=== PATIENT | female | born 1960 | race Caucasian/White ===

== ENCOUNTER 2020-05-27 23:11 | Emergency (ER) | payer OTHER ==
--- OUTSIDE RECORDS SUMMARY | 2020-05-27 23:14 | XMS REPORT | Clinical Summary ---
:1960 Author Organization [facility] Address [address] [place] [address] Care Team Providers Name Role Phone Dyllan Beckford MD Primary Care Provider Allergies Active Allergy Reactions Severity Noted Date Comments Ciprofloxacin Other (See 10/30/2013 Reaction-heada breana, bones Comments) ache Other Itching, Rash High 10/30/2013 Hydrocodonieph en reaction rash/itch-per s can chart- Staydohl-reacti on-throat swells,fever-pe r scan chart Penicillins Swelling High 10/30/2013 Throat swells Sulfa (Sulfonamide Itching, Rash Low 10/30/2013 Sulfa Antibiotics) Tramadol Other (See 10/30/2013 Reactions-sever e stomach Comments) pain Medications Medication Sig Dispensed Refills Start End Status Date Date PROAIR HFA 90 INHALE 2 PUFFS 2 A ctive mcg/actuation BY MOUTH 4 TIMES 6 inhaler A DAY NEEDED amLODIPine Take 5 mg by 3 Active (NORVASC) 5 mg mouth once 6 tablet daily. sucralfate 0 Active (CARAFATE) 1 gram 6 tablet PREPOPIK 10 mg-3.5 FOLLOW 0 A ctive gram-12 gram INSTRUCTIONS 6 powder in packet GIVEN BY PHYSICIAN omeprazole 0 Active (PriLOSEC) 40 MG 6 capsule FLUARIX QUAD TO BE 0 Active [id number], PF, ADMINISTERED BY 6 syringe vaccine PHARMACIST FOR IMMUNIZATION calcitriol TAKE 1 CAPSULE 1 Acti ve (ROCALTROL) 0.5 BY MOUTH 3 6 MCG capsule (THREE) TIMES DAILY. vitamin A 8000 Take 8,000 Units 0 Active UNIT capsule by mouth daily. ferrous sulfate Take 1 tablet by 0 Active (IRON ORAL) mouth daily. MULTIVITAMIN ORAL Take 1 tablet by 0 Active mouth daily. syringe with 1 Syringe every 1 Syringe 12 A ctive needle, safety 3 30 (thirty) 8 mL 22 gauge x 1 days. /" syringeIndications : Status post bariatric surgery ondansetron Take 1 tablet (4 20 tablet 0 A ctive (ZOFRAN) 4 MG mg total) by 9 tablet mouth every 8 (eight) hours as needed for nausea or vomiting. cyanocobalamin Inject 1 mL 3 mL 4 Act spencer 1,000 mcg/mL (1,000 mcg 9 injectionIndicatio total) into the ns: Status post shoulder, thigh, bariatric surgery or buttocks every 30 (thirty) days. ondansetron Take 1 tablet (4 30 tablet 1 A ctive (ZOFRAN) 4 MG mg total) by 9 tablet mouth every 8 (eight) hours as needed for nausea or vomiting. dicyclomine Take 1 capsule 120 capsule 4 A ctive (BENTYL) 10 MG (10 mg total) by 9 020 capsule mouth 4 (four) times a day before meals and nightly. ferrous gluconate Take 1 tablet 30 tablet 3 Active (FERGON) 324 MG (324 mg total) 9 020 tablet by mouth daily with breakfast. cyanocobalamin Inject 1 mL 1 mL 0 Dis continued 1,000 mcg/mL (1,000 mcg 8 019 (Reord er) injectionIndicatio total) into the ns: Status post shoulder, thigh, bariatric surgery or buttocks every 30 (thirty) days. cyanocobalamin NJECT 1 MLIM 3 mL 4 Di scontinued 1,000 mcg/mL EVERY MONTH 9 019 (Reor darwin) injectionIndicatio ns: Status post bariatric surgery hyoscyamine Take 1 tablet 30 tablet 2 Expi red (LEVSIN) 0.125 mg (0.125 mg total) 9 019 tablet by mouth every 4 (four) hours as needed for cramping for up to 30 days. Active Problems Problem Noted Date Epigastric abdominal pain 07/25/2019 Last Assessment & Plan: The patient was also sent for an amylase and lipase which returned as normal. Patient has had a normal ultrasound as w ell as a CT scan of her abdomen pelvis. The patient is already had a ERCP with stent placement and stent retrieval. I have been trying to obtain these records from [facility]. The patient reports her last upper endoscopy was approximately 1 year ago. The patient will be referred to GI for repeat upper endoscopy and any ad ditional work-up necessary. The patient was also given additional Zofran. Patient h as had normal LFTs on 07/21/2019 and was sent for an amylase and lipase which were als o normal today. S/P ERCP 03/06/2017 Common bile duct obstruction 03/06/2017 Bile duct obstruction 03/06/2017 Status post gastric bypass for obesity 11/09/2016 Last Assessment & Plan: Patient was instructed to continue regular diet and increase intake of high- calorie foods like nuts. Weight gain goal of 10lbs at next visit. Patient to provide color copy of January 2019 EGD from [facility] for review. If her abdominal pain still persists in 1 month, she was instructed to call our office to schedule UGI and EGD. Possible abdominal CT at a later time. Labs reviewed with the patient in de tail. Continue taking PO iron and PPI. Discontinue carafate. The patient was allowed ample time for n umerous questions that were answered to her satisfaction. The patient was examined and evaluated with Dr. Rodas and he agrees with the above plan. Return to clinic in 1 year for the next follow-up visit. History of hyperparathyroidism 11/09/2016 Wheezing 08/30/2016 Asthma 08/30/2016 Urgency of urination 08/30/2016 Overview: Urgency and nocturia weak bladder Difficulty urinating 08/30/2016 Overview: Pain/buring with urinating Joint pain 08/30/2016 Back pain 08/30/2016 Major bone injuries 08/30/2016 Non-alcoholic fatty liver disease 10/20/2014 Encounters Date Type Specialty Care Team Description 09/05/2019 Telephone Gastroenterology Mihir Reina MA 09/05/2019 Orders Only Gastroenterology Venkat Garrett MD 09/03/2019 Office Visit Gastroenterology Ap Reyes, Abdominal pain, unspecified abdominal location (Primary Dx); Biliary strictu re; History of sinai bin bypass; Weight loss 09/03/2019 Orders Only Gastroenterology Venkat Garrett MD 09/02/2019 Refill General Surgery Douglas Rodas, Status po st bariatric MD surgery 09/02/2019 Documentation General Surgery Luz Maria Kerns, Outside testing MA 08/28/2019 Telephone Gastroenterology Palak Rizvi, CURT 08/26/2019 Hospital Encounter Radiology Douglas Rodas MD 08/25/2019 Refill General Surgery Douglas Rodas, Status po st bariatric MD surgery 08/07/2019 Telephone Gastroenterology Mihir Reina MA 07/24/2019 Lab Lab Douglas Rodas, Abdominal pa in, unspecified abd ominal location 07/24/2019 Office Visit General Surgery Douglas Rodas, Epigastri c abdominal MD pain (Primary D x) 07/24/2019 Orders Only General Surgery Douglas Rodas, Abdominal pain, MD unspecified abd ominal location (Prima ry Dx) 07/21/2019 Refill General Surgery Douglas Rodas, Status po st bariatric surgery 07/18/2019 Orders Only General Surgery Douglas Rodas, Abdominal pain, MD unspecified abd ominal location (Prima ry Dx) 07/11/2019 Hospital Encounter Radiology Douglas Rodas, Left u pper quadrant MD pain 07/02/2019 Orders Only General Surgery Douglas Rodas, Left uppe r quadrant MD pain (Primary D x) 07/01/2019 Telephone General Surgery Carmen Ramos, CURT 07/01/2019 Telephone General Surgery Carmen Ramos, CURT 06/25/2019 Hospital Encounter Radiology Douglas Rodas, Status post gastric MD bypass for obes ity 06/16/2019 Orders Only General Surgery Douglas Rodas, Status po st gastric MD bypass for obes ity (Primary Dx) 06/16/2019 Orders Only General Surgery Douglas Rodas MD 06/06/2019 Office Visit General Surgery Douglas Rodas, Hx of acu te pancreatitis (Primary Dx); MD History of morb id obesity; Iron deficiency anemia, unspecified iron deficiency anemia type; Vitamin A defic iency; Status post gas tric bypass for obesity; Epigastric pain 06/02/2019 Telephone General Surgery Carmen Ramos, RN after 05/27/2019 Family History Medical History Relation Name Comments No Known Problems Brother Cancer Father mesotheleoma can cer Hypertension Mother Pneumonia Mother Rheum arthritis Mother Stroke Other Grandfather Diabetes Other Uncle Stroke Other Uncle No Known Problems Sister No Known Problems Sister No Known Problems Sister Colon cancer Neg Hx Colon polyps Neg Hx Relation Name Status Comments Brother Alive Father (Age 79) Mother (Age 76) Other Grandfather Other Uncle Sister Alive Sister Alive Sister Alive Social History Tobacco Use Types Packs/Day Years Used Date Former Smoker Smokeless Tobacco: Never Used Alcohol Use Drinks/Week oz/Week Comments No Sex Assigned at Date Recorded Not on file Job Start Date Occupation Industry Not on file Not on file Not on file Travel History Travel Start Travel End No recent travel history available. Last Filed Vital Signs Vital Sign Reading Time Taken Comments Blood Pressure 138/76 09/03/2019 1:08 PM CDT Pulse 71 09/03/2019 1:08 PM CDT Temperature 36.9 C (98.5 F) 07/24/2019 11:48 AM CDT Respiratory Rate 16 07/24/2019 11:48 AM CDT Oxygen Saturation - - Inhaled Oxygen Concentration - - Weight 53 kg (116 lb 12.8 oz) 09/03/2019 1:08 PM CDT Height 160 cm (5' 3") 09/03/2019 1:08 PM CDT Body Mass Index 20.69 09/03/2019 1:08 PM CDT Plan of Treatment Date Type Specialty Care Team Description 06/10/2020 Office Visit General Surgery Douglas Rodas MD [address] [facility] [address] [place], [place] [address] [phone] Health Maintenance Due Date Last Done Comments BREAST CANCER SCREENING 2008 SHINGLES VACCINES (#1) 2008 CERVICAL CANCER SCREENING 11/26/2014 11/26/2011 INFLUENZA VACCINE 06/26/2020 09/30/2019 COLONOSCOPY SCREENING 11/26/2020 11/26/2010 Procedures Procedure Name Priority Date/Time Associated Diagnosis Comme nts LIPASE LEVEL Routine 09/03/2019 1:48 Abdominal pain, Results for this PM CDT unspecified procedure are i n abdominal locati on the results Biliary stricture section. AMYLASE LEVEL Routine 09/03/2019 1:48 Abdominal pain, Results for this PM CDT unspecified procedure are i n abdominal locati on the results Biliary stricture section. CBC WITH PLATELET AND Routine 09/03/2019 1:48 Abdominal pain, Results for this DIFFERENTIAL PM CDT unspecified procedure are i n abdominal locati on the results Biliary stricture section. MRI ABD/PELVIC Routine 08/21/2019 11:09 Results f or this EXTERNAL STUDY AM CDT procedure are in the results section. LIPASE LEVEL Routine 07/24/2019 12:17 Abdominal pain, Results for this PM CDT unspecified procedure are i n abdominal location the resul ts section. AMYLASE LEVEL Routine 07/24/2019 12:17 Abdominal pain, Results for this PM CDT unspecified procedure are i n abdominal location the resul ts section. HEPATIC FUNCTION Routine 07/21/2019 9:20 Abdominal pain, Resu lts for this PANEL AM CDT unspecified procedure are i n abdominal location the resul ts section. CT ABDOMEN PELVIS W Routine 07/11/2019 11:34 Left upper quadra nt Results for this CONTRAST AM CDT pain procedure are i n the results section. ESTIMATED GFR Routine 07/11/2019 10:20 Results fo r this AM CDT procedure are i n the results section. POC CREATININE Routine 07/11/2019 10:20 Results f or this AM CDT procedure are i n the results section. ZZFL UGI W AIR W KUB Routine 06/25/2019 10:35 Status post sinai bin Results for this AM CDT bypass for obesity procedure are in the results section. after 05/27/2019 Results CBC with platelet and differential (09/03/2019 1:48 PM CDT) WBC 7.0 3.8 - 10.8 [facility] Thousand/uL [place] RBC 4.34 3.80 - 5.10 [facility] Million/uL [place] HGB 10.9 (L) 11.7 - 15.5 [facility] g/dL [place] HCT 34.6 (L) 35.0 - 45.0 % [facility] [place] MCV 79.7 (L) 80.0 - 100.0 fL [facility] [place] MCH 25.1 (L) 27.0 - 33.0 pg [facility] [place] MCHC 31.5 (L) 32.0 - 36.0 [facility] g/dL [place] RDW 14.9 11.0 - 15.0 % [facility] [place] Platelet count 299 140 - 400 [facility] Thousand/uL [place] MPV 10.2 7.5 - 12.5 fL [facility] [place] Neutrophils, absolute 4,025 1,500 - 7,800 [facility] cells/uL [place] Lymphocytes, absolute 2,114 850 - 3,900 [facility] cells/uL [place] Monocytes, absolute 581 200 - 950 [facility] cells/uL [place] Eosinophils, absolute 182 15 - 500 [facility] cells/uL [place] Basophils, absolute 98 0 - 200 [facility] cells/uL [place] Neutrophils 57.5 % [facility] [place] Lymphocytes 30.2 % [facility] [place] Monocytes 8.3 % [facility] [place] Eosinophils 2.6 % [facility] [place] Basophils + RC 1.4 % [facility] [place] Specimen Blood Resulting Agency Comment Performing Organization Information: Site ID: [id number] [facility] Address: [address] [place], [place] [id number] Director: Jose Carlos Iyer Performing Organization Address [facility] [place] [address] Lipase level (09/03/2019 1:48 PM CDT)Only the most recent of2 resultswithin the time period is included. Pathologist Sig nature Lipase 14 7 - 60 U/L [facility] [place] Specimen Blood Resulting Agency Comment Performing Organization Information: Site ID: [id number] Name: [facility] Address: [address] [place] [phone] Director: Jose Carlos Iyer Performing Organization Address [facility] [place] [address] Amylase level (09/03/2019 1:48 PM CDT)Only the most recent of2 resultswithin the time period is included. Pathologist Sig nature Amylase 16 (L) 21 - 101 U/L [facility] [place] Specimen Blood Resulting Agency Comment Performing Organization Information: Site ID: [id number] Name: [facility] Address: [address] [place] [phone] Director: Jose Carlos Iyer Performing Organization Address [facility] [place] [address] MRI Abd/Pelvic External Study (08/21/2019 11:09 AM CDT) Specimen Narrative Performed At This exam was not acquired at a [facility] facility and has not been [facility] interpreted by a [facility] Provider. T he exam was imported into our imaging system for comparisons purposes. Performing Organization Address City/[facility]/Zipcode Phone Number [facility] [address] [place] [address] Hepatic function panel (07/21/2019 9:20 AM CDT) Pathologist [facility] Protein 6.6 6.1 - 8.1 g/dL [facility] [place] Albumin, S 4.0 3.6 - 5.1 g/dL [facility] [place] Globulin, total 2.6 1.9 - 3.7 g/dL [facility] (calc) [place] Albumin/globulin ratio 1.5 1.0 - 2.5 [facility] (calc) [place] Total bilirubin 0.6 0.2 - 1.2 mg/dL [facility] [place] Bilirubin direct 0.1 < OR = 0.2 [facility] mg/dL [place] Bilirubin, indirect 0.5 0.2 - 1.2 mg/dL [facility] (calc) [place] Alkaline phosphatase 75 33 - 130 U/L [facility] [place] AST 17 10 - 35 U/L [facility] [place] ALT 13 6 - 29 U/L [facility] [place] Specimen Blood Resulting Agency Comment Performing Organization Information: Site ID: [id number] Name: [facility] Address: [address] [place] [phone] Director: Jose Carlos Iyer Performing Organization Address City/[facility] Phone Number [facility] [place] [phone] CT Abdomen Pelvis W Contrast (07/11/2019 11:34 AM CDT) Specimen Narrative Performed At EXAMINATION: CT ABDOMEN PELVIS W CONTR AST HM [facility] CLINICAL HISTORY: R10.12 Left upper qu adrant pain, LUQ Pain COMPARISON: 01/19/2015 TECHNIQUE: CT of the abdomen and pelvi s with intravenous contrast. CT imaging was performed with iterative reconstruction techniques and/or automated exposure control to reduce rad iation dose. FINDINGS: LOWER THORAX: Mild bibasilar atelectasis. There has been interval repair of a right-sided Morgagni hernia with mesh. No recurrent hernia appreciated. HEPATOBILIARY: Cholecystectomy. No foc al hepatic lesions. SPLEEN: No splenomegaly. PANCREAS: No focal masses or ductal di lation. ADRENALS: No adrenal nodules. KIDNEYS: No hydronephrosis, stones or solid masses. GI TRACT: Generalized colonic diverticulosis without definite CT evidence of diverticulitis. Evaluation is somewhat charlton ited by paucity of intra-abdominal fat. The appendix is not localized for evaluation. There has been previous Torres-en-Y gastric bypa ss with expectant postoperative appearance. There is a t iny hiatal hernia (coronal image 27). There is no bowel ob struction. PERITONEUM/RETROPERITONEUM: Prominent atheroscleroti c disease in the abdominal aorta which is nonaneurysmal. There is no ab dominal adenopathy or ascites. There are some postsurgical changes in the anterior abdominal wall in the right lower quadra nt. PELVIC ORGANS/BLADDER: Hysterectomy. N o pelvic adenopathy or fluid. BONES AND SOFT TISSUES: Bilateral hip arthroplasties . Degenerative changes in the spine. IMPRESSION: 1. No definite acute finding to explain patient's le ft upper quadrant pain. 2. Status post previous Torres-en-Y gastric bypass, Mo rgagni hernia repair, cholecystectomy and hysterectomy . 3. Additional findings as above [id number] Procedure Note Interface, Radiology Results Incoming - 07/11/2019 12:09 PM CDT EXAMINATION: CT ABDOMEN PELVIS W CONTRAST CLINICAL HISTORY: R10.12 Left upper walter drant pain, LUQ Pain COMPARISON: 01/19/2015 TECHNIQUE: CT of the abdomen and pelvis with intravenous contrast. CT imaging was performed with iterative reconstruction techniques and/or automated exposure control to reduce radiation dose. FINDINGS: LOWER THORAX: Mild bibasilar atelectasi s. There has been interval repair of a right-sided Morgagni hernia with mesh. No recurrent hernia appreciated. HEPATOBILIARY: Cholecystectomy. No foca l hepatic lesions. SPLEEN: No splenomegaly. PANCREAS: No focal masses or ductal dil ation. ADRENALS: No adrenal nodules. KIDNEYS: No hydronephrosis, stones or s olid masses. GI TRACT: Generalized colonic diverticu losis without definite CT evidence of diverticulitis. Evaluation is somewhat limited by paucity of intra-abdominal fat. The appendix is not localized for evaluation. There has been previous Torres-en-Y gastric bypa ss with expectant postoperative appearance . There is a tiny hiatal hernia (coronal image 27). There is no bowel obstruction. PERITONEUM/RETROPERITONEUM: Prominent a therosclerotic disease in the abdominal aorta which is nonaneurysmal. There is no abdominal adenopathy or ascites. There are some postsurgical changes in the anterior abdominal wall in the right lower quadrant. PELVIC ORGANS/BLADDER: Hysterectomy. No pelvic adenopathy or fluid. BONES AND SOFT TISSUES: Bilateral hip a rthroplasties. Degenerative changes in the spine. IMPRESSION: 1. No definite acute finding to explain patient's left upper quadrant pain. 2. Status post previous Torres-en-Y gastr ic bypass, Morgagni hernia repair, cholecystectomy and hysterectomy. 3. Additional findings as above [id number] Performing Organization Address [facility] Hospital[facility] Phone Number [address] [address] Estimated GFR (07/11/2019 10:20 AM CDT) Pathologist [facility] Estimated GFR >=90 mL/min/1.73 [facility] Comment: HOSPITAL Catergory Units Interpretation G1 >=90 Normal or high G2 60-89 Mildly decreased G3a 45-59 Mildly to moderately decreas ed G3b 30-44 Moderately to severely decre ased G4 15-29 Severely decreased G5 <15 Kidney failure The eGFR was calculated using the Chronic Kidney Disea se Epidemiology Collaboration (CKD-EPI) equation. Interpretation is based on recommendations of the National Kidney Foundation-Kidney Disease Outcomes Walter lity Initiative (NKF-KDOQI) published in 2014. Specimen Blood Performing Organization Address [facility] Phone Number [facility] DEPARTMENT OF PATHOLOGY AND [address] [place] [address] [phone] [address] POC creatinine (07/11/2019 10:20 AM CDT) [facility] POC creatinine 0.6 0.5 - 0.9 mg/dl [facility] Comment: HOSPITAL Meter ID: [id number] Strategic Planner: Adalberto Garcia Specimen Blood Performing Organization Address [facility]/Zipcode Phone Number [facility] DEPARTMENT OF PATHOLOGY AND [address] [place] [address] [phone] [address] FL UGI w Air W KUB (06/25/2019 10:35 AM CDT) Specimen Narrative Performed At EXAMINATION: FL UGI W AIR W KUB [facility] CLINICAL HISTORY: Z98.84 Bariatric kaitlyn sudha status, s p rygb COMPARISON: None. TECHNIQUE: Effervescent crystals and barium administ ered by mouth. Patient imaged in the upright and recu mbent positions. FLUOROSCOPIC TIME: 1.7 minutes . 16 image(s) obtained. Findings: Abdomen shows nonobstructive bowel gas pattern. Bilate ral hip arthroplasty partially seen. Surgical clips projecting in the right hemiabdomen and ventral hernia repair with mesh at the epigastric region midline. Esophageal motility well-maintained. Esophagus demonst rates no mass or stricture. No mucosal irregularity. Status post gastri c bypass. Small sliding hiatal hernia. No gastroesophageal reflux obse rved however. The gastric pouch demonstrates nothing unusual. Contrast readily traverses the gastrojejunost porfirio. The visualized small bowel demonstrates noth ing unusual. IMPRESSION: Small sliding hiatal hernia, without GE reflux observ ed. Otherwise, status post gastric bypass with satisfac tory postoperative appearance. [id number] Procedure Note Interface, Radiology Results Incoming - 06/25/2019 1:17 PM CDT EXAMINATION: FL UGI W AIR W KUB CLINICAL HISTORY: Z98.84 Bariatric surg yovany status, s p rygb COMPARISON: None. TECHNIQUE: Effervescent crystals and ba rium administered by mouth. Patient imaged in the upright and recumbent positions. FLUOROSCOPIC TIME: 1.7 minutes . 16 image(s) obtained. Findings: Abdomen shows nonobstructive bowel gas p attern. Bilateral hip arthroplasty partially seen. Surgical clips projecting in the right hemiabdomen and ventral hernia repair with mesh at the epigastric region midline. Esophageal motility well-maintained. Eso phagus demonstrates no mass or stricture. No mucosal irregularity. Status post gastric bypass. Small sliding hiatal hernia. No gastroesophageal reflux observed however. The gastric pouch demonstrates nothing unusual. Contrast readily traverses the gastrojejunostomy. The visualized small bowel demonstrates nothing unusual. IMPRESSION: Small sliding hiatal hernia, without GE reflux observed. Otherwise, status post gastric bypass with satisfactory postoperative appearance. [id number] Performing Organization Address City/State/Zipcode Phone Number [facility] [address] [place] [address] after 05/27/2019 Insurance Payer Benefit Plan / Subscriber ID Effective Dates Phone Addre ss Type Group MEDICARE MEDICARE PART A xxxxxxxxxxx 1996-Present [facility] [place] B AETNA AETNA PPO OPEN xxxxxxxxxx 2003-Present PPO CHOICE Advance Directives For more information, please contact: [phone] Type Date Recorded Patient Requirements Manager Explanati on Advance Directives, Living Will and Medical Power of Land Leasing Examiner
--- OUTSIDE RECORDS SUMMARY | 2020-05-27 23:15 | XMS REPORT | Clinical Summary ---
:1960 Author Organization [facility] Address [address] [place] [address] Care Team Providers Name Role Phone Nikolay Beckford MD Primary Care Provider Allergies Active Allergy Reactions Severity Noted Date Comments Hydrocodone-Acetaminophe Nausea And Vomiting, Low 01/25/20 17 n Rash Adhesive Itching, Swelling High 03/01/2017 Tongue swe lling Butorphanol Tartrate Anaphylaxis High 01/24/2017 Cephalexin Hives Medium 01/24/2017 Ciprofloxacin Other (See Comments) Medium 01/24/2017 Bone a ches Codeine Rash Low 01/24/2017 Fentanyl Anxiety High 01/24/2017 Fentanyl patch only Gabapentin Itching Medium 01/24/2017 Lidocaine Tinitus Low 03/06/2017 Lidocaine patch Meloxicam Shortness Of Breath High 11/14/2019 Difficul ty breathing Morphine Hives, Nausea And High 01/24/2017 Tongue swe lling Vomiting, Swelling Penicillins Anaphylaxis High 01/24/2017 Pentazocine Anaphylaxis High 01/24/2017 Sulfa (Sulfonamide Rash Low 01/24/2017 Antibiotics) Tramadol Anaphylaxis High 01/24/2017 Acetaminophen Nausea And Vomiting, Low 01/24/2017 Rash Medications Medication Sig Dispensed Refills Start End Date Status Date calcitriol Take 1 mcg by mouth 0 Active (ROCALTROL) 0.5 2 (two) times daily MCG capsule . cyanocobalamin Inject 1,000 mcg 0 Active (VITAMIN B-12) intramuscularly 1,000 mcg/mL every 30 (thirty) injection days. albuterol HFA Inhale 2 puffs by 0 Active (VENTOLIN HFA) 90 mouth via inhaler mcg/actuation every 6 (six) hours inhaler as needed for Wheezing or Shortness of Breath. docosanol (ABREVA) Apply small amount 2 g 0 Active 10 % Crea to areas on 7 affected area of lips 5 times a day. omeprazole Take 40 mg by mouth 0 Active (PRILOSEC) 40 MG 2 (two) times daily capsule . MULTIVITAMIN-VP SALES Take by mouth. 0 Active ALS NO.55 (CENTRUM FLAVOR BURST ADULT ORAL) calcium carbonate Take 2,000 mg by 0 Active 1250 MG capsule mouth 2 (two) times daily with breakfast and dinner . vitamin A 8000 Take 8,000 Units by 0 Active UNIT capsule mouth daily. HYDROmorphone Take 1 tablet (2 mg 40 tablet 0 Active (DILAUDID) 2 MG total) by mouth 9 tablet every 6 (six) hours as needed for Pain for up to 10 doses. Max Daily Amount: 8 mg ferrous gluconate Take 648 mg by 0 Active (FERGON) 324 MG mouth 2 (two) times tablet daily . magnesium oxide Take by mouth daily 0 Active 500 mg Cap . ondansetron Take 8 mg by mouth 0 Active (ZOFRAN-ODT) 8 MG 2 (two) times daily disintegrating as needed for tablet Nausea. amLODIPine Take 2.5 mg by 0 Acti ve (NORVASC) 2.5 MG mouth daily. tablet pancrelipase, Take 1 capsule by 0 Active Xmo-Efgk-Bbso, mouth 2 (two) times (ZENPEP) daily. 20,000-63,000- 84,000 unit CpDR capsule amLODIPine Take 2.5 mg by 0 04/26/20 Disc ontinued (NORVASC) 10 MG mouth daily . 20 tablet magnesium oxide Take 400 mg by 0 09/26/20 Discontinued (MAG-OX) 400 mg mouth 2 (two) times 19 tablet daily. sucralfate Take 1 g by mouth 2 0 09/26/20 Discontinued (CARAFATE) 1 gram (two) times daily. 19 tablet IRON,CARBONYL/ASCO Take by mouth daily 0 1 01/15/20 Discontinued RBIC ACID . 19 (IRON-VITAMIN C ORAL) HYDROmorphone Take 0.5 tablets (1 5 tablet 0 Discontinued (DILAUDID) 2 MG mg total) by mouth 7 19 tablet every 8 (eight) hours as needed for up to 10 doses. Max Daily Amount: 3 mg HYDROmorphone Take 1 tablet (2 mg 40 tablet 0 Discontinued (DILAUDID) 2 MG total) by mouth 9 19 tablet every 6 (six) hours as needed for Pain for up to 10 doses. Max Daily Amount: 8 mg polyethylene Take 17 g by mouth 510 g 1 10/30/20 glycol (GLYCOLAX) daily for 30 days. 9 19 17 gram packet ondansetron Take 1 tablet (4 mg 60 tablet 0 10/07/20 (ZOFRAN-ODT) 4 MG total) by mouth 9 19 disintegrating every 6 (six) hours tablet as needed for up to 7 days. 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 S/P ERCP 03/06/2017 Bile duct obstruction 03/06/2017 Common bile duct obstruction 03/06/2017 Epigastric abdominal pain of unknown etiology 01/25/20 17 Encounters Date Type Specialty Care Team Description 04/27/2020 Anesthesia Event Gastroenterology Hortencia Flores MD 04/27/2020 Surgery Gastroenterology Tej Ovalle ENDOSCOP Y,SMALL INTESTINE 04/27/2020 [facility] Gastroenterology Tej Ovalle Encounter 04/26/2020 Hospital Pre-Admission Testing Encounter 04/26/2020 Travel 12/16/2019 Anesthesia Event Gastroenterology Lauren Lim GRNA 12/16/2019 [facility]le UPPER EN DOSCOPY 12/16/2019 [facility] GastroenterTej Bill Encounter 11/18/2019 Anesthesia Event Gastroenterology Mckay Sanchez MD 11/18/2019 Surgery Gastroenterology Patricia Augustine UPPER EN DOSCOPY Davide Boland MD 11/18/2019 [facility] Gastroenterology Patricia Augustine Encounter Davide Boland MD 11/14/2019 Hospital Pre-Admission Testing Encounter 09/27/2019 Anesthesia Event Gastroenterology Gin Greene CRNA 09/27/2019 Surgery Gastroenterology Tej Ovalle ERCP,BAL LOON DILATATION 09/26/2019 Travel 09/25/2019 Orders Only General Internal Medicine 09/24/2019 Anesthesia Event Gastroenterology Vladislav Figueredo Jr., MD 09/24/2019 Surgery Gastroenterology Patricia Augustine [facility] Davide Boland MD ENDOSCOPY,FNA W/ULTRASOUND 09/24/2019 - Hospital General Internal Patricia Augustine Bile kathe t obstruction (Primary Dx); 09/30/2019 Encounter Medicine Davide Boland MD Common bile duct (CBD) stricture Deepak Anthony MD after 05/27/2019 Immunizations Name Dates Previously Given Next Due Influenza (Flublok)_0.5ml Qiv_im_egg & Antibiotic 09/30/2019 Free Pf Family History Medical History Relation Name Comments Cancer Father Hypertension Mother Relation Name Status Comments Father Mother Social History Tobacco Use Types Packs/Day Years Used Date Former Smoker 0.25 22 Smokeless Tobacco: Never Used Comments: quit 2009 Alcohol Use Drinks/Week oz/Week Comments No Sex Assigned at Date Recorded Not on file Job Start Date Occupation Industry Not on file Not on file Not on file Travel History Travel Start Travel End No recent travel history available. Last Filed Vital Signs Vital Sign Reading Time Taken Blood Pressure 136/78 04/27/2020 11:40 AM CDT Pulse 45 04/27/2020 11:40 AM CDT Temperature 36.4 C (97.5 F) 04/27/2020 11:40 AM CDT Respiratory Rate 16 04/27/2020 11:40 AM CDT Oxygen Saturation 98% 04/27/2020 11:40 AM CDT Inhaled Oxygen Concentration 21% 09/30/2019 3:45 PM VALVE [facility]ERTER Weight 48 kg (105 lb 14.4 oz) 04/27/2020 8:12 AM CDT Height 160 cm (5' 3") 04/27/2020 8:12 AM CDT Body Mass Index 18.76 04/27/2020 8:12 AM CDT Plan of Treatment Date Type Specialty Care Team Description 06/01/2020 Hospital Encounter Gastroenterology Tej Ovalle [address] [facility] [address] [place], [place] [address] [phone] 06/01/2020 Anesthesia Event Gastroenterology Fiorella Parker MD [address] [place] [address] [address] [place], [place] [address] [phone] 06/01/2020 Surgery Gastroenterology Tej Ovalle UPPER ENDOSCOPY,FNA [address] W/ULTRASOUND [address] [place], [place] [address] [phone] Implants Implanted Type Area [employer] Device Shelf Model / Identifier Expiration Date Ser ial / Lot Stent Pancreas Geenen 5fr 4cm [id number] - [id number] IMPLANTS COOK:ENDOSCOPY [id number] / Implanted: Qty: 1 on 09/27/2019 by Tej Ovalle (IRAIDA) / Explanted Type [employer]ist Device Shelf Model / Serial / Identifier Expiration Lot Date Axios [id number] [place] 07/14/2020 [id number] / Implanted: Qty: 1 on 09/24/2019 by Patricia Augustine MD SCIENTIFIC / Explanted: Qty: 1 on 11/18/2019 [id number] Axios 15x 10 [place] 03/31/2021 [id number] / Implanted: Qty: 1 on 09/24/2019 by Patricia Augustine MD SCIENTIFIC / Explanted: Qty: 1 on 11/18/2019 [id number] Procedures Procedure Name Priority Date/Time Associated Diagnosis Comme nts REPORT OF 04/27/2020 10:28 PROCEDURE - AM CDT ENDOSCOPY URL UPPER 04/27/2020 9:00 Abdominal pain, ENDOSCOPY,DILATATI AM CDT unspecified ON abdominal locati on Dilated cbd, acquired Gastric bypass status for obesity ENTEROSCOPY,BALLOO 04/27/2020 9:00 Abdominal pain, N OVERTUBE SMALL AM CDT unspecified INTESTINE-UPPER abdominal locati on Dilated cbd, acquired Gastric bypass status for obesity ENDOSCOPY,SMALL 04/27/2020 9:00 Abdominal pain, INTESTINE AM CDT unspecified abdominal locati on Dilated cbd, acquired Gastric bypass status for obesity REPORT OF 12/16/2019 11:26 PROCEDURE - AM [facility]TER ENDOSCOPY URL ENTEROSCOPY,DIAGNO 12/16/2019 9:00 Epigastric p ain STIC AM [facility]TER Gastric bypass status for obesity UPPER ENDOSCOPY 12/16/2019 9:00 Epigastric pain AM [facility]TER Gastric bypass status for obesity REPORT OF 11/19/2019 1:48 PROCEDURE - PM [facility]TER ENDOSCOPY URL TISSUE EXAM AP Routine 11/18/2019 12:11 Results for this PM [facility] procedure are i n the results section. UPPER 11/18/2019 11:00 Common bile duct ENDOSCOPY,BIOPSY AM [facility]ERTER stone Special Needs (C-ARM) UPPER ENDOSCOPY 11/18/2019 11:00 AM [facility]VE INSERTER Common bile du ct stone Special Needs (C-ARM) RHYTHM STRIP - SCAN 10/02/2019 10:10 AM VALVE [facility]ERTER CBC W/PLT COUNT & Routine 09/30/2019 3:03 AM Res ults for this AUTO DIFFERENTIAL [facility] procedure are in the results section. CALCIUM, IONIZED Routine 09/30/2019 3:03 AM Resu lts for this [facility] procedure are i n the results section. MAGNESIUM Routine 09/30/2019 3:03 AM Results for this [facility]ERTER procedure are i n the results section. BASIC METABOLIC PANEL Routine 09/30/2019 3:03 AM Results for this (7) [facility] procedure are i n the results section. CBC W/PLT COUNT & Routine 09/30/2019 3:03 AM Res ults for this AUTO DIFFERENTIAL [facility]ERTER procedure are in the results section. CBC W/PLT COUNT & Routine 09/29/2019 4:04 AM Res ults for this AUTO DIFFERENTIAL [facility]ERTER procedure are in the results section. CALCIUM, IONIZED Routine 09/29/2019 4:04 AM Resu lts for this VALVE INSERTER procedure are i n the results section. MAGNESIUM Routine 09/29/2019 4:04 AM Results for this [employer]VE INSERTER procedure are i n the results section. BASIC METABOLIC PANEL Routine 09/29/2019 4:04 AM Results for this (7) [facility]ERTER procedure are i n the results section. CBC W/PLT COUNT & Routine 09/29/2019 4:04 AM Res ults for this AUTO DIFFERENTIAL [facility] procedure are in the results section. CT ABDOMEN/PELVIS STAT 09/28/2019 11:40 PM Res ults for this WITH IV CONTRAST [facility] procedure a re in the results section. HEPATIC FUNCTION Add-On 09/28/2019 9:48 PM Resu lts for this PANEL [facility] procedure are i n the results section. LIPASE STAT 09/28/2019 9:48 PM Results for this [facility]ERTER procedure are i n the results section. XR CHEST 1 VIEW Routine 09/28/2019 7:52 PM Resul ts for this PORTABLE/BEDSIDE [facility] procedure a re in the results section. CBC W/PLT COUNT & Routine 09/28/2019 4:51 AM Res ults for this AUTO DIFFERENTIAL [facility] procedure are in the results section. LIPASE Add-On 09/28/2019 4:51 AM Results for this [facility]ERTER procedure are i n the results section. MAGNESIUM Routine 09/28/2019 4:51 AM Results for this [facility]VE INSERTER procedure are i n the results section. BASIC METABOLIC PANEL Routine 09/28/2019 4:51 AM Results for this (7) [facility]TER procedure are i n the results section. CBC W/PLT COUNT & Routine 09/28/2019 4:51 AM Res ults for this AUTO DIFFERENTIAL [facility]ERTER procedure are in the results section. CALCIUM, IONIZED Routine 09/28/2019 4:50 AM Resu lts for this [facility]ERTER procedure are i n the results section. REPORT OF PROCEDURE - 09/27/2019 11:32 AM ENDOSCOPY URL CDT FL ERCP Routine 09/27/2019 11:15 AM Results for this CDT procedure are i n the results section. TISSUE EXAM AP Routine 09/27/2019 10:56 AM Results for this CDT procedure are i n the results section. ERCP,BALLOON SWEEPING 09/27/2019 9:00 AM Stricture of bile CDT duct Special Needs ercp w/ anes and fluoro PROCEDURE W/ C-ARM 09/27/2019 9:00 AM CDT Stricture o f bile duct Special Needs ercp w/ anes and fluoro ERCP,BALLOON DILATATION 09/27/2019 9:00 AM CDT Strict ure of bile duct Special Needs ercp w/ anes and fluoro CBC W/PLT COUNT & AUTO Routine 09/27/2019 5:21 AM CDT Results for this DIFFERENTIAL procedure are i n the results section . CALCIUM, IONIZED Routine 09/27/2019 5:21 AM CDT Results for this procedure are i n the results section . MAGNESIUM Routine 09/27/2019 5:21 AM CDT Resu lts for this procedure are i n the results section . BASIC METABOLIC PANEL (7) Routine 09/27/2019 5:21 AM CDT Results for this procedure are i n the results section . CBC W/PLT COUNT & AUTO Routine 09/27/2019 5:21 AM CDT Results for this DIFFERENTIAL procedure are i n the results section . CBC W/PLT COUNT & AUTO Routine 09/26/2019 4:43 AM CDT Results for this DIFFERENTIAL procedure are i n the results section . CALCIUM, IONIZED Routine 09/26/2019 4:43 AM CDT Results for this procedure are i n the results section . MAGNESIUM Routine 09/26/2019 4:43 AM CDT Resu lts for this procedure are i n the results section . BASIC METABOLIC PANEL (7) Routine 09/26/2019 4:43 AM CDT Results for this procedure are i n the results section . CBC W/PLT COUNT & AUTO Routine 09/26/2019 4:43 AM CDT Results for this DIFFERENTIAL procedure are i n the results section . MAGNESIUM Routine 09/25/2019 12:27 PM CDT Resu lts for this procedure are i n the results section . BASIC METABOLIC PANEL (7) Routine 09/25/2019 12:27 PM CDT Results for this procedure are i n the results section . CALCIUM, IONIZED Routine 09/25/2019 12:27 PM CDT Results for this procedure are i n the results section . REPORT OF PROCEDURE - 09/25/2019 9:49 AM CDT ENDOSCOPY URL ECG 12-LEAD Routine 09/25/2019 12:28 AM CDT Procedure Note - Interface, External Ris In - 09/25/2019 12:27 AM CDT Ventricular Rate 56 BPM Atrial Rate 56 BPM P-R Interval 142 ms QRS Duration 116 ms Q-T Interval 470 ms QTC Calculation(Bazett) 453 ms P [place] 79 degrees R [place] 79 degrees T [place] 32 degrees Sinus bradycardia Right bundle branch block Abnormal ECG No previous ECGs available ECG 12-LEAD Routine 09/25/2019 12:28 AM Results for this CDT procedure are i n the results section. CBC W/PLT COUNT & AUTO Routine 09/24/2019 4:22 PM Results for this DIFFERENTIAL CDT procedure are i n the results section. PROTHROMBIN TIME/INR Routine 09/24/2019 4:22 PM Results for this CDT procedure are i n the results section. CALCIUM, IONIZED Routine 09/24/2019 4:22 PM Resu lts for this CDT procedure are i n the results section. COMPREHENSIVE Routine 09/24/2019 4:22 PM Results for this METABOLIC PANEL CDT procedure ar e in the results section. CBC W/PLT COUNT & AUTO Routine 09/24/2019 4:22 PM Results for this DIFFERENTIAL CDT procedure are i n the results section. FL LOADING AND UNLOADING SUPERVISOR IN OR 30 Routine 09/24/2019 1:55 PM Results for this MINUTE INCREMENTS CDT procedure are in the results section. TISSUE EXAM AP Routine 09/24/2019 1:11 PM Results for this CDT procedure are i n the results section. UPPER ENDOSCOPY,BIOPSY 09/24/2019 12:30 PM Common bile CDT duct stone Special Needs (LINEAR SCOPE, C-ARM) PROCEDURE W/ C-ARM 09/24/2019 12:30 PM CDT Common bile duct stone Special Needs (LINEAR SCOPE, C-ARM) UPPER ENDOSCOPY,FNA W/ULTRASOUND 09/24/2019 12:3 0 PM CDT Common bile duct stone Special Needs (LINEAR SCOPE, C-ARM) after 05/27/2019 Results REPORT OF PROCEDURE - ENDOSCOPY URL (04/27/2020 10:28 AM CDT) Narrative Performed At This result has an attachment that is no t available. REPORT OF PROCEDURE - ENDOSCOPY URL (12/16/2019 11:26 AM VALVE [facility]ERTER) Narrative Performed At This result has an attachment that is no t available. REPORT OF PROCEDURE - ENDOSCOPY URL (11/19/2019 1:48 PM VALVE INSERTER) Narrative Performed At This result has an attachment that is no t available. Tissue Exam (11/18/2019 12:11 PM VALVE INSERTER)Only the most recent of3 resultswithin the time period is included. Case Report Surgical Pathology Report Case: [id number] [facility] Authorizing Provider:Patricia Claros Collected: 11/18/[address] [place] [address] MD Krystian Ordering Location: [facility] Endoscopy Received:11/18/2019 1356 Services Pathologist: Brenda Soto MD Specimen:Biopsy, Jejunum DIAGNOSIS JEJUNUM, ENDOSCOPY WITH BIOPSY: [facility] - ULCERATED AND INFLAMED MUCOSA WITH GRANULATIO N [facility] - NEGATIVE FOR MALIGNANCY Signing Pathologist Direct Phone Line: [phone] CPT Code(s) 00934 [facility] CLINICAL HISTORY Upper endoscopy with stent [facility] MEDICAL CENTER SPECIMEN SOURCE Biopsy jejunum [facility] GROSS DESCRIPTION Received in formalin with [facility] patient information and MEDICAL CENTER labeled jejunum are two fragments measuring 0.3 cm; submitted entirely in cassette labeled A. MICROSCOPIC DESCRIPTION PERFORMED [facility] Specimen Tissue - Biopsy, Jejunum Performing Organization Address City/State/Zipcode Phone Number [facility] [address] [place], [place] [id number] CENTER RHYTHM STRIP - SCAN (10/02/2019 10:10 AM VALVE INSERTER) Narrative Performed At This result has an attachment that is no t available. Calcium, Ionized (09/30/2019 3:03 AM VALVE INSERTER)Only the most recent of7 resultswithin the time period is included. Calcium, Ion 1.09 (L) 1.12 - 1.27 mmol/L [facility] pH, Blood 7.41 [facility] Specimen Blood Performing Organization Address City/[facility] Phone Number [facility] [address] [place] [address] DOUGLAS CBC with platelet count + automated diff (09/30/2019 3:03 AM VALVE INSERTER)Only the most recent of6 resultswithin the time period is included. WBC 5.4 3.5 - 10.5 K/L [facility] RBC 3.48 (L) 3.93 - 5.22 M/L [facility] Hemoglobin 8.6 (L) 11.2 - 15.7 GM/DL [facility] Hematocrit 27.9 (L) 34.1 - 44.9 % [facility] MCV 80.2 79.4 - 94.8 fL [facility] MCH 24.7 (L) 25.6 - 32.2 pg [facility] MCHC 30.8 (L) 32.2 - 35.5 GM/DL [facility] RDW 16.1 (H) 11.7 - 14.4 % [facility] Platelets 220 150 - 450 K/CU MM [facility] MPV 10.5 9.4 - 12.3 fL [facility] nRBC 0 0 - 0 /[address] [facility] % Neutros 48 % [facility] % Lymphs 31 % [facility] % Monos 12 % [facility] % Eos 7 % [facility] % Baso 2 % [facility] # Neutros 2.60 1.56 - 6.13 K/L [facility] # Lymphs 1.66 1.18 - 3.74 K/L [facility] # Monos 0.62 (H) 0.24 - 0.36 K/L [facility] # Eos 0.39 (H) 0.04 - 0.36 K/L [facility] # Baso 0.08 0.01 - 0.08 K/L [facility] Immature Granulocytes-Relative 0 0 - 1 % C HI [facility] Specimen Blood Performing Organization Address City/State/Zipcode Phone Number [address] [address] CENTER Magnesium (09/30/2019 3:03 AM VALVE INSERTER)Only the most recent of6 resultswithin the time period is included. Magnesium 1.5 (L) 1.6 - 2.6 mg/dL [facility] Specimen Blood Performing Organization Address City/[facility]/Zipcode Phone Number [address] [address] CENTER Basic Metabolic Panel (09/30/2019 3:03 AM VALVE INSERTER)Only the most recent of6 results within the time period is included. Sodium 142 136 - 145 meq/L [facility] Potassium 3.9 3.5 - 5.1 meq/L [facility] Chloride 104 98 - 107 meq/L [facility] CO2 32 (H) 22 - 29 meq/L [facility] BUN 4 (L) 7 - 21 mg/dL [facility] Creatinine 0.76 0.57 - 1.25 mg/dL [facility] Glucose 106 (H) 70 - 105 mg/dL [facility] Calcium 8.4 8.4 - 10.2 mg/dL [facility] EGFR 77Comment: ESTIMATED GFR IS mL/min/1.73 sq m [facility] NOT ACCURATE CREATININE [facility] CLEARANCE IN PREDICTING GLOMERULAR FILTRATION RATE. ESTIMATED GFR IS NOT APPLICABLE FOR DIALYSIS PATIENTS. Specimen Blood Performing Organization Address City/State/Zipcode Phone Number [facility] [address] [place] [address] abdomen/pelvis with IV contrast (09/28/2019 11:40 PM VALVE INSERTER) Specimen Narrative Performed At FINAL REPORT Open-Plug [facility] CLINICAL HISTORY: Epigastric pain, histo ry of gastric bypass and pancreatitis, recent endoscopy FINDINGS: Multiple axial images of the abdomen and pelvis were performed after the uncomplicated administration of IV c ontrast. Oral contrast was not given. This exam was performed according to our departmental dose-optimization program, which include s automated exposure control, adjustment of the mA and/or kV according to patient size and/or use of the iterative reconstruction techniqu e. The examination is limited by lack of en teric contrast in the small bowel and minimal intra-abdominal fat. P lease note there is high density enteric contrast in the colon, l ikely from recent ERCP. Comparison:None. Lower chest: Curvilinear atelectasis andrei laurel scarring in the left lower lung. No pleural effusion or pneum othorax. Visualized cardiac contours normal. Liver: The right hepatic margin measures 18.7 cm in craniocaudal dimension at the midclavicular line, enl arged Gallbladder and biliary tree: Previous c holecystectomy. The common bile duct is dilated, measuring 10 mm. T here is mild central intrahepatic biliary ductal prominence w ithout gross dilatation. No radiopaque choledocholithiasis. Spleen: No significant findings. Adrenal Glands: No significant findings. Kidneys and ureters: No significant find ings. Stomach and Duodenum: Previous gastric b ypass. There is a lumen opposing metal stent in the proximal sto mach adjacent to surgical suture line. The stomach is decompressed . Pancreas: A pancreatic duct stent appear s appropriate position at the pancreatic head and duodenum. No pancrea tic ductal dilatation is noted. The pancreatic parenchyma enhance s normally. There is no organized retroperitoneal fluid collecti on to suggest pseudocyst or necrosis. Minimal intra-abdominal fat li mits evaluation of peripancreatic fat stranding. Bowel: A limited opposing metal stents i s present in the subhepatic right upper quadrant, possibly involving small bowel. Left colonic diverticulosis. No bowel obstruction. No pneumatosis intestinalis. Appendix: Nonvisualized Bladder: Obscured by streak artifact fro m bilateral total hip orthoplasty hardware. Major vascular structures: Atherosclerot ic calcifications Reproductive organs: Previous hysterecto my Other: Diffuse subcutaneous edema. Trace ascites. No free intraperitoneal air. No organize d fluid collection in the abdomen or pelvis to suggest abscess. Post surgical changes of epigastric vent ral hernia repair. Skeleton: No acute bony abnormality. Wilson ateral total hip arthroplasty hardware is partially visualized. IMPRESSION: Limited examination, as described. A pancreatic duct stent is appropriately positioned. There is no retroperitoneal organized fluid collecti on. Lack of adjacent retroperitoneal fat limits evaluation fo r inflammatory change. Please correlate with serology if pancreatitis is suspected. Mild dilatation of the common bile duct may relate to reservoir effect after cholecystectomy. No radiopa que choledocholithiasis is evident. Please correlate with LFTs. Other post procedure/postsurgical change s, as described. Hepatomegaly. Colonic diverticulosis. Trace ascites, nonspecific. Signed: Domingo Burgess MD Report Verified Date/Time:09/29/2019 00:35:24 Procedure Note Interface, External Ris In - 09/29/2019 12:37 AM VALVE INSERTER FINAL REPORT CLINICAL HISTORY: Epigastric pain, histo ry of gastric bypass and pancreatitis, recent endoscopy FINDINGS: Multiple axial images of the abdomen and pelvis were performed after the uncomplicated administration of IV c ontrast. Oral contrast was not given. This exam was performed according to our departmental dose-optimization program, which include s automated exposure control, adjustment of the mA and/or kV according to patient size and/or use of the iterative reconstruction techniqu e. The examination is limited by lack of en teric contrast in the small bowel and minimal intra-abdominal fat. P lease note there is high density enteric contrast in the colon, l ikely from recent ERCP. Comparison:None. Lower chest: Curvilinear atelectasis andrei laurel scarring in the left lower lung. No pleural effusion or pneum othorax. Visualized cardiac contours normal. Liver: The right hepatic margin measures 18.7 cm in craniocaudal dimension at the midclavicular line, enl arged Gallbladder and biliary tree: Previous c holecystectomy. The common bile duct is dilated, measuring 10 mm. T here is mild central intrahepatic biliary ductal prominence w ithout gross dilatation. No radiopaque choledocholithiasis. Spleen: No significant findings. Adrenal Glands: No significant findings. Kidneys and ureters: No significant find ings. Stomach and Duodenum: Previous gastric b ypass. There is a lumen opposing metal stent in the proximal sto mach adjacent to surgical suture line. The stomach is decompressed . Pancreas: A pancreatic duct stent appear s appropriate position at the pancreatic head and duodenum. No pancrea tic ductal dilatation is noted. The pancreatic parenchyma enhance s normally. There is no organized retroperitoneal fluid collecti on to suggest pseudocyst or necrosis. Minimal intra-abdominal fat li mits evaluation of peripancreatic fat stranding. Bowel: A limited opposing metal stents i s present in the subhepatic right upper quadrant, possibly involving small bowel. Left colonic diverticulosis. No bowel obstruction. No pneumatosis intestinalis. Appendix: Nonvisualized Bladder: Obscured by streak artifact fro m bilateral total hip orthoplasty hardware. Major vascular structures: Atherosclerot ic calcifications Reproductive organs: Previous hysterecto my Other: Diffuse subcutaneous edema. Trace ascites. No free intraperitoneal air. No organize d fluid collection in the abdomen or pelvis to suggest abscess. Post surgical changes of epigastric vent ral hernia repair. Skeleton: No acute bony abnormality. Wilson ateral total hip arthroplasty hardware is partially visualized. IMPRESSION: Limited examination, as described. A pancreatic duct stent is appropriately positioned. There is no retroperitoneal organized fluid collecti on. Lack of adjacent retroperitoneal fat limits evaluation fo r inflammatory change. Please correlate with serology if pancreatitis is suspected. Mild dilatation of the common bile duct may relate to reservoir effect after cholecystectomy. No radiopa que choledocholithiasis is evident. Please correlate with LFTs. Other post procedure/postsurgical change s, as described. Hepatomegaly. Colonic diverticulosis. Trace ascites, nonspecific. Signed: Domingo Burgess MD Report Verified Date/Time: 09/29/2019 0 0:35:24 Performing Organization Address City/[facility] Centercode Phone Number [facility] Lipase (09/28/2019 9:48 PM VALVE INSERTER)Only the most recent of2 resultswithin the time period is included. Lipase 6 (L) 8 - 78 U/L [facility] Specimen Blood Performing Organization Address [facility] Centercode Phone Number [address] [address] [place] Hepatic function panel (09/28/2019 9:48 PM VALVE INSERTER) Protein, Total 6.0 6.0 - 8.3 gm/dL [facility] Albumin 3.4 (L) 3.5 - 5.0 g/dL [facility] Total Bilirubin 0.6 0.2 - 1.2 mg/dL [facility] Bilirubin, Direct 0.3 0.1 - 0.5 mg/dL [facility] Alkaline Phosphatase 163 (H) 40 - 150 U/L [facility] AST 52 (H) 5 - 34 U/L [facility] ALT 39 6 - 55 U/L [facility] Specimen Blood Performing Organization Address [facility] Centercode Phone Number [facility] [address] [place] [address] [place] XR chest 1 view portable / bedside (09/28/2019 7:52 PM VALVE INSERTER) Specimen Narrative Performed At FINAL REPORT RIS History: Shortness of breath. Comparison: None. Findings: A single view of the chest is submitted. The cardiac silhouette is within normal limits for size. There is atherosclerotic calcification of the aor ta. There is mild central vascular prominenc e and perihilar interstitial opacification, along with cephalization of the pulmonary vasculature, and appearance suggestive of mild pulmon ozzy interstitial edema. There is no focal consolidation, pneumot horax, large pleural effusion or acute bony abnormality. Degenerative changes are present in the spine and both shoulders. Postsurgical changes are noted at the ep igastrium. Signed: Domingo Burgess MD Report Verified Date/Time:09/28/2019 21:04:08 Procedure Note Interface, External Ris In - 09/28/2019 9:06 PM VALVE INSERTER FINAL REPORT History: Shortness of breath. Comparison: None. Findings: A single view of the chest is submitted. The cardiac silhouette is within normal limits for size. There is atherosclerotic calcification of the aor ta. There is mild central vascular prominenc e and perihilar interstitial opacification, along with cephalization of the pulmonary vasculature, and appearance suggestive of mild pulmon ozzy interstitial edema. There is no focal consolidation, pneumot horax, large pleural effusion or acute bony abnormality. Degenerative changes are present in the spine and both shoulders. Postsurgical changes are noted at the ep igastrium. Signed: Domingo Burgess MD Report Verified Date/Time: 09/28/2019 2 1:04:08 Performing Organization Address City/State/Zipcode Phone Number [facility] REPORT OF PROCEDURE - ENDOSCOPY URL (09/27/2019 11:32 AM CDT) Narrative Performed At This result has an attachment that is no t available. [place] ERCP (09/27/2019 11:15 AM CDT) Specimen Narrative Performed At FINAL REPORT GE [facility] A fluoroscopic unit was utilized for a p rocedure performed in the operating room. No interpretation was re quested. Please refer to the operative report regarding findings. Ple ase refer to PACS for patient radiation dose information. Signed: Clarence Nj MD Report Verified Date/Time:09/27/2019 12:08:57 Reading Location: [facility] B1 C013Y CT Body R eading Room Procedure Note Interface, External Ris In - 09/27/2019 12:11 PM CDT FINAL REPORT A fluoroscopic unit was utilized for a p rocedure performed in the operating room. No interpretation was re quested. Please refer to the operative report regarding findings. Ple ase refer to PACS for patient radiation dose information. Signed: Clarence Nj MD Report Verified Date/Time: 09/27/2019 1 2:08:57 Reading Location: [facility] B1 C013Y CT Body R eading Room Performing Organization Address [facility] CenterIdea2 Phone Number [facility] REPORT OF PROCEDURE - ENDOSCOPY URL (09/25/2019 9:49 AM CDT) Narrative Performed At This result has an attachment that is no t available. ECG 12 lead (09/25/2019 12:28 AM CDT) Specimen Narrative Performed At Ventricular Rate 56 BPM GE MUSE Atrial Rate 56 BPM P-R Interval 142 ms QRS Duration 116 ms Q-T Interval 470 ms QTC Calculation(Bazett) 453 ms P [place] 79 degrees R [place] 79 degrees T [place] 32 degrees Sinus bradycardia Right bundle branch block Abnormal ECG No previous ECGs available Confirmed by MD Watson Roberto ([id number]) on 08/28 11:17:43 AM Procedure Note Interface, External Ris In - 09/25/2019 11:17 AM CDT Ventricular Rate 56 BPM Atrial Rate 56 BPM P-R Interval 142 ms QRS Duration 116 ms Q-T Interval 470 ms QTC Calculation(Bazett) 453 ms P [place] 79 degrees R [place] 79 degrees T [place] 32 degrees Sinus bradycardia Right bundle branch block Abnormal ECG No previous ECGs available Confirmed by MD Watson Roberto ([id number]) on 09/25/2019 11:17:43 AM Performing Organization Address City/[facility]/[place] Phone Number [facility] MUSE Prothrombin time/INR (09/24/2019 4:22 PM CDT) Protime 15.4 (H) 11.9 - 14.2 seconds [facility] INR 1.3 <=5.9 [facility] Specimen Blood Narrative Performed At Effective 04/23/2019: PT Reference Range [facility] Change New: 11.9-14.2Previous: 11.7-14.7 RECOMMENDED COUMADIN/WARFARIN INR THERAPY RANGES STANDARD DOSE: 2.0-3.0Includes: PROPHYLAXIS for venous thrombosis, systemic embolization; TREATMENT for venous thrombosis and/or pulmonary embolus. HIGH RISK: Target INR is 2.5-3.5 for patients wiht mechanical heart valves. Performing Organization Address City/State/Zipcode Phone Number [facility] [address] [place] [address] CENTER Comprehensive metabolic panel (09/24/2019 4:22 PM CDT) Protein, Total 6.9Comment: Specimen 6.0 - 8.3 gm/dL [facility] slightly hemolyzed [facility] Albumin 3.8Comment: Specimen 3.5 - 5.0 g/dL [facility] slightly hemolyzed [facility] Alkaline Phosphatase 68 40 - 150 U/L [facility] ER Total Bilirubin 0.5Comment: Specimen 0.2 - 1.2 mg/dL [facility] slightly hemolyzed [facility] Sodium 142 136 - 145 meq/L [facility] ALTH [facility] MEDICAL [facility] ER Potassium 4.3Comment: Specimen 3.5 - 5.1 meq/L [facility] slightly hemolyzed [facility] Chloride 107 98 - 107 meq/L [facility] ER CO2 29 22 - 29 meq/L [facility] BUN 11 7 - 21 mg/dL [facility] ALTH [facility] MEDICAL [facility] ER Creatinine 0.72Comment: Specimen 0.57 - 1.25 mg/dL [facility] slightly hemolyzed [facility] Glucose 77 70 - 105 mg/dL [facility]TH [facility] ER Calcium 8.2 (L) 8.4 - 10.2 mg/dL [facility] AST 31Comment: Specimen 5 - 34 U/L [facility] slightly hemolyzed [facility] ALT 17Comment: Specimen 6 - 55 U/L [facility] slightly hemolyzed [facility] EGFR 82Comment: ESTIMATED GFR mL/min/1.73 sq m [facility] IS NOT ACCURATE [facility] CREATININE CLEARANCE IN PREDICTING GLOMERULAR FILTRATION RATE. ESTIMATED GFR IS NOT APPLICABLE FOR DIALYSIS PATIENTS. Specimen Blood Performing Organization Address City/State/Zipcode Phone Number [facility] [address] [place] [address] CENTER [place] cradle slide maker in or 30 minute increments (09/24/2019 1:55 PM CDT) Specimen Narrative Performed At FINAL REPORT GE [facility] A fluoroscopic unit was utilized for a p rocedure performed in the operating room. No interpretation was re quested. Please refer to the operative report regarding findings. Ple ase refer to PACS for patient radiation dose information. Signed: Bethany Scruggs MD Report Verified Date/Time:09/25/2019 07:30:33 Reading Location: [facility] Room Procedure Note Interface, External Ris In - 09/25/2019 7:32 AM CDT FINAL REPORT A fluoroscopic unit was utilized for a p rocedure performed in the operating room. No interpretation was re quested. Please refer to the operative report regarding findings. Ple ase refer to PACS for patient radiation dose information. Signed: Bethany Scruggs MD Report Verified Date/Time: 09/25/2019 0 7:30:33 Reading Location: [facility] Room Performing Organization Address City/State/Zipcode Phone Number [facility] after 05/27/2019 Insurance Payer Benefit Plan / Group Subscriber ID Type Phone A ddress MEDICARE MEDICARE A B xxxxxxxxxxx Medicare AETNA - MGD CARE AETNA INDEMNITY NON CONTR xxxxxxxxx Comm Advance Directives For more information, please contact:[address] [phone] Code Status Date Activated Date Inactivated Comments Full Code 09/24/2019 3:28 PM 09/30/2019 6:23 PM This code status was determined by: Patient Full Code 03/06/2017 8:10 PM 03/07/2017 9:02 PM This code status was determined by: Patient Full Code 01/24/2017 2:35 AM 02/01/2017 3:46 PM This code status was determined by: Patient
--- OUTSIDE RECORDS SUMMARY | 2020-05-27 23:16 | XMS REPORT | Continuity of Care Document ---
:1960 Author Organization [employer] Care Team Providers Name Role Phone MTX Connect Unavailable Un available Problems Problem Status Onset Classification Date Comments Sourc e Date Reported LT HIP OA Active [facility] 019 [place] Clostridium difficile Resolved Problem 04/12/2019 Ortho diarrhea (disorder) 016 and Spine Anemia (disorder) Active Problem 04/12/2019 M H Ortho and Spine Asthma (disorder) Active Problem 04/12/2019 M H Ortho and Spine Bradycardia (disorder) Active Problem 04/12/2019 Ortho and Spine Cramp (finding) Active Problem 04/12/2019 MH Ortho and Spine Diverticulitis Active Problem 04/12/2019 O rtho (disorder) and Spine Hiatal hernia Active Problem 04/12/2019 MH Or tho (disorder) and Spine Hyperparathyroidism Active Problem 04/12/2019 MH Ortho (disorder) and Spine Hypertensive disorder, Active Problem 04/12/2019 Ortho systemic arterial an d Spine (disorder) Osteoarthritis of hip Active Problem 04/12/2019 Ortho (disorder) and Spine Medications Medication Details Route Status Patient Ordering Order Source Instructions Provider Date Magnesium Oxide 400 mg = 1 tab, Active PO, Daily, 0 2019 Ortho Refill(s) and Spine 0.4 ML Enoxaparin 40 mg, SUB-Q, Active sodium 100 MG/ML Daily, please 2019 O rtho Prefilled Syringe take only for and [Lovenox] 14 days [address] per Spine Dr[address] Larsen, X 14 day, # 1 box, 0 Refill(s), Pharmacy: [facility]/pharmacy #[id number], please give enough for 14 days Doxycycline 100 mg, PO, Active Monohydrate 100 [id number], X 7 2019 Ort ho MG Oral Capsule day, # 14 tab, a nd 0 Refill(s), Spine Pharmacy: [facility]/pharmacy #[id number] Doxycycline Notes: (Same Inactive as: Vibramycin) 2019 Ortho No and milk/antacids/i Spine kaitlin. Albuterol 0.833 Notes: (Same No Longer H MG/ML / as: Duoneb) Active 2019 Ortho Ipratropium and Joshua 0.167 Spine MG/ML Inhalant Solution [DuoNeb] Zofran Notes: (Same No Longer as: Zofran ODT) Active 2019 Ortho and Spine Magnesium Oxide Notes: (Same No Longer H as: Mag-Ox 400) Active 2019 Ortho Magnesium oxide and [id number] Spine elemental magnesium Dose=____mg magnesium oxide (___mg elemental magnesium) Enoxaparin Notes: (Same Inactive as: Lovenox) 2019 Ortho and Spine calcium gluconate Notes: WASTE: Inactive + Sodium Chloride F/P - Sink; E - 2018 Ortho 0.9% IV 100 mL Municipal Trash a nd Bin Spine Protonix Notes: Tablet No Longer should not be Active 2019 Ortho chewed or and crushed. (Same Spine as: Protonix) Omeprazole 40 mg, Route: No Longer PO, Drug form: Active 2019 Ortho DRC, Daily, and Dosing Weight Spine 53.636, kg, Start date: 04/08/19 9:00:00 CDT, Duration: 30 day, Stop date: 05/07/19 9:00:00 CDT Lovenox Notes: (Same No Longer as: Lovenox) Active 2019 Ortho and Spine Docusate Sodium Notes: (Same as No Longer 50 MG / Senokot-S) Active 2019 Ortho sennosides, INTERMEDIATE Equiv. to and 8.6 MG Oral Sara-Colace. Spine Tablet Amlodipine Notes: (Same No Longer as: Norvasc) Active 2019 Ortho and Spine Magnesium Sulfate Notes: WASTE: Inactive F/P - Sink; E - 2018 Ortho Municipal Trash and Bin Spine Calcium Gluconate Notes: WASTE: Inactive F/P - Sink; E - 2018 Ortho Municipal Trash and Bin Spine Dilaudid Notes: (Same No Longer as: Dilaudid) Active 2019 Ortho and Spine Vancomycin 2001 mg: No Longer infuse over 2.5 Active 2018 Ortho hours For and adult patients Spine only: Round to nearest 250 mg per Medical Staff approval calcium-vitamin D calcium-vitamin No Longer 03/26 500 mg-1000 intl D 500 mg-1000 Active 2018 O rtho units Gummy intl units and Gummy, 1 chew Spine tab, Drug form: MISC, Route: CHEW, BID, 04/07/19 17:00:00 CDT, Duration: 30 day, Stop date: 05/07/19 9:00:00 CDT Miralax Notes: Dissolve No Longer in 8 oz of Active 2018 Ortho water or juice. and (Same as: Spine Miralax) Calcium Carbonate 4 tab, Route: Inactive 1250 MG / PO, Drug Form: 2018 Ortho Cholecalciferol TAB, Dosing and 200 UNT Oral Weight 53.636, Spin e Tablet kg, BID, Start date: 04/07/19 17:00:00 CDT, Duration: 30 day, Stop date: 05/07/19 9:00:00 CDT Calcitriol Notes: (Same No Longer As: Rocaltrol) Active 2018 Ortho and Spine Sucralfate Notes: May No Longer interfere Active 2018 Ortho w/enteral feeds and - Take 1 hr Spine before or 2 hr after antacids, dairy pdt, meals & minerals - On empty stomach. For patients unable to swallow tablet, dissolve in 10mL - 30mL of water or juice and stir before giving. (Same As: Carafate) 200 ACTUAT Notes: (Same No Longer Albuterol 0.09 as: Proventil) Active 2018 Or tho MG/ACTUAT Metered WASTE: Aerosol and Dose Inhaler - Return to Spine [ProAir HFA] Pharmacy Hydromorphone Notes: (Same No Longer as: Dilaudid) Active 2018 Ortho conc = 0.5 and mg/ml Spine Hydromorphone HUB LEAD Dose: ;Delay: ;Basal: Naloxone Notes: Same as No Longer Narcan Active 2018 Ortho and Spine Naloxone Notes: Same as No Longer Narcan Active 2018 Ortho and Spine Saline Flush 0.9% Notes: Same as: No Longer 05/1 3/ MH BD Posiflush Active 2019 Ortho Sterile and Spine 1/2NS + KCL Notes: PREMIX No Longer 20mEq/L 1000ml IV - Do Not Active 2019 Ortho (Premix) 1,000 mL Alter WASTE: and F/P - Sink; E - Spine Municipal Trash Bin Ondansetron Notes: (Same No Longer as: Zofran) Active 2019 Ortho MEDICATION and WASTE Spine Product Size: 4 mg Product Wasted: ___ mg Dulcolax Laxative Notes: (Same No Longer As: Dulcolax, Active 2019 Ortho Correctol) (Do and Not Crush) "Do Spine Not Crush" Diphenhydramine Notes: (Same No Longer H as: Benadryl) Active 2019 Ortho and Spine Aluminum Notes: No Longer Hydroxide 40 (aluminum Active 2019 Ortho MG/ML / Magnesium hydroxide-magne and Hydroxide 40 sium hyd- Spine MG/ML / simethicone Simethicone 4 [phone]/5m MG/ML Oral l 30 ml ud RONEY) Suspension Promethazine Notes: Do not No Longer give IV push. Active 2019 Ortho (Same as: and Phenergan) Spine Ondansetron Notes: (Same Inactive as: Zofran) 2019 Ortho MEDICATION and WASTE Spine Product Size: 4 mg Product Wasted: ___ mg Labetalol 10 mg, 2 mL, Inactive Route: IVP, 2019 Ortho Drug form: INJ, and Q5Min, Dosing Spine Weight 53.636, kg, PRN Elevated BP, Start date: 04/07/19 9:49:00 CDT, Duration: 5 doses or times, Stop date: 04/07/19 17:00:00 CDT Hydralazine Notes: (Same Inactive as: Apresoline) 2019 Ortho Push over 5 and minutes Spine Hydromorphone Notes: Same as Inactive Dilaudid 2019 Ortho and Spine ondansetron Route: IV, Drug Inactive (ANES) form: INJ, 2019 Ortho ONCE, Stop and date: 04/07/19 Spine 9:45:00 CDT phenylephrine Route: IV, Drug Inactive M H (ANES) form: INJ, 2018 Ortho ONCE, Stop and date: 04/07/19 Spine 9:06:00 CDT hydromorphone Route: IV, Drug Inactive 04/07/ M H (ANES) form: INJ, 2018 Ortho ONCE, Stop and date: 04/07/19 Spine 8:20:00 CDT fentaNYL (ANES) Route: IV, Drug Inactive form: INJ, 2018 Ortho ONCE, Stop and date: 04/07/19 Spine 8:15:00 CDT midazolam (ANES) Route: IV, Drug Inactive form: SOLN, 2019 Ortho ONCE, Stop and date: 04/07/19 Spine 8:15:00 CDT lidocaine (ANES) Route: IV, Drug Inactive form: INJ, 2018 Ortho ONCE, Stop and date: 04/07/19 Spine 8:15:00 CDT glycopyrrolate Route: IV, Drug Inactive MH (ANES) form: INJ, 2018 Ortho ONCE, Stop and date: 04/07/19 Spine 8:15:00 CDT dexamethasone Route: IV, Drug Inactive M H (ANES) form: INJ, 2018 Ortho ONCE, Stop and date: 04/07/19 Spine 8:15:00 CDT ePHEDrine (ANES) Route: IV, Drug Inactive form: INJ, 2018 Ortho ONCE, Stop and date: 04/07/19 Spine 8:15:00 CDT rocuronium (ANES) Route: IV, Drug Inactive 04/07 form: INJ, 2018 Ortho ONCE, Stop and date: 04/07/19 Spine 8:15:00 CDT succinylcholine Route: IV, Drug Inactive MH (ANES) form: INJ, 2018 Ortho ONCE, Stop and date: 04/07/19 Spine 8:15:00 CDT propofol (ANES) Route: IV, Drug Inactive form: INJ, 2018 Ortho ONCE, Stop and date: 04/07/19 Spine 8:15:00 CDT Lactated Ringers Route: IV, Inactive Injection IV Total Volume: 2019 Ortho (ANES) 1000 mL 1,000, Start and date: 04/07/19 Spine 7:10:00 CDT, Stop date: 04/07/19 8:10:00 CDT vancomycin (ANES) Route: IV, Drug Inactive 04/07 1.5 gm form: INJ, 2019 Ortho Start date: and 04/07/19 Spine 6:38:00 CDT, Stop date: 04/07/19 7:38:00 CDT Vancomycin 750 mg, Route: Inactive IV, ONCE, 2018 Ortho Dosing Weight and 53.636, kg, Spine Start date: 04/07/19 6:36:00 CDT, Stop date: 04/07/19 6:36:00 CDT, ABX Indication: Surgical Prophylaxis vancomycin + Notes: TIME No Longer Sodium Chloride CRITICAL Active 2018 Ortho 0.9% IV 250 mL MEDICATION and (Same As: Spine Vancocin) For adult patients only: Round to nearest 250 mg per Medical Staff approval polymyxin B Notes: (Same No Longer sulfate + Sodium as: Polymyxin B Active 2018 Ortho Chloride 0.9% IV Sulfate) and 250 mL Spine sucralfate 1 g 1 gm = 1 tab, Active oral tablet PO, TID, # 120 2019 Ortho tab, 1 and Refill(s) Spine Home Medication MULTIPLE Active VITAMIN, B12, 2019 Ortho IRON W/VITAMIN and C, VITAMIN A Spine PICKLE JUICE, Refill(s) 0 Naproxen sodium 220 mg = 1 tab, No Longer 220 MG Oral PO, PRN, PRN Active 2018 Ortho Tablet [Aleve] Pain, # 30 tab, a nd 0 Refill(s) Spine 200 ACTUAT 1 puff, Active Albuterol 0.09 INHALER, Q6H, 2019 Ort ho MG/ACTUAT Metered PRN As needed and Dose Inhaler for shortness Spine [ProAir HFA] of breath, # 1 ea, 3 Refill(s) omeprazole 40 mg 40 mg = 1 cap, Active oral delayed PO, Daily, # 30 2019 Ort ho release capsule cap, 0 and Refill(s) Spine amLODIPine 5 mg 5 mg = 1 tab, Active oral tablet PO, Daily, # 30 2019 Orth o tab, 0 and Refill(s) Spine calcitriol 0.5 0.5 microgram = Active M H mcg oral capsule 1 cap, PO, 2018 Orth o Daily, PT DOSE and NOT WANT TO Spine STOP TAKING PRIOR TO SURGERY D/T SEVERE MUSCLE CRAMPS, # 30 cap, 0 Refill(s) Calcium Carbonate 4 tab, PO, BID, Active 1250 MG / PT DOES NOT 2019 Ortho Cholecalciferol WANT TO STOP and 200 UNT Oral TAKING PRIOR TO Spi ne Tablet SURGERY D/T SEVERE MUSCLE CRAMPS, 0 Refill(s) Allergies, Adverse Reactions, Alerts Substance Category Reaction Severity Reaction Status Date Comments S ource type Reported sulfa drugs Assertion RASH/ITCHING Drug Active MH allergy Ortho and Spine ciprofloxacin Assertion BONE PAIN Drug Active MH allergy Ortho and Spine codeine Assertion RASH/ITCHING Drug Active M H allergy Ortho and Spine penicillin Assertion CLOSED Drug Active MH AIRWAY, allergy Ortho RASH/ITCHING and Spine morphine Assertion N/V/D - Drug Active MH ITCHING allergy Ortho and Spine caffeine Assertion TACHYCARDIA Drug Active M H allergy Ortho and Spine fentanyl Assertion PANIC Drug Active FENTANYL MH topical<sup>1 allergy PATCH Or tho </sup> ONLY and Spine Keflex Assertion RASH/ITCHING Drug Active M H allergy Ortho and Spine Stadol Assertion ITCHING, Drug Active MH TONGUE & allergy Ortho THROAT and SWELLING Spine Neurontin Assertion SWELLING/BRIDGETT Drug Active MH H allergy Ortho and Spine Talwin Assertion RASH/ITCHING Drug Active M H allergy Ortho and Spine Ultram Assertion STOMACH Drug Active MH PAIN/ITCHING allergy Ort ho and Spine Tylenol Assertion LIVER PAIN Drug Active MH allergy Ortho and Spine meloxicam Assertion ASTHMA Drug Active MH allergy Ortho and Spine oxyCODONE Assertion RASH/ITCHING Drug Active MH allergy Ortho and Spine HYDROcodone Assertion HIVES/ITCHIN Drug Active MH G allergy Ortho and Spine Immunizations Immunization Date Given Site Status Last Updated Comments Michelle rce Hx tetanus toxoid 03/12/2019 completed Dipesh Admin Note: MH Ortho vaccine<sup>1</zaldivar REC'D 2014 a nd Spine p> PER PT Hx pneumococcal 03/12/2019 completed Dipesh Admin Note: M H Ortho vaccine<sup>2</zaldivar REC'D 7 and Spine p> PER PT; ALSO REC'D PREVNAR 13 Results Order Name Results Value Reference Date Interpretation Comments Michelle rce Range URINE AND UA WBC 0-2 /HPF None Seen 04/10 STOOL /HPF Ortho and Spine URINE AND UA Sq Epi Occasional Few /LPF 04/10 STOOL /LPF Ortho and Spine URINE AND UA Bacteria Occasional None Seen 04/10 STOOL /HPF /HPF Ortho and Spine URINE AND UA RBC 0-2 /HPF 0 - 2 04/10 STOOL Ortho and Spine URINE AND UA Bili Negative Negative 04/10 STOOL *NA* Ortho (04/10/19 3:06 AM) and Spine URINE AND UA Blood Negative Negative 04/10 STOOL (04/10/19 3:06 AM) Ortho and Spine URINE AND UA 1.0 0.1 - 1.0 04/10 STOOL Urobilinogen Ortho and Spine URINE AND UA Nitrite Negative Negative 04/10 STOOL (04/10/19 3:06 AM) Ortho and Spine URINE AND UA Leuk Est Negative Negative 04/10 STOOL (04/10/19 3:06 AM) Ortho and Spine URINE AND UA Spec Grav 1.015 <=1.030 04/10 STOOL Ortho and Spine URINE AND UA pH 6.0 5.0 - 8.0 04/10 STOOL Ortho and Spine URINE AND UA Protein Negative Negative 04/10 STOOL mg/dL mg/dL Ortho and Spine URINE AND UA Glucose Negative Negative 04/10 STOOL mg/dL mg/dL Ortho and Spine URINE AND UA Ketones Negative Negative 04/10 STOOL mg/dL mg/dL Ortho and Spine URINE AND UA Color Yellow Yellow 04/10 STOOL *NA* Ortho (04/10/19 3:06 AM) and Spine URINE AND UA Turbidity Clear Clear 04/10 STOOL (04/10/19 3:06 AM) Ortho and Spine HEMATOLOGY Neutrophils # 3.3 1.5 - 8.1 04/10 Ortho and Spine HEMATOLOGY Basophils 1.0 0.0 - 1.0 04/10 Ortho and Spine HEMATOLOGY Lymphocytes 19.2 20.0 - 04/10 MH 40.0 Ortho and Spine HEMATOLOGY Eosinophils 3.1 0.0 - 4.0 04/10 Ortho and Spine HEMATOLOGY Lymphocytes # 0.9 1.0 - 5.5 04/10 Ortho and Spine HEMATOLOGY Monocytes # 0.5 0.0 - 0.8 04/10 Ortho and Spine HEMATOLOGY Eosinophils # 0.2 0.0 - 0.5 04/10 Ortho and Spine HEMATOLOGY Monocytes 10.6 2.0 - 12.0 04/10 Ortho and Spine HEMATOLOGY Segs 66.1 45.0 - 04/10 MH 75.0 /2019 Ortho and Spine HEMATOLOGY MPV 9.1 7.4 - 10.4 04/10 Ortho and Spine HEMATOLOGY RBC 3.37 4.20 - 04/10 MH 5.40 /2019 Ortho and Spine HEMATOLOGY Hgb 9.6 12.0 - 04/10 MH 16.0 /2019 Ortho and Spine HEMATOLOGY Hct 28.9 36.0 - 04/10 MH 48.0 /2019 Ortho and Spine HEMATOLOGY MCHC 33.1 32.0 - 04/10 MH 36.0 /2019 Ortho and Spine HEMATOLOGY MCV 85.8 80.0 - 04/10 MH 98.0 /2019 Ortho and Spine HEMATOLOGY MCH 28.4 27.0 - 04/10 MH 31.0 /2019 Ortho and Spine HEMATOLOGY Platelet 176 133 - 450 04/10 Ortho and Spine HEMATOLOGY RDW 14.6 11.5 - 04/10 MH 14.5 /2019 Ortho and Spine HEMATOLOGY WBC 4.9 3.7 - 10.4 04/10 Ortho and Spine CHEM PANEL POC 0.8 0.5 - 1.4 04/09 Ortho and Spine CHEM PANEL POC Glucose 89 70 - 99 04/09 Ortho and Spine CHEM PANEL POC Ion Ca 1.06 1.05 - 04/09 MH 1.25 /2019 Ortho and Spine CHEM PANEL POC BUN 6 7 - 22 04/09 Ortho and Spine CHEM PANEL POC Carbon 30 24 - 32 04/09 Ortho and Spine CHEM PANEL POC Chloride 95 95 - 109 04/09 Ortho and Spine CHEM PANEL POC Potassium 4.1 3.5 - 5.1 04/09 Ortho and Spine CHEM PANEL POC Sodium 136 135 - 145 04/09 Ortho and Spine CHEM PANEL eGFR 80 04/09 [facility] Comment: The Ortho eGFR is and calculated Spine using the CKD-EPI formula. In most young, healthy individuals the eGFR will be >90 mL/min/1.73m2 . The eGFR declines with age. An eGFR of 60-89 may be normal in some populations, particularly the elderly, for whom the CKD-EPI formula has not been extensively validated. Use of the eGFR is not recommended in the following populations:< br/>
Layla viduals with unstable creatinine concentration s, including patients and those with serious co-morbid conditions.<b r/>
Patie nts with extremes in muscle mass or diet.

The data above are obtained from the National Kidney Disease Education Program (NKDEP) which additionally recommends that when the eGFR is used in patients with extremes of body mass index for purposes of drug dosing, the eGFR should be multiplied by the estimated BMI. CHEM PANEL POC AGAP 16.0 10.0 - 04/09 MH 20.0 Ortho and Spine CHEM PANEL POC 11.2 12.0 - 04/09 Hemoglobin 16.0 Ortho and Spine CHEM PANEL POC 33.0 36.0 - 04/09 Hematocrit 48.0 /2018 Ortho and Spine CHEM PANEL Calcium Lvl 8.0 8.5 - 10.5 04/09 Ortho and Spine CHEM PANEL CO2 31 24 - 32 04/09 Ortho and Spine CHEM PANEL Chloride Lvl 101 95 - 109 04/09 Ortho and Spine CHEM PANEL Sodium Lvl 137 135 - 145 04/09 Ortho and Spine CHEM PANEL Creatinine 0.75 0.50 - 04/09 MH Lvl 1.40 /2018 Ortho and Spine CHEM PANEL Potassium Lvl 4.4 3.5 - 5.1 04/09 Ortho and Spine CHEM PANEL Glucose Lvl 95 70 - 99 04/09 Ortho and Spine CHEM PANEL BUN 8 7 - 22 04/09 Ortho and Spine CHEM PANEL eGFR 87 04/09 Result Comment: The Ortho eGFR is and calculated Spine using the CKD-EPI formula. In most young, healthy individuals the eGFR will be >90 mL/min/1.73m2 . The eGFR declines with age. An eGFR of 60-89 may be normal in some populations, particularly the elderly, for whom the CKD-EPI formula has not been extensively validated. Use of the eGFR is not recommended in the following populations:< br/>
Layla viduals with unstable creatinine concentration s, including patients and those with serious co-morbid conditions.<b r/>
Patie nts with extremes in muscle mass or diet.

The data above are obtained from the National Kidney Disease Education Program (NKDEP) which additionally recommends that when the eGFR is used in patients with extremes of body mass index for purposes of drug dosing, the eGFR should be multiplied by the estimated BMI. CHEM PANEL AGAP 9.4 10.0 - 04/09 MH 20.0 /2019 Ortho and Spine CHEM PANEL Magnesium Lvl 1.5 1.8 - 2.4 04/09 Ortho and Spine HEMATOLOGY Segs 71.3 45.0 - 04/09 MH 75.0 /2019 Ortho and Spine HEMATOLOGY Lymphocytes 14.6 20.0 - 04/09 MH 40.0 /2019 Ortho and Spine HEMATOLOGY Basophils 0.7 0.0 - 1.0 04/09 Ortho and Spine HEMATOLOGY Neutrophils # 4.8 1.5 - 8.1 04/09 Ortho and Spine HEMATOLOGY Monocytes 9.6 2.0 - 12.0 04/09 Ortho and Spine HEMATOLOGY Eosinophils 3.8 0.0 - 4.0 04/09 Ortho and Spine HEMATOLOGY Lymphocytes # 1.0 1.0 - 5.5 04/09 Ortho and Spine HEMATOLOGY Eosinophils # 0.3 0.0 - 0.5 04/09 Ortho and Spine HEMATOLOGY Monocytes # 0.6 0.0 - 0.8 04/09 Ortho and Spine HEMATOLOGY MPV 8.7 7.4 - 10.4 04/09 Ortho and Spine HEMATOLOGY Platelet 186 133 - 450 04/09 Ortho and Spine HEMATOLOGY RDW 14.4 11.5 - 04/09 MH 14.5 /2018 Ortho and Spine HEMATOLOGY MCHC 33.2 32.0 - 04/09 MH 36.0 /2019 Ortho and Spine HEMATOLOGY MCH 28.5 27.0 - 04/09 MH 31.0 /2019 Ortho and Spine HEMATOLOGY RBC 3.76 4.20 - 04/09 MH 5.40 /2019 Ortho and Spine HEMATOLOGY WBC 6.8 3.7 - 10.4 04/09 /2018 Ortho and Spine HEMATOLOGY Hgb 10.7 12.0 - 05 MH 16.0 /2019 Ortho and Spine HEMATOLOGY MCV 86.1 80.0 - 05 MH 98.0 2019 Ortho and Spine HEMATOLOGY Hct 32.4 36.0 - 04/09 MH 48.0 Ortho and Spine ELECTROLYTE POC Carbon 29 24 - 32 / MH S Dioxide Ortho and Spine ELECTROLYTE POC Chloride 100 95 - 109 05 MH S Ortho and Spine ELECTROLYTE POC BUN 7 7 - 22 05 MH S /2018 Ortho and Spine ELECTROLYTE POC Potassium 3.9 3.5 - 5.1 05 MH S /2018 Ortho and Spine ELECTROLYTE POC Ion Ca 1.04 1.05 - 05 MH S 1.25 Ortho and Spine ELECTROLYTE POC Glucose 93 70 - 99 04/08 MH S Ortho and Spine ELECTROLYTE POC 0.6 0.5 - 1.4 04/08 MH S Creatinine /2018 Ortho and Spine ELECTROLYTE POC Sodium 138 135 - 145 04/08 MH S Ortho and Spine ELECTROLYTE POC AGAP 14.0 10.0 - 05 MH S 20.0 2019 Ortho and Spine ELECTROLYTE POC 10.5 12.0 - 05 MH S Hemoglobin 16.0 Ortho and Spine ELECTROLYTE eGFR 99 04/08 Result S Comment: The Ortho eGFR is and calculated Spine using the CKD-EPI formula. In most young, healthy individuals the eGFR will be >90 mL/min/1.73m2 . The eGFR declines with age. An eGFR of 60-89 may be normal in some populations, particularly the elderly, for whom the CKD-EPI formula has not been extensively validated. Use of the eGFR is not recommended in the following populations:< br/>
Layla viduals with unstable creatinine concentration s, including patients and those with serious co-morbid conditions.<b r/>
Patie nts with extremes in muscle mass or diet.

The data above are obtained from the National Kidney Disease Education Program (NKDEP) which additionally recommends that when the eGFR is used in patients with extremes of body mass index for purposes of drug dosing, the eGFR should be multiplied by the estimated BMI. ELECTROLYTE POC 31.0 36.0 - 04/08 MH S Hematocrit 48.0 /2019 Ortho and Spine CHEM PANEL Albumin Lvl 3.0 3.5 - 5.0 04/08 Ortho and Spine CHEM PANEL Magnesium Lvl 1.4 1.8 - 2.4 04/08 Ortho and Spine ELECTROLYTE CO2 28 24 - 32 05 Ortho and Spine ELECTROLYTE Calcium Lvl 8.0 8.5 - 10.5 04/08 Ortho and Spine ELECTROLYTE Sodium Lvl 139 135 - 145 04/08 Ortho and Spine ELECTROLYTE Creatinine 0.70 0.50 - 05 MH S Lvl 1.40 /2019 Ortho and Spine ELECTROLYTE BUN 8 7 - 22 04/08 Ortho and Spine ELECTROLYTE Potassium Lvl 3.7 3.5 - 5.1 04/08 Ortho and Spine ELECTROLYTE Chloride Lvl 103 95 - 109 04/08 Ortho and Spine ELECTROLYTE Glucose Lvl 95 70 - 99 04/08 Ortho and Spine ELECTROLYTE AGAP 11.7 10.0 - 05 MH S 20.0 /2018 Ortho and Spine HEMATOLOGY Lymphocytes 11.9 20.0 - 04/08 40.0 /2019 Ortho and Spine HEMATOLOGY Basophils 0.7 0.0 - 1.0 04/08 Ortho and Spine HEMATOLOGY Monocytes 7.6 2.0 - 12.0 04/08 Ortho and Spine HEMATOLOGY Neutrophils # 5.2 1.5 - 8.1 04/08 Ortho and Spine HEMATOLOGY Lymphocytes # 0.8 1.0 - 5.5 04/08 Ortho and Spine HEMATOLOGY Eosinophils 2.6 0.0 - 4.0 04/08 Ortho and Spine HEMATOLOGY Monocytes # 0.5 0.0 - 0.8 04/08 Ortho and Spine HEMATOLOGY Eosinophils # 0.2 0.0 - 0.5 04/08 Ortho and Spine HEMATOLOGY Segs 77.2 45.0 - 04/08 MH 75.0 /2019 Ortho and Spine HEMATOLOGY MCHC 33.5 32.0 - 04/08 MH 36.0 /2019 Ortho and Spine HEMATOLOGY Platelet 169 133 - 450 04/08 Ortho and Spine HEMATOLOGY RDW 14.8 11.5 - 04/08 14.5 /2019 Ortho and Spine HEMATOLOGY MPV 8.9 7.4 - 10.4 04/082018 Ortho and Spine HEMATOLOGY WBC 6.8 3.7 - 10.4 04/08 /2018 Ortho and Spine HEMATOLOGY Hgb 9.9 12.0 - 04/08 MH 16.0 /2019 Ortho and Spine HEMATOLOGY RBC 3.45 4.20 - 04/08 MH 5.40 /2018 Ortho and Spine HEMATOLOGY Hct 29.6 36.0 - 04/08 MH 48.0 /2019 Ortho and Spine HEMATOLOGY MCH 28.7 27.0 - 04/08 MH 31.0 Ortho and Spine HEMATOLOGY MCV 85.8 80.0 - 04/08 MH 98.0 /2018 Ortho and Spine BLOOD BANK ABO/Rh A POS 04/07 RESULTS /2018 Ortho and Spine BLOOD BANK Antibody Scrn Negative 04/07 RESULTS (04/07/19 5:57 AM) /2018 Ortho and Spine BLOOD BANK ABO/Rh A POS 03/17 RESULTS /2018 Ortho and Spine BLOOD BANK Antibody Scrn Negative 03/17 RESULTS (03/17/19 12:44 PM) Ortho and Spine CHEM PANEL B/C Ratio 29 6 - 25 03/17 Ortho and Spine CHEM PANEL AGAP 12.9 10.0 - 03/17 MH 20.0 Ortho and Spine CHEM PANEL A/G Ratio 1.0 0.7 - 1.6 03/17 Ortho and Spine CHEM PANEL Globulin 3.3 2.7 - 4.2 03/17 Ortho and Spine CHEM PANEL Bili Total 0.4 0.2 - 1.3 03/17 Ortho and Spine CHEM PANEL Creatinine 0.70 0.50 - 03/17 MH Lvl 1.40 Ortho and Spine CHEM PANEL BUN 20 7 - 22 03/17 Ortho and Spine CHEM PANEL Glucose Lvl 106 70 - 99 03/17 Ortho and Spine CHEM PANEL Sodium Lvl 143 135 - 145 03/17 Ortho and Spine CHEM PANEL Chloride Lvl 108 95 - 109 03/17 Ortho and Spine CHEM PANEL CO2 26 24 - 32 03/17 Ortho and Spine CHEM PANEL Calcium Lvl 7.8 8.5 - 10.5 03/17 Ortho and Spine CHEM PANEL Potassium Lvl 3.9 3.5 - 5.1 03/17 Ortho and Spine CHEM PANEL Albumin Lvl 3.4 3.5 - 5.0 03/17 Ortho and Spine CHEM PANEL Total Protein 6.7 6.4 - 8.4 03/17 Ortho and Spine CHEM PANEL Alk Phos 78 39 - 136 03/17 MH Ortho and Spine CHEM PANEL ASPARTATE 28 0 - 37 03/17 MH TRANSAMINASE Ortho and Spine CHEM PANEL ALANINE 24 0 - 65 03/17 AMINOTRANSFER Ortho ASE and Spine HEMATOLOGY Basophils # 0.1 0.0 - 0.2 03/17 Ortho and Spine Pathology Reports No Data Provided for This Section Diagnostic Reports Report Value Date Source Chest 1view DX EXAM: XR CHEST 1 VIEW 04/10/2019 [facility] ermann DATE: 04/10/2019 0:50 CDT INDICATION: - fever ADDITIONAL INFORMATION: Post operative day #3 status post left total hip replacement. COMPARISON: None available. TECHNIQUE: AP chest. FINDINGS: Lines, tubes and hardware: M ultiple hernia mesh tacks project over the central inferior thorax. Lungs and pleura: The lungs are clear. No pleura l effusion or pneumothorax. Heart and mediastinum: The h eart size is normal for technique. Vascular calcifications are present at the aorta. Pulmonary vascularity is normal. Bones: No acute abnormality. Generalized decreased bone mineral density noted. Mild thoracic dextroscoliosis with apex at T7. Degenerative endplate changes of the spine and osteoarthritic changes of the acromioclavicular and glenohumeral joints bilat erally are noted. IMPRESSION: No acute cardiopulmonary abnormality. No focal c onsolidation. Hip 1 view DX EXAM: XR LEFT HIP 1 VIEW 04/07/2019 [facility] DATE: 04/07/2019 10:36 CDT INDICATION: Hardware follow-up COMPARISON: Radiograph performed same day TECHNIQUE: A single AP view of the hip, includi ng the pelvis DISCUSSION: Total left hip a rthroplasty shows good alignment without complications. Postsurgical soft tissue changes visualized IMPRESSION: 1. Satisfactory alignment of the total left hip arthroplasty. Hip 1 view DX EXAM: XR LEFT HIP 1 VIEW 04/07/2019 [facility] [place] DATE: 04/07/2019 7:00 CDT INDICATION: LEFT TOTAL HIP REPLACEMENT - INTRA-O P LEFT ARMAND COMPARISON: None TECHNIQUE: A single AP view of the hip, includi ng the pelvis DISCUSSION: The examination is limited by portable technique and overlying artifact. There has been interval resection of the left femoral head and neck, and placement of a femoral rasp and acetabular c up which project in satisfac tory alignment on this frontal radiograph, with an acetabular cup angle of approximately 5 degrees. IMPRESSION: Satisfactory ali gnment of a left acetabular cup and femoral rasp on this frontal radiograph. Consultation Notes No Data Provided for This Section Discharge Summaries No Data Provided for This Section History and Physicals No Data Provided for This Section Vital Signs Vital Sign Value Date Comments Source Systolic (mm Hg) 110 04/10/2019 [facility] Diastolic (mm Hg) 56 04/10/2019 [facility] Heart Rate 77 04/10/2019 [facility] Respitory Rate 18 04/10/2019 [facility] Temperature Oral (F) 98.5 F 04/10/2019 [facility] Temperature Oral (F) 99.9 F 04/10/2019 [facility] Heart Rate 87 04/10/2019 [facility] Systolic (mm Hg) 105 04/10/2019 [facility] Diastolic (mm Hg) 51 04/10/2019 [facility] Respitory Rate 18 04/10/2019 [facility] Systolic (mm Hg) 116 04/10/2019 [facility] Diastolic (mm Hg) 65 04/10/2019 [facility] Temperature Oral (F) 99.4 F 04/10/2019 [facility] Respitory Rate 18 04/10/2019 [facility] Heart Rate 77 04/10/2019 [facility] Height 160.02 cm 04/07/2019 [facility] BMI Calculated 20.95 04/07/2019 [facility] Weight 53.636 04/07/2019 [facility] BMI Calculated 21.21 03/17/2019 [facility] Weight 54.659 03/17/2019 [facility] Height 160.53 cm 03/17/2019 [facility] Encounters Location Location Encounter Encounter Reason Attending ADM VT Stat Source Details Type Number For Provider Date Date Visit [facility] Inpatient [id number] Shaun 04/07 04/10 Gera Anglin /2018 [facility] Procedures Procedure Code Date Perfomer Comments Source Hernia repair [id number] 01/25/2016 [facility] Parathyroid gland [id number] 01/10/2016 [facility] Gastric bypass [id number] 08/19/2015 [facility] Total hip replacement [id number] 08/18/2013 [facility] Exploratory [id number] 11/26/2012 [facility] laparotomy [facility] Sp[facility] Urethral dilatation - [id number] 11/26/2012 [facility] female [facility] Spine Nasal endoscopy with [id number] 11/26/2007 [facility] nasal polypectomy and Spi ne Repair of cystocele [id number] 11/26/2006 [facility] Cholecystectomy [id number] 11/26/2005 [facility] Lysis of adhesions of [id number] 11/26/1999 [facility] abdomen [facility] Appendectomy [id number] 11/26/1998 [facility] Oophorectomy [id number] 11/26/1997 [facility] Lumpectomy of right [id number] 11/26/1993 [facility] breast [facility] Spine Hysterectomy [id number] 11/26/1983 [facility] Tubal ligation [id number] 11/26/1981 [facility] ORIF - Open reduction [id number] 11/26/1965 [facility] and internal fixation and Spine of fracture CTR - Carpal tunnel [id number] [facility] tho release and Spine ORIF - Open reduction [id number] [facility] internal fixation [facility] Spine of fracture<sup>1</sup> Assessment and Plan Assessment and Plan Date Source Extracted from:Title: Progress Note 04/10/2019 [facility] Author: Kuldeep Rosenthal MD Date: 04/10/19 1.OA (osteoarthritis) of the left hip(M16.9) Postop day #3 status post left total hip arthroplasty She continues to progress well physical therapy Continue pain and bowel regimen Lovenox for DVT prophylaxi s 2.Upper respiratory infection(J06.9) Patient hadfever of 101F overnightalon g with associatedsneezing and shortness of breathand no other foci of symptoms Chest x-ray was done whichdid not show any infiltratesor ed daren Lung auscultation revealed some crackle s at left lung base which could be passenger service representative of atelectasisbut cannot rule out underlyingearly pneumonia Possiblyepisode of viral upper respirat ory infectionbut due to underlying respiratory historywilldischarge the patient layo short course of doxycycline, as antibiotic choices are limited secondary to he r multiple allergies, and pt has reporte d that she was able to tolerate doxycycline in the past without complications UA was wnl during fever eval 3.Asthma(J45.909) Mild episode of shortness of breath ove rnight which required nebulizer therapyand symptoms have now resolved Continue Pro Air as outpatient 4.Anemia(D64.9) Secondary to acute blood loss anemia Hemoglobin remained stable Transfuse if less than 7 5.HTN (hypertension)(I10) Amlodipine will be continued 6.Hyperparathyroidism(E21.3) Continue calcitriol and calcium supplementation 7.Muscle cramps(R25.2) Continue with management as per #6 8.Hiatal hernia(K44.9) 9.Hypoalbuminemia(E88.09) 10.Preop cardiovascular exam(Z01.810) 11.Hypomagnesemia(E83.42) will resume her daily mag supplements as outpatient lovenox home today [facility] is consult. If any questions, plea se contact Dr. Kuldeep Gutierrez [employer] or call [phone] Extracted from:Title: Discharge Summary *mgk Author: Shaun Larsen MD Date: 04/10/19 Discharge Information pending cxray pod #3 s/p left thr,progr essing with physical therapy,vss tm 99.4,fever yesterday most likely post op atelectasis,physical therapy today then discharge if stable, Discharge Plan Discharge Summary Plan Discharge Status: improved. Discharge instructions given: to patient, to caregiver. Discharge disposition: discharge to home. Prescriptions: written and given to patient. Course Improving. Education and Follow-up Counseled: patient, family. Extracted from:Title: Consult Note Author: Linda Ceja DO Date: 03/17/19 1.Preop cardiovascular exam(Z01.810) -Type of surgery:Left total hip arthroplasty, intermediate r isk -Surgery specific medical issues:Hypertension -Physical exam concerns:None -Patient is able to complete greater armand n 4 METsentheses vacuuming) without cardiovascular symptoms -Baseline EKG reveals sinus rhythm with incomplete right bun dle branch block -Outpatient information specialist:None -Revised cardiac index score is 0 thus p utting the patient at a 0.4% risk of major perioperative cardiac event -Patient is considered a low perioperati ve cardiovascular risk for this intermediate risk procedure and may proceed with no further preoperative workup -The risks and benefitsof surgery were discussed with the jose manuel garvey 2.OA (osteoarthritis) of hip(M16.9) The patient is scheduled to undergo left total hip arthroplasty with Dr. Rao 04/07/2019 3.Asthma(J45.909) Continue as needed Pro Air, there is no evidence of acute ex acerbation 4.Anemia(D64.9) Anemiasince the gastric bypass, she was counseled oneating a diet rich iniron, B12 and folate, she reports that she does receive monthly B12 injections 5.HTN (hypertension)(I10) Controlled, patient takes amlodipine 5 m g daily, she was instructed to take this on the morning of surgery 6.Hyperparathyroidism(E21.3) Status post parathyroidectomy, the patie nt takes calcitriol 0.5 mcg daily and calcium with vitamin D, without thecalcium she develops paresthesias and cramps, she was instructed to continue the calciumw ithoutvitamin D and she was instructed to hold this on the m orning of surgery 7.Muscle cramps(R25.2) Due to hypocalcemia, monitor 8.Hiatal hernia(K44.9) Patient has a history of hiatal hernia b ut is status post gastric bypass, she continues to take sucralfate 3 times daily and omeprazole 40 mg, she was instructed to take both of these on the morning of surgery 9.Hypoalbuminemia(E88.09) The albumin is 3.4, she was instructed t o increase dietary protein including meat,dairy, eggs, legumes he is unable to drink boost or Ensure due to the history ofgastric bypass [facility] hospitalist is a environmental consultant, florina krueger call [phone] with questions or concerns. Addendum by Linda Ceja DO on 03/24/2019 08:55 CDT I spoke with Ms. Fan, she is unable to find calcium without vitamin D and thus will continue the calcium with D in light of her hyperparathyroidism. She was reminded of our conversation in clinic that she should not holdthe calcium per our usual protocolbut was instructed to hold on the morning of surgery but will need to have the dose after the procedure. Plan of Care No Data Provided for This Section Social History Social History Date Source Social History TypeResponse 03/12/2019 [facility] Substance Abuse Use: None. Exercise Exercise duration: 0.1 Alcohol Never Smoking Status Former smoker; Type: Cigarettes; Exposur e to Tobacco Smoke None; Cigarette Smoking Last 365 Days No; Reg Smoking Cessation Counseling No; Tobacco use per day: 4; Started at age: 24.0; Stopped at age: 53; entered on: 04/07/19 1DENIES SOB/CP WITH EXERTION Family History No Data Provided for This Section Advance Directives No Data Provided for This Section Functional Status No Data Provided for This Section
--- OUTSIDE RECORDS SUMMARY | 2020-05-27 23:22 | XMS REPORT | Continuity of Care Document ---
:1960 Author Organization [facility] t Address [address] [place] [address] Care Team Providers Name Role Phone Shakeel LOCK Primary Care Physician Marycarmen Ovalle Attending Clinician Toby Flores MD Attending Clinician Doctor Unassigned, Name Attending Clinician Unavailable Dawson LOCK Attending Clinician Marycarmen Ovalle MD Attending Clinician Douglas Brown Attending Clinician DAVIDE SAVAGE Attending Clinician Unavailable Davide Savage MD Attending Clinician Buddy Sanchez MD Attending Clinician Julisa LOCK Attending Clinician Lanette Greene CRNA Attending Clinician Juliana Figueredo MD Attending Clinician Davide LOCK Attending Clinician Nuno ALBRECHT Attending Clinician Unavailable Tami LOCK T. Attending Clinician Eric LOCK Attending Clinician Clark LOCK M. Attending Clinician Luis F ALBRECHT, X Attending Clinician Unavailable Belkys ELIAS Attending Clinician Unavailable Rachel ELIAS Attending Clinician Unavailable Bradley Larsen Attending Clinician HASEEB STATON Attending Clinician Unavailable DAVIDE SAVAGE Admitting Clinician Unavailable JULISA Admitting Clinician Unavailable Bradley Larsen Admitting Clinician JUAN PABLO SRINIVASAN Admitting Clinician Unavailable Payers Payer Name Policy Policy Number Effective Expiration Source Type Date Date MEDICAREMEDICARE A xxxxxxxxxxx [facility] AETNA - MGD CAREAETNA xxxxxxxxx [facility] INDEMNITY NON - Medical CONTRxxxxxxxxxComm Center MEDICAREMEDICARE PART A xxxxxxxxxxx 1996 [place] AND 00:00:00 Christian Bxxxxxxxxxxx1996[place] P[place] OPEN xxxxxxxxxx 2003 [place] CHOICExxxxxxxxxx2003 00:00:00 Christian -PresentPPO Problems Condition Condition Condition Status Onset Resolution Last Treating Co mments Source Name Details Category Date Date Treatment Clinician Date Common Common Disease Active 2018-[address] [facility] bile duct bile duct 0-30 Luke s - (CBD) (CBD) 00:00: Medical stricture stricture 00 Cent er Epigastric Epigastric Disease Active Last H [facility] abdominal abdominal 8-30 Assessmen M ethodi pain pain 00:00: t & Plan: st 00 The patient was also sent for an amylase and lipase which returned as normal. Patient has had a normal ultrasoun d as well as a CT scan of her abdomen pelvis. The patient is already had a ERCP with stent placement and stent retrieval . I have been trying to obtain these records from [facility]. The patient reports her last upper endoscopy was approxima tely 1 year ago. The patient will be referred to GI for repeat upper endoscopy and any additiona l work-up necessary . The patient was also given additiona l Zofran. Patient has had normal LFTs on 07/21/2019 and was sent for an amylase and lipase which were also normal today. LT HIP OA Diagnosis Active 2019-04-15 Memoria 03-03 22:17:00 l LT HIP 00:00: Gera OA [facility] S[facility]P ERCP S/P ERCP Disease [facility] Medical 00 [place] Bile duct Bile duct Disease Active [facility] obstructio obstructio 4-11 Gwendolyn kes - n n 00:00: Medical 00 [place] Common Common Disease Active [facility] bile duct bile duct 4- Luke s - obstructio obstructio 00:00: Mo dical n n 00 [place] Epigastric Epigastric Disease Active [facility] abdominal abdominal 3 Luke s - pain of pain of 00:00: Medical unknown unknown 00 Center etiology etiology Status Status Disease Active 2015-11 [facility] post post 2-15 Assessmen Methodi gastric gastric 00:00: t & Plan: st bypass for bypass for 00 Patient obesity obesity was instructe d to continue regular diet and increase intake of high-robert marion foods like nuts. Weight gain goal of 10lbs at next visit. Patient to provide color copy of January 2019 EGD from [facility] for review. If her abdominal pain still persists in 1 month, she was instructe d to call our office to schedule UGI and EGD. Possible abdominal CT at a later time. Labs reviewed with the patient in detail. Continue taking PO iron and PPI. Discontin ue carafate. The patient was allowed ample time for numerous questions that were answered to her satisfact ion. The patient was examined and evaluated with Dr. Rodas and he agrees with the above plan. Return to clinic in 1 year for the next follow-up visit. History of History of Disease Active 2015-11 [place] hyperparat hyperparat 2-15 Me thodi hyroidism hyroidism 00:00: st 00 Wheezing [facility] Asthma Asthma Disease Active 2015-11 [place] 0-05 Methodi 00:00: st 00 Urgency of Urgency of Disease Active 2015-11 Overview : [place] urination urination 0-05 Urgency Met hodi 00:00: and st 00 nocturia weak bladder Difficulty Difficulty Disease Active 2015-11 Overview : [place] urinating urinating 0-05 Pain/buri M ethodi 00:00: ng with st 00 urinating Joint pain Joint pain Disease Active 2015-11 [place] 0-05 Methodi 00:00: st 00 Back pain Back pain Disease Active 2015-11 Jad ston 0-05 Methodi 00:00: st 00 Major bone Major bone Disease Active 2015-11 [place] injuries injuries 0-05 Method i 00:00: st 00 Non-alcoho Non-alcoho Disease Active 2013-11 [facility] [place] lic fatty lic fatty - Meth joyce liver liver 00:00: st disease disease 00 Anemia Problem Active 2019-04-12 Memor ia (disorder) 21:26:57 l Anemia Gera (disorder) Active Problem 04/12/2019 [facility] Bradycardi Problem Active 2019-04-12 M emoria a 21:26:57 l (disorder) Gerson nichole Bradycardi a (disorder) Active Problem 04/12/2019 [facility] Cramp Problem Active 2019-04-12 Memor ia (finding) 21:26:57 l Cramp Gera (finding) Active Problem 04/12/2019 [facility] Diverticul Problem Active 2019-04-12 M emoria itis 21:26:57 l (disorder) [place] n Diverticul itis (disorder) Active Problem 04/12/2019 [facility] Hiatal Problem Active 2019-04-12 Memor ia hernia 21:26:57 l (disorder) Hiatal Herm jacky hernia (disorder) Active Problem 04/12/2019 [facility] Hyperparat Problem Active 2019-04-12 M emoria hyroidism 21:26:57 l (disorder) [place] n Hyperparat hyroidism (disorder) Active Problem 04/12/2019 [facility] Hypertensi Problem Active 2019-04-12 M emoria ve 21:26:57 l disorder, [place] systemic Hypertensi arterial ve (disorder) disorder, systemic arterial (disorder) Active Problem 04/12/2019 [facility] Osteoarthr Problem Active 2019-04-12 M emoria itis of 21:26:57 l hip Gera (disorder) Osteoarthr itis of hip (disorder) Active Problem 04/12/2019 [facility] History of Past Illness Condition Condition Condition Status Onset Resolution Last Treating Co mments Source Name Details Category Date Date Treatment Clinician Date Clostridiu Problem Resolve 2019-04-12 2019-04-12 Andria caballero d 11-26 21:26:57 21:26:57 l difficile 00:00: [place] diarrhea Clostridiu 00 (disorder) m difficile diarrhea (disorder) Resolved 11/26/2015 Problem 04/12/2019 [facility] Allergies, Adverse Reactions, Alerts Allergy Allergy Status Severity Reaction(s) Onset Inactive Treating Comm ents Source Name Type Date Date Clinician Nellyoxicdaniel Camposi Active Shortness Of 2018-[address] [facility] ty to Breath 2-20 y [facility] - adverse 00:00: breathing Medica l reaction 00 Center s propoxyp DA Active [place] 2017-11 [facility] HCl 12-03 [facility]: [facility]ope [facility] butorpha DA Active 2017-11 [facility] nol 12-03 tartrate 00:00: Orthope 00 [facility] Pentazoc DA Active [place] 2017-11 [facility] ine 12-03 Lactate 00:00: Orthope 00 dic [facility] ciproflo DA Active [place] 2017-11 [facility] xacin 12-03 HCl 00:00: Orthope 00 [facility] Cephalex DA Active [place] 2017-11 [facility] in 12-03 Monohydr 00:00: Orthope ate 00 dic [facility]ospita l morphine DA Active [place] 2017-11 [facility] 12-03 00:00: Orthope 00 [facility] codeine DA Active [place] 2017-11 [facility] 12-03 00:00: Orthope 00 dic [facility]osp[facility] l hydrocod DA Active [place] 2017-11 [facility] one 12-03 00:00: Orthope 00 [facility] sulfadia DA Active [place] 2017-11 [facility] zine 12-03 00:00: Orthope 00 dic [facility]ospita l ciproflo DA Active [place] 2017-11 [facility] xacin 12-03 00:00: Orthope 00 dic [facility] l fentanyl DA Active [place] 2017-11 [facility] 12-03 00:00: Orthope 00 dic [facility]ospita l tramadol DA Active [place] 2017-11 [facility] 12-03 [place] 00:00: Orthope 00 [facility] penicill DA Active [place] 2017- [facility] in G 12-03 [place] 00:00: Orthope 00 dic [facility]osp[facility] l OSTEOTRT DA Active [place] 2017- [facility] HRITIS 12-02 [place] MEDS 00:00: Orthope 00 dic Hospita l Lidocain Drug Active Tinitus 2016- Lidocaine [facility] e Allergy 4-11 patch [facility] - 00:[facility]: Medical 00 Center Adhesive Drug Active Itching, 2017- Tongue [facility] Allergy Swelling 06 swelling [facility] - 00:00: Medical 00 Center Hydrocod Drug Active Nausea And 2016- [facility] one-Acet Allergy Vomiting, 01-24 Luke s - aminophe Rash 00:00: Medical n 00 Center Butorpha Drug Active Anaphylaxis 2016- [facility] nol Allergy 3 [facility] - Tartrate 00:00: Medical 00 Center Cephalex Drug Active Hives 2016- [facility] in Allergy 01-24 [facility] - 00:00: Medical 00 Center Ciproflo Drug Active Other (See 2017- Bone [facility] xacin Intolera Comments) 3 aches [facility] - nce 00:00: Medical 00 Center Codeine Drug Active Rash 2016- [facility] Allergy 01-24 [facility] - 00:00: Medical 00 Center Fentanyl Drug Active Anxiety 2017- Fentanyl [facility] Allergy 3 patch [facility] - 00:00: only Medical 00 Center Gabapent Drug Active Itching 2017- [facility] in Allergy 3 [facility] - 00:00: Medical 00 Center Morphine Drug Active Hives, 2017- Tongue [facility] Allergy Nausea And 3 swelling [place] es - Vomiting, 00:00: Medical Swelling 00 Center Penicill Drug Active Anaphylaxis 2017- [facility] ins Allergy 01-24 [facility] - 00:00: Medical 00 Center Pentazoc Drug Active Anaphylaxis 2017- [facility] ine Allergy 3 [facility] - 00:00: Medical 00 Center Sulfa Drug Active Rash 2017- [facility] (Sulfona Allergy 3 [facility] - mide 00:00: Medical Antibiot 00 Center ics) Tramadol Drug Active Anaphylaxis 2017- [facility] Allergy 3 [facility] - 00:00: Medical 00 Center Acetamin Drug Active Nausea And 2017- [facility] ophen Allergy Vomiting, 3- [facility] - Rash 00:00: Medical 00 Center Ciproflo Propensi Active Other (See 2012-11 Reaction- [place] xacin ty to Comments) 2 headache, Meth joyce adverse 00:00: bones st reaction 00 ache s to drug Other Propensi Active Itching, 2012-11 Hydrocodo Jad ston ty to Rash 12-31 niephen Methodi adverse 00:00: reaction st reaction 00 rash/itch s -per scan chart-Sta ydohl-ayan ction-thr oat swells,fe andrei-per scan chart Penicill Propensi Active Swelling 2012-11 Throat [place] ty to 12-31 swells Methodi adverse 00:00: st reaction 00 s to drug Sulfa Propensi Active Itching, 2012-11 Sulfa [place] (Sulfona ty to Rash 12-31 Methodi mide adverse 00:00: st Antibiot reaction 00 ics) s to drug Tramadol Propensi Active Other (See 2012-11 Reactions [place] ty to Comments) 12-31 -severe Method i adverse 00:00: stomach st reaction 00 pain s to drug propoxyp DA Active [place] [facility] HCl 06-09 [place] 00:00: Orthope 00 dic [facility]ospita l butorpha DA Active SV [facility] nol 06-09 [place] tartrate 00:00: Orthope 00 dic [facility]osp[facility] l Pentazoc DA Active [place] [facility] ine 06-09 [place] Lactate 00:00: Orthope 00 dic [facility]ospita l ciproflo DA Active [place] [facility] xacin 06-09 [place] HCl 00:00: Orthope 00 dic [facility]ospita l Cephalex DA Active [place] [facility] in 06-09 [place] Monohydr 00:00: Orthope ate 00 dic [facility]ospita l morphine DA Active [place] [facility] 06-09 [place] 00:00: Orthope 00 dic [facility]ospita l codeine DA Active [place] [facility] 06-09 [place] 00:00: Orthope 00 dic [facility]osp[facility] l hydrocod DA Active [place] [facility] one 06-09 [place] 00:00: Orthope 00 dic [facility]ospita l sulfadia DA Active [place] [facility] zine 06-09 [place] 00:00: Orthope 00 dic Hospita l ciproflo DA Active [place] [facility] xacin 06-09 [place] 00:00: Orthope 00 dic Hospita l fentanyl DA Active [place] [facility] 06-09 [place] 00:00: Orthope 00 dic Hospita l tramadol DA Active SV [facility] 06-09 [place] 00:00: Orthope 00 dic Hospita l penicill DA Active [place] [facility] in G 06-09 [place] 00:00: Orthope 00 dic Hospita l sulfa sulfa Active Memoria drugs drugs l [place] ciproflo ciproflo Active Memori a xacin xacin l [place]era codeine codeine Active Memoria l [place] penicill penicill Active Memori a in in l [place] morphine morphine Active Memori a l [place] caffeine caffeine Active Memori a l [place] fentanyl fentanyl Active Memori a topical< topical< l sup>1</s sup>1</s [place] n up> up> Keflex Keflex Active Memoria l [place] Stadol Stadol Active Memoria l [place] Neuronti Neuronti Active Memori a n n l [place] Talwin Talwin Active Memoria l [place] Ultram Ultram Active Memoria l [place] Tylenol Tylenol Active Memoria l [place] meloxica meloxica Active Memori a m m l [place] oxyCODON oxyCODON Active Memori a E E l [place] HYDROcod HYDROcod Active Memori a one one l [place] Family History Family Member Diagnosis Comments Start Date Stop Date Source Natural brother No Known Problems Ho chandrika Christian Natural father Cancer [facility] thodist Natural father Cancer [facility] Natural mother Hypertension Herman Christian Natural mother Pneumonia [place] [facility] thodist Natural mother Rheum arthritis [place] Natural mother Hypertension [facility] Other Diabetes [place] Method ist Other Stroke [place] Method ist Natural sister No Known Problems Jadaugust noyola Christian Family member Colon cancer [facility] ethodist Family member Colon polyps [facility] ethodi Social History Social Habit Start Date Stop Date Quantity Comments Source Sex Assigned At [facility] Cigarettes smoked 2020-04-27 2020-04-27 [facility] - current (pack per 00:00:00 00:00:00 Medical Center day) - Reported Cigarette 2020-04-27 2020-04-27 [facility] - pack-years 00:00:00 00:00:00 [facility] Alcohol intake 2019-09-03 2019-09-03 Current Herman Me thodist 00:00:00 00:00:00 non-drinker of alcohol (finding) Social History 2019-03-12 2019-03-12 Jyoti azevedo 14:25:39 14:25:39 Tobacco Comment 2017-03-01 2017-03-01 quit 2009 DOM Reese Gwendolyn kes - 00:00:00 00:00:00 [facility] Center Smoking Status Start Date Stop Date Source Former smoker 2020-04-27 00:00:00 2020-04-27 00:00:00 [facility] Medications Ordered Filled Start Stop Current Ordering Indication Dosage Frequency Signature Comments Components Source Medication Medication Date Date Medication? Clinician (SIG) Name Name pancrelipas 2020-0 Yes 1{capsu Q.5D Take [address] e, 6-01 le} capsule by [facility] - Lip-Prot-Am 13:27: mouth 2 Med ical yl, 59 (two) Center (ZENPEP) times 20,000-63,0 daily. 00- 84,000 unit CpDR capsule calcitriol 2020-0 Yes 1ug Q.5D Take [address] (ROCALTROL) 6-01 by mouth 2 Gwendolyn kes - 0.5 MCG 10:11: (two) Medical capsule 04 times Center daily . omeprazole 2020-0 Yes 40mg Q.5D Take [address] (PRILOSEC) 6-01 by mouth 2 [place] es - 40 MG 10:11: (two) Medical capsule 04 times Center daily . ferrous 2020-0 Yes 648mg Q.5D Take 648 [facility] gluconate 6-01 mg by [facility] - (FERGON) 10:11: mouth 2 Medica l 324 MG 04 (two) Center tablet times daily . magnesium 2020-0 Yes QD Take by [facility] oxide 500 6-01 mouth [facility] - mg Cap 10:11: daily . Medical 04 Center amLODIPine 2020-0 Yes 2.5mg QD Take 2.[address] (NORVASC) 6-01 mg by [facility] - 2.5 MG 10:11: mouth Medical tablet 04 daily. [place] amLODIPine 2019-0 2020- No 2.5mg QD Take 2.[address] (NORVASC) 6-01 06-01 mg by [facility] - 10 MG 10:08: 00:00 mouth Medical tablet 53 :00 daily . [place] ondansetron 2018-11 Yes 8mg Take [address] (ZOFRAN-ODT 2-24 by mouth 2 Gwendolyn kes - ) 8 MG 09:54: (two) Medical disintegrat 36 times Center ing tablet daily as needed for Nausea. IRON,CARBON 2018-11- No QD Take by [facility] YL/ASCORBIC 2-20 12-20 mouth [facility] - ACID 10:52: 00:00 daily . Medical (IRON-VITAM 58 :00 Center IN C ORAL) HYDROmorpho 2018-11 Yes 2mg Take [address] [facility] ne 1-05 tablet (2 [facility]ukes - (DILAUDID) 00:00: mg total) Me dical 2 MG tablet 00 by mouth Cent er every 6 (six) hours as needed for Pain for up to 10 doses. Max Daily Amount: 8 mg polyethylen 2018-11 No 17g QD Take [address] [facility] e glycol - 12-05 by mouth [facility]ukes - (GLYCOLAX) 00:00: 23:59 daily for M edical 17 gram 00 :00 30 days. Center packet ondansetron 2018-11- No 4mg Take [address] [facility] (ZOFRAN-ODT - 11-12 tablet (4 Gwendolyn kes - ) 4 MG 00:00: 23:59 mg total) Medic al disintegrat 00 :00 by mouth Cent er ing tablet every 6 (six) hours as needed for up to 7 days. HYDROmorpho 2018-11- No 2mg Take [address] [facility] [facility] ne 1-05 11-05 tablet (2 [facility] - (DILAUDID) 00:00: 00:00 mg total) M edical 2 MG tablet 00 :00 by mouth Cent er every 6 (six) hours as needed for Pain for up to 10 doses. Max Daily Amount: 8 mg magnesium 2018-11- No 400mg Q.5D Take [address] oxide 11-26 mg by [facility]ukes - (MAG-OX) 22:30: 00:00 mouth 2 Medic al 400 mg 33 :00 (two) Center tablet times daily. sucralfate 2018-11- No 1g Q.5D Take [address] (CARAFATE) 11-26 by mouth 2 Gwendolyn kes - 1 gram 22:30: 00:00 (two) Medical tablet 06 :00 times Center daily. calcium 2018-11 Yes 2000mg Take 2,[address] carbonate 0-31 mg by [facility] - 1250 MG 08:03: mouth 2 Medical capsule 12 (two) Center times daily with breakfast and dinner . ferrous 2018-11 2020- No 324mg QD Take 1 [place] gluconate 0-11 10-10 tablet Methodi (FERGON) 00:00: 23:59 ([address] 324 MG 00 :00 total) by tablet mouth daily with breakfast. cyanocobala 2018-11 Yes Status post 1000ug Q30D Inject 1 Herman min 1,000 0-10 bariatric mL (1,000 Methodi mcg/mL 00:00: surgery mcg total) st injection 00 into the shoulder, thigh, or buttocks every 30 (thirty) days. vitamin A 2018-11 Yes 8000U QD Take 8,000 [place] 8000 UNIT 0-09 Units by Method i capsule 13:09: mouth st 55 daily. ferrous 2018-11 Yes 1{tbl} QD Take 1 [place] sulfate 0-09 tablet by Methodi (IRON ORAL) 13:09: mouth st 55 daily. MULTIVITAMI 2018-11 Yes 1{tbl} QD Take 1 [place] N ORAL 0-09 tablet by Methodi 13:09: mouth st 55 daily. ondansetron 2018-11 Yes 4mg Q8H Take 1 [place] (ZOFRAN) 4 0-09 tablet (4 Meth joyce MG tablet 00:00: mg total) st 00 by mouth every 8 (eight) hours as needed for nausea or vomiting. dicyclomine 2018-11 2020- No 10mg Q.25D Take 1 [place] (BENTYL) 10 0-09 10-08 capsule Meth joyce MG capsule 00:00: 23:59 ([address] 00 :00 total) by mouth 4 (four) times a day before meals and nightly. hyoscyamine 2018-11 2019- No .125mg Q4H Take 1 [place] (LEVSIN) 0-09 11-08 tablet Methodi 0.125 mg 00:00: 23:59 (0.[address] tablet 00 :00 total) by mouth every 4 (four) hours as needed for cramping for up to 30 days. ondansetron Yes 4mg Q8H Take 1 [place] (ZOFRAN) 4 8-30 tablet (4 Meth joyce MG tablet 00:00: mg total) st 00 by mouth every 8 (eight) hours as needed for nausea or vomiting. cyanocobala 2018- No Status post NJECT 1 Herman min 1,000 8-27 10-08 bariatric MLIM EVERY Methodi mcg/mL 00:00: 00:[address] injection 00 :00 Magnesium Yes 400 mg = 1 Me moria Oxide 5-16 tab, PO, l 13:06: Daily, 0 [place] 00 Refill(s) 0.4 ML Yes 40 mg, Memoria Enoxaparin 5-16 SUB-Q, l sodium 100 13:03: Daily, Maira nn MG/ML 00 please Prefilled take only Syringe for 14 [Lovenox] days as per Dr. Larsen, X 14 day, # 1 box, 0 Refill(s), Pharmacy: [id number], please give enough for 14 days Doxycycline Yes 100 mg, Mem oria Monohydrate 5-16 PO, l 100 MG Oral 13:03: [id number], X [place] Capsule 00 7 day, # 14 tab, 0 Refill(s), Pharmacy: [facility][id number] Doxycycline No Notes: Rickie lasha 5-16 (Same as: l 13:02: Vibramycin Gera 00 ) No milk/antac ids/iron. Albuterol No Notes: Memori a 0.833 MG/ML 5-16 (Same as: l / 02:36: Duoneb) Gera Ipratropium 00 Orange 0.167 MG/ML Inhalant Solution [DuoNeb] Zofran No Notes: Memoria 5-16 (Same as: l 00:08: Zofran Gera 00 ODT) Magnesium No Notes: Memori a Oxide 5-15 (Same as: l 16:41: Mag-Ox [place] 00 400) Magnesium oxide 180yf=241j g elemental magnesium Dose=____m g magnesium oxide (___mg elemental magnesium) Enoxaparin No Notes: Memor ia 5-14 (Same as: l 15:06: Lovenox) Gera 00 calcium No Notes: Memoria gluconate + 5-14 WASTE: F/P l Sodium 15:00: - Sink; E [place] n Chloride 00 - 0.9% IV 100 Municipal mL Trash Bin Protonix No Notes: Memoria 5-14 Tablet l 14:00: should not be chewed or crushed. (Same as: Protonix) Omeprazole No 40 mg, Memor ia 5-14 Route: PO, l 14:00: Drug form: DRC, Daily, Dosing Weight 53.636, kg, Start date: 04/08/19 9:00:00 CDT, Duration: 30 day, Stop date: 05/07/19 9:00:00 CDT Lovenox No Notes: Memoria 5-14 (Same as: l 14:00: Lovenox) Docusate No Notes: Memoria Sodium 50 5-14 (Same as l MG / 14:00: Senokot-S) dayana, 00 Equiv. to [facility] 8.6 MG Sara-Colac Oral Tablet e. Amlodipine No Notes: Memor ia 5-14 (Same as: l 14:00: Norvasc) Magnesium No Notes: Memori a Sulfate 5-14 WASTE: F/P l 12:39: - Sink; E - Municipal Trash Bin Calcium No Notes: Memoria Gluconate 5-14 WASTE: F/P l 12:39: - Sink; E - Municipal Trash Bin Dilaudid No Notes: Memoria 5-14 (Same as: l 12:24: Dilaudid) Vancomycin No 2001 mg: Me moria 5-13 infuse l 23:00: over 2.5 hours For adult patients only: Round to nearest 250 mg per Medical Staff approval calcium-vit No calcium-vi Memoria oropeza D 500 5-13 tamin D l mg-1000 22:00: 500 Gera intl units 00 mg-1000 Gummy intl units Gummy, 1 chew tab, Drug form: MISC, Route: CHEW, BID, 04/07/19 17:00:00 CDT, Duration: 30 day, Stop date: 05/07/19 9:00:00 CDT Miralax No Notes: Memoria 5-13 Dissolve l 22:00: in 8 oz of Gera water or juice. (Same as: Miralax) Calcium No 4 tab, Memoria Carbonate 5-13 Route: PO, l 1250 MG / 22:00: Drug Form: Kenneth garcia Cholecalcif 00 TAB, mary 200 Dosing UNT Oral Weight Tablet 53.636, kg, BID, Start date: 04/07/19 17:00:00 CDT, Duration: 30 day, Stop date: 05/07/19 9:00:00 CDT Calcitriol No Notes: Memor ia 5-13 (Same As: l 22:00: Rocaltrol) Sucralfate No Notes: March emoria 5-13 interfere l 18:00: w/enteral [place] feeds - Take 1 hr before or 2 hr after antacids, dairy pdt, meals & minerals - On empty stomach. For patients unable to swallow tablet, dissolve in 10mL - 30mL of water or juice and stir before giving. 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 Dose: ;Delay: ;Basal: Naloxone No Notes: Memoria 5-13 Same as l 15:14: Narcan Naloxone No Notes: Memoria 5-13 Same as l 15:01: Narcan Saline No Notes: Memoria Flush 0.9% 5- Same as: l 15:01: BD Posiflush Sterile 1/2NS + KCL No Notes: Rickie lasha 20mEq/L - PREMIX IV l 1000ml 15:01: - Do Not [place] (Premix) 00 Alter 1,000 mL WASTE: F/P - Sink; E - Municipal Trash Bin Ondansetron No Notes: Rickie lasha 5-13 (Same as: l 15:01: Zofran) [place] 00 MEDICATION WASTE Product Size: 4 mg Product Wasted: ___ mg Dulcolax No Notes: Memoria Laxative 5-13 (Same As: l 15:01: Dulcolax, Gera Correctol) (Do Not Crush) "Do Not Crush" Diphenhydra No Notes: Rickie lasha mine 5-13 (Same as: l 15:01: Benadryl) [place] Aluminum No Notes: Memoria Hydroxide 5-13 (aluminum l 40 MG/ML / 15:01: hydroxide- H [place] Magnesium 00 magnesium Hydroxide hyd- 40 MG/ML / simethicon Simethicone e 4 MG/ML 400-400-40 Oral mg/5ml 30 Suspension ml ud RONEY) Promethazin No Notes: Do M emoria e 5-13 not give l 14:49: IV push. (Same as: Phenergan) Ondansetron No Notes: Rickie lasha 5-13 (Same as: l 14:49: Zofran) MEDICATION WASTE Product Size: 4 mg Product Wasted: ___ mg Labetalol No 10 mg, 2 Rickie lasha 5-13 mL, Route: l 14:49: IVP, Drug form: INJ, Q5Min, Dosing Weight 53.636, kg, PRN Elevated BP, Start date: 04/07/19 9:49:00 CDT, Duration: 5 doses or times, Stop date: 04/07/19 17:00:00 CDT Hydralazine No Notes: Rickie lasha 5-13 (Same as: l 14:49: Apresoline ) Push over 5 minutes Hydromorpho No Notes: Rickie lasha ne 5-13 Same as l 14:49: Dilaudid ondansetron No Route: IV, Memoria (ANES) 5-13 Drug form: l 14:45: INJ, ONCE, Stop date: 04/07/19 9:45:00 CDT phenylephri 2019-0 No Route: IV, Memoria ne (ANES) 5-13 Drug form: l 14:06: INJ, ONCE, Stop date: 04/07/19 9:06:00 CDT hydromorpho 2019-0 No Route: IV, Memoria ne (ANES) 5-13 Drug form: l 13:20: INJ, ONCE, Stop date: 04/07/19 8:20:00 CDT fentaNYL 2019-0 No Route: IV, Mem oria (ANES) 5-13 Drug form: l 13:15: INJ, ONCE, Stop date: 04/07/19 8:15:00 CDT midazolam 2019-0 No Route: IV, Me moria (ANES) 5-13 Drug form: l 13:15: SOLN, ONCE, Stop date: 04/07/19 8:15:00 CDT lidocaine 2019-0 No Route: IV, Me moria (ANES) 5-13 Drug form: l 13:15: INJ, ONCE, Stop date: 04/07/19 8:15:00 CDT glycopyrrol 2019-0 No Route: IV, Memoria ate (ANES) 5-13 Drug form: l 13:15: INJ, ONCE, Stop date: 04/07/19 8:15:00 CDT dexamethaso 2019-0 No Route: IV, Memoria ne (ANES) 5-13 Drug form: l 13:15: INJ, ONCE, Stop date: 04/07/19 8:15:00 CDT ePHEDrine 2019-0 No Route: IV, Me moria (ANES) 5-13 Drug form: l 13:15: INJ, ONCE, Stop date: 04/07/19 8:15:00 CDT rocuronium 2019-0 No Route: IV, M emoria (ANES) 5-13 Drug form: l 13:15: INJ, ONCE, Stop date: 04/07/19 8:15:00 CDT succinylcho 2019-0 No Route: IV, Memoria line (ANES) 5-13 Drug form: l 13:15: INJ, ONCE, Stop date: 04/07/19 8:15:00 CDT propofol No Route: IV, Mem oria (ANES) 5-13 Drug form: l 13:15: INJ, ONCE, Stop date: 04/07/19 8:15:00 CDT Lactated No Route: IV, Mem oria Ringers 5-13 Total l Injection 12:10: Volume: Maira nn IV (ANES) 00 1,000, 1000 mL Start date: 04/07/19 7:10:00 CDT, Stop date: 04/07/19 8:10:00 CDT vancomycin No Route: IV, M emoria (ANES) 1.5 5-13 Drug form: l gm 11:38: INJ, Start date: 04/07/19 6:38:00 CDT, Stop date: 04/07/19 7:38:00 CDT Vancomycin No 750 mg, Rickie lasha 5-13 Route: IV, l 11:36: ONCE, Dosing Weight 53.636, kg, Start date: 04/07/19 6:36:00 CDT, Stop date: 04/07/19 6:36:00 CDT, ABX Indication : Surgical Prophylaxi s vancomycin No Notes: Memor ia + Sodium 5-13 TIME l Chloride 11:00: CRITICAL Maira nn 0.9% IV 250 00 MEDICATION mL (Same As: Vancocin) For adult patients only: Round to nearest 250 mg per Medical Staff approval polymyxin B No Notes: Rickie lasha sulfate + 5-13 (Same as: l Sodium 11:00: Polymyxin Gerson n Chloride 00 B Sulfate) 0.9% IV 250 mL sucralfate Yes 1 gm = 1 Mem oria 1 g oral 4-22 tab, PO, l tablet 21:09: TID, # 120 Maira nn 00 tab, 1 Refill(s) Home Yes MULTIPLE Memoria Medication 4-17 VITAMIN, l 14:50: B12, IRON W/VITAMIN C, VITAMIN A PICKLE JUICE, Refill(s) 0 Naproxen No 220 mg = 1 Mem oria sodium 220 4-17 tab, PO, l MG Oral 14:46: PRN, PRN Gerson n Tablet 00 Pain, # 30 [Aleve] tab, 0 Refill(s) 200 ACTUAT Yes 1 puff, Rickie lasha Albuterol 4-17 INHALER, l 0.09 14:46: Q6H, PRN Gera MG/ACTUAT 00 As needed Metered for Dose shortness Inhaler of breath, [ProAir # 1 ea, 3 HFA] Refill(s) omeprazole Yes 40 mg = 1 Me moria 40 mg oral 4-17 cap, PO, l delayed 14:45: Daily, # Gerson n release 00 30 cap, 0 capsule Refill(s) amLODIPine Yes 5 mg = 1 Mem oria 5 mg oral 4-17 tab, PO, l tablet 14:45: Daily, # Gera 00 30 tab, 0 Refill(s) calcitriol Yes 0.5 Memoria 0.5 mcg 4-17 microgram l oral 14:44: = 1 cap, [place] capsule 00 PO, Daily, PT DOSE NOT WANT TO STOP TAKING PRIOR TO SURGERY D/T SEVERE MUSCLE CRAMPS, # 30 cap, 0 Refill(s) Calcium Yes 4 tab, PO, Rickie lasha Carbonate 4-17 BID, PT l 1250 MG / 14:43: DOES NOT Herm jacky Cholecalcif 00 WANT TO mary 200 STOP UNT Oral TAKING Tablet PRIOR TO SURGERY D/T SEVERE MUSCLE CRAMPS, 0 Refill(s) syringe Yes Status post 1{syrin Q30D 1 Syringe Herman with 7-12 bariatric ge} every 30 Method i needle, 00:00: surgery (thirty) st safety 3 mL 00 days. 22 gauge x 1 1/2" syringe cyanocobala 2019- No Status post 1000ug Q30D Inject 1 Herman min 1,000 06-06 08-26 bariatric mL (1,000 Methodi mcg/mL 00:00: 00:00 surgery mcg total) s t injection 00 :00 into the shoulder, thigh, or buttocks every 30 (thirty) days. HYDROmorpho 2019- No 1mg Take 0.[address] ne 4-12 11-05 tablets (1 [facility] - (DILAUDID) 00:00: 00:00 mg total) M edical 2 MG tablet 00 :00 by mouth Cent er every 8 (eight) hours as needed for up to 10 doses. Max Daily Amount: 3 mg vitamin A Yes 8000U QD Take 8,[address] 8000 UNIT 4-06 Units by [facility] - capsule 12:36: mouth Medical 36 daily. Center MULTIVITAMI Yes Take by [facility] N-MINERALS 4-06 mouth. [facility] - NO.55 12:19: Medical (CENTRUM 42 Center FLAVOR BURST ADULT ORAL) docosanol Yes Apply [facility] (ABREVA) 10 3-09 small [facility] - % Crea 00:00: amount to Medica l 00 areas on Center affected area of lips 5 times a day. albuterol Yes 2{puff} Inhale [address] HFA 3-01 puffs by [facility] - (VENTOLIN 02:26: mouth via Med ical HFA) 90 38 inhaler Center mcg/actuati every 6 on inhaler (six) hours as needed for Wheezing or Shortness of Breath. cyanocobala Yes 1000ug Inject [facility] min 3-01 1,000 mcg [facility] - (VITAMIN 02:20: intramuscu Med ical B-12) 1,000 24 larly Center mcg/mL every 30 injection (thirty) days. sucralfate 2015-11 Yes [facility] (CARAFATE) 2-14 Methodi 1 gram 00:00: st tablet 00 omeprazole 2015-11 Yes [facility] (PriLOSEC) 2-14 Methodi 40 MG 00:00: st capsule 00 amLODIPine 2015-11 Yes 5mg QD Take 5 mg Ho nagi (NORVASC) 5 1-18 by mouth Meth joyce mg tablet 00:00: once st 00 daily. calcitriol 2015-11 Yes TAKE 1 [place] (ROCALTROL) 1-16 CAPSULE BY Mo tressa 0.5 MCG 00:00: MOUTH 3 st capsule 00 (THREE) TIMES DAILY. FLUARIX 2015-11 Yes TO BE [facility] QUAD 1-06 ADMINISTER Methodi , 00:00: ED BY PF, syringe 00 PHARMACIST vaccine FOR IMMUNIZATI ON PREPOPIK Yes FOLLOW [place] mg-3.5 9-15 INSTRUCTIO Methodi gram-12 00:00: NS GIVEN st gram powder 00 BY in packet PHYSICIAN ADRIANO LEWIS Yes INHALE 2 Jad ston 90 9-08 PUFFS BY Methodi mcg/actuati 00:00: MOUTH 4 st on inhaler 00 TIMES A DAY NEEDED Immunizations Ordered Immunization Filled Immunization Date Status Commen ts Source Name Name Influenza 2019-09-[address] [facility] (Flublok)_0.5ml 00:00:00 Medical C enter Qiv_im_egg & Antibiotic Free Pf Vital Signs Vital Name Observation Time Observation Value Comments Source Systolic blood 2020-04-27 11:40:00 136 mm[Hg] [facility] Diastolic blood 2020-04-27 11:40:00 78 mm[Hg] [facility] Heart rate 2020-04-27 11:40:00 45 /min [facility] Body temperature 2020-04-27 11:40:00 36.39 Gianna [facility] Respiratory rate 2020-04-27 11:40:00 16 /min [facility] Oxygen saturation in 2020-04-27 11:40:00 98 /min [facility] Arterial blood by Medical Ce nter Pulse oximetry Body height 2020-04-27 08:12:00 160 cm [facility] Body weight Measured 2020-04-27 08:12:00 48.036 kg [facility] BMI 2020-04-27 08:12:00 18.76 kg/m2 [facility] Systolic blood 2019-09-03 13:08:00 138 mm[Hg] [place] pressure Diastolic blood 2019-09-03 13:08:00 76 mm[Hg] [place] [facility] pressure Heart rate 2019-09-03 13:08:00 71 /min [facility] Body height 2019-09-03 13:08:00 160 cm [facility] Body weight 2019-09-03 13:08:00 52.98 kg [facility] BMI 2019-09-03 13:08:00 20.69 kg/m2 [facility] Body temperature 2019-07-24 11:48:00 36.94 Gianna [place] [facility] Respiratory rate 2019-07-24 11:48:00 16 /min [place] [facility] Systolic (mm Hg) 2019-04-10 16:10:00 Rickie rial [facility] Diastolic (mm Hg) 2019-04-10 16:10:00 Mem orial [place] Heart Rate 2019-04-10 16:10:00 [facility] Respitory Rate 2019-04-10 16:10:00 Memori al [place] Temperature Oral (F) 2019-04-10 16:10:00 98.5 F [facility] [place] Temperature Oral (F) 2019-04-10 13:08:00 99.9 F [facility] Heart Rate 2019-04-10 13:08:00 [facility] Systolic (mm Hg) 2019-04-10 13:08:00 Rickie rial [facility] Diastolic (mm Hg) 2019-04-10 13:08:00 Mem orial [place] Respitory Rate 2019-04-10 13:08:00 Memori al [place] Systolic (mm Hg) 2019-04-10 08:21:00 Rickie rial [facility] Diastolic (mm Hg) 2019-04-10 08:21:00 Mem orial [place] Temperature Oral (F) 2019-04-10 08:21:00 99.4 F [facility] [place] Respitory Rate 2019-04-10 08:21:00 Memori al [facility] Heart Rate 2019-04-10 08:21:00 [facility] [place] Height 2019-04-07 11:30:00 160.02 cm [facility] BMI Calculated 2019-04-07 11:30:00 [facility]ori al [place] Weight 2019-04-07 11:30:00 [facility] BMI Calculated 2019-03-17 17:29:00 Memori al [place] Weight 2019-03-17 17:29:00 [facility] [place] Height 2019-03-17 17:29:00 160.53 cm [facility] [place] Procedures Procedure Date / Time Performing Clinician Source Performed REPORT OF PROCEDURE - 2020-04-27 10:28:11 Tej Ovalle [facility] - [facility] ENDOSCOPY,SMALL INTESTINE 2020-04-27 09:00:00 Tej Ovalle [facility] ENTEROSCOPY,BALLOON 2020-04-27 09:00:00 Tej Ovalle [facility] INTESTINE-UPPER UPPER ENDOSCOPY,DILATATION 2020-04-27 09:00:00 Tej Ovalle [facility] REPORT OF PROCEDURE - 2019-12-16 11:26:30 Tej Ovalle [facility] UPPER ENDOSCOPY 2019-12-16 09:00:00 Tej Ovalle [facility] ENTEROSCOPY,DIAGNOSTIC 2019-12-16 09:00:[address] [facility] REPORT OF PROCEDURE - 2019-11-19 13:48:04 Davide [facility] TISSUE EXAM 2019-11-18 12:11:00 Davide [facility] UPPER ENDOSCOPY 2019-11-18 11:00:00 Davide [facility] UPPER ENDOSCOPY,BIOPSY 2019-11-18 11:00:00 Davide [facility] RHYTHM STRIP - SCAN 2019-10-02 10:10:38 Provider, [facility] BASIC METABOLIC PANEL (7) 2019-09-30 03:03:00 [facility] MAGNESIUM 2019-09-30 03:03:00 [facility] CALCIUM, IONIZED 2019-09-30 03:03:00 [facility] CBC W/PLT COUNT & AUTO 2019-09-30 03:03:00 [facility] BASIC METABOLIC PANEL (7) 2019-09-29 04:04:00 [facility] MAGNESIUM 2019-09-29 04:04:00 [facility] CALCIUM, IONIZED 2019-09-29 04:04:00 [facility] CBC W/PLT COUNT & AUTO 2019-09-29 04:04:00 [facility] CT ABDOMEN/PELVIS WITH IV 2019-09-28 23:40:00 Rafael Cole [facility] LIPASE 2019-09-28 21:48:00 Rafael Cole [facility] HEPATIC FUNCTION PANEL 2019-09-28 21:48:00 Rafael Cole [facility] XR CHEST 1 VIEW 2019-09-28 19:52:[address] [facility] PORTABLE/BEDSIDE Medical Center BASIC METABOLIC PANEL (7) 2019-09-28 04:51:00 De La Torre [facility] MAGNESIUM 2019-09-28 04:51:00 De La Torre, [facility] LIPASE 2019-09-28 04:51:00 Haseeb Ovalles [facility] CBC W/PLT COUNT & AUTO 2019-09-28 04:51:00 [facility] CALCIUM, IONIZED 2019-09-28 04:50:00 [facility] REPORT OF PROCEDURE - 2019-09-27 11:32:49 Tej Ovalle [facility] [place] ERCP 2019-09-27 11:15:00 Tej Ovalle [facility] TISSUE EXAM 2019-09-27 10:56:00 Tej Ovalle [facility] ERCP,BALLOON DILATATION 2019-09-27 09:00:00 Tej Ovalle [facility] PROCEDURE W/ C-ARM 2019-09-27 09:00:00 Tej Ovalle [facility] ERCP,BALLOON SWEEPING 2019-09-27 09:00:00 Tej Ovalle [facility] BASIC METABOLIC PANEL (7) 2019-09-27 05:21:00 Wil [facility] MAGNESIUM 2019-09-27 05:21:00 [facility] 2019-09-27 05:21:00 [facility] CBC W/PLT COUNT & AUTO 2019-09-27 05:21:00 [facility] BASIC METABOLIC PANEL (7) 2019-09-26 04:43:00 Wil Antoinette [facility] MAGNESIUM 2019-09-26 04:43:00 Wil [facility] CALCIUM, IONIZED 2019-09-26 04:43:00 Wil [facility] CBC W/PLT COUNT & AUTO 2019-09-26 04:43:00 Wil [facility] CALCIUM, IONIZED 2019-09-25 12:27:00 De La Torre, [facility] BASIC METABOLIC PANEL (7) 2019-09-25 12:27:00 Wil [facility] MAGNESIUM 2019-09-25 12:27:00 De La Torre, [facility] REPORT OF PROCEDURE - 2019-09-25 09:49:14 Davide [facility] - ENDOSCOPY URL [facility] ECG 12-LEAD 2019-09-25 00:28:19 Unknown, H[facility] COMPREHENSIVE METABOLIC 2019-09-24 16:22:00 Wil [facility] CALCIUM, IONIZED 2019-09-24 16:22:00 [facility] PROTHROMBIN TIME/INR 2019-09-24 16:22:00 [facility] CBC W/PLT COUNT & AUTO 2019-09-24 16:22:00 De La Torre [facility] [place] CURING ROOM SUPERVISOR IN OR 30 2019-09-24 13:55:00 Davide [facility] - MINUTE INCREMENTS [facility] TISSUE EXAM 2019-09-24 13:11:00 Davide [facility] UPPER ENDOSCOPY,FNA 2019-09-24 12:30:00 Patricia [facility] - W/ULTRASOUND [facility] PROCEDURE W/ C-ARM 2019-09-24 12:30:00 Davide Mohamed [facility] UPPER ENDOSCOPY,BIOPSY 2019-09-24 12:30:00 Patricia [facility] CBC WITH PLATELET AND 2019-09-03 13:48:00 Ap Reyes n [facility] DIFFERENTIAL AMYLASE LEVEL 2019-09-03 13:48:00 Ap Reyes [facility] LIPASE LEVEL 2019-09-03 13:48:00 Ap Reyes [facility] MRI ABD/PELVIC EXTERNAL 2019-08-21 11:09:00 Douglas Rodas [facility] STUDY AMYLASE LEVEL 2019-07-24 12:17:00 Douglas Rodas Meth odist LIPASE LEVEL 2019-07-24 12:17:00 Douglas Rodas odagnes HEPATIC FUNCTION PANEL 2019-07-21 09:20:[address] [facility] [address] ABDOMEN PELVIS W 2019-07-11 11:34:25 Douglas Rodas CONTRAST POC CREATININE 2019-07-11 10:20:00 Douglas Rodas odagnes ESTIMATED GFR 2019-07-11 10:20:00 Douglas Rodas Meth odist ZZFL UGI W AIR W KUB 2019-06-25 10:35:44 Douglas Rodas Hernia repair 2016-01-25 06:00:00 [facility] Parathyroid gland 2016-01-10 06:00:00 [facility] ermann operation Gastric bypass operation 2015-08-19 05:00:00 [facility] orideya Boss Total hip replacement 2013-08-18 05:00:00 Thuy Srivastava Exploratory laparotomy 2012-11-26 [facility] - 2012-11-26 00:00:00 Thuy Srivastava female Nasal endoscopy with nasal 2007-11-26 00:00:00 M emorideya Boss polypectomy Repair of cystocele 2006-11-26 00:00:00 [facility] Chole[facility] 2005-11-26 00:00:00 [facility] Lysis of adhesions of 1999-11-26 00:00:00 Thuy Srivastava abdomen Appendectomy 1998-11-26 00:00:00 [facility] Oophorectomy 1997-11-26 00:00:00 [facility] Lumpectomy of right breast 1993-11-26 00:00:00 [facility] [place] Hysterectomy 1983-11-26 00:00:00 Jyoti baker Tubal ligation 1981-11-26 00:00:00 [facility] Her baker ORIF - Open reduction and 1965-11-26 00:00:00 Mo morideya Boss internal fixation of fracture CTR - Carpal tunnel [facility] Her baker release Plan of Care Planned Activity Planned Date Details Comments Source Future Scheduled Test 2020-11-26 COLONOSCOPY [place] 00:00:00 SCREENING [code = COLONOSCOPY SCREENING] Future Scheduled Test 2020-06-26 INFLUENZA VACCINE [place] 00:00:00 [code = INFLUENZA VACCINE] Future Scheduled Test 2014-11-26 Screening for [place] [facility] 00:00:00 malignant neoplasm of cervix (procedure) [code = 834726215] Future Scheduled Test 2008 BREAST CANCER [place] [facility] 00:00:00 SCREENING [code = BREAST CANCER SCREENING] Future Scheduled Test 2008 SHINGLES VACCINES [place] 00:00:00 (#1) [code = SHINGLES VACCINES (#1)] Future Appointment 2020-06-01 Tej Yamile, [address] [facility] - 08:00:00 [facility]; [facility] Medical Ce nter [address], [place] [address] Future Appointment 2020-06-01 Fiorella Parker MD[facility] - 08:00:00 Tamela Flores; Medical Ce nter [address], [place] [address] Encounters Start End Encounter Admission Attending Care Care Encounter Source Date/Time Date/Time Type Type Clinicians Facility Department ID 2019-04-07 Inpatient [facility] 7500 05:16:00 [facility] 2020-02-25 2020-02-25 Orders Doctor CECY [id number] 00:00:00 00:00:00 Only Unassigned, DARIELA [id number] Jenner [facility] [id number] 2020-02-04 2020-02-04 Office Osman, [facility] [id number] 10:55:10 12:13:34 Visit Radha Isaac [id number] [place] [id number] [facility] [id number] [facility] 2020-01-16 2020-01-16 Office ABDULAZIZ Ovalle [id number] 10:11:05 16:24:09 Visit Tej Conroy AMBULATOR [id number] Y [id number] [id number] 2019-12-11 2019-12-11 Office ABDULAZIZ Ovalle [id number] 10:35:46 12:49:39 Visit Tej Conroy AMBULATOR [id number] Y [id number] 2019-09-15 2019-09-15 Office ABDULAZIZ Savage [id number] 09:52:15 16:17:38 Visit Patricia AMBULATOR [id number] Y [id number] [id number] 2019-04-07 2019-04-10 Outpatient ISABELLE Larsen [facility] [id number] 05:16:00 14:35:00 Shaun Jane Huerta Results Test Description Test Time Test Comments Results Result Comments Source Tissue Exam 2019-11-21 10:52:00 Test Item Value Reference Range Interpretation Comme nts Case Report (test code = 104) Surgical Pathology Report Case: [id number] Authorizing Provider: Patricia Savage Collected: 11/18/2019 Thong Boland MD Ordering Location: [facility] Endoscopy Received: 11/18/2019 1356 Services Pathologist: Brenda Soto MD Specimen: Biopsy, Jejunum DIAGNOSIS (test code = 3220) y9ktgPRdROCvt4pwXBKdoXMbBgDdEjJgGdUdDq pc uFZfBPeomxEsPXaih8ZxI2OnPoJmUGufdsPeSDPw DnlplezdQEZhZDV7kiLxCHTvOUyeHWBgNUsaUb2v qWPkbGflAgUhDGXib0ctbfNDvbtmkOx1d0pfDIGv HqX4dNGeLLxiR7xoalKpnOMdKBYmBPr0lR01ZXAq uW8eqPDrQAnfhjQfPwR7YFmhMWWmKqC4ZJEuoALx HPQdB4bxOHMhXBreOBZrKTjgsHYsTRB4gIstw2G4 mXMavPNmnMipVgClGoVrKNFSc3ZnPEh3vCdzW1Et KLTpLxR5vIAvBYCiOZzpVFTyIXRzmwT9iU52RKlh fkW0lSRld4Aev32mf826yB9bjPUcQVB5TFIfNJJm hTNaVYLlZWI0EIAczXXeO7k5CsNjaMDhF4Y5VxBu sCPxE0H4KsOrbRAwM2X6IvSupTTuPSCzzUAkWw5r kJUlsNNbjx6kkq88SSP1m0JoyCncOJA2RTX0LgAx Am1ydMDqARKrQR6xTrRleVIaIBRtto32zKxxAXem dqEqlN2sRjIjNYQivNBlLJIiXE7rvXObOPJewV9l xjasJJHvLxQqfiacZJIijXwgdcVzQc1nuVnuHOI4 BOgeC9jotZ8oYuJ3HJecX3gqeB6rBQf7QObakXW7 MLZagF1zFB1hhzrnl5mjWbZrQS3htqyoa2xkSsGr GS3ywuq6t6liTaJuTV1lnmgij4plOdVrQSchUBDe rqhpSUUey6DeldgtRHBvu4NkV6MfqBgmT92uqBxt V62sGESpgYdikS5rvLkufR7wLtThJwFoHKvvzIez aJPgdrfsKSkjgsBsFHurcldvSDUlLVqeM2ugBtRm HDGmgCcfMSlqj3SqCCYyMZCtMlVaUmFPJB0ALYnq PYTKHZ6KD88IHSGVWDZMRFVTS7CWAJqbpGKxVXPc NBGPC6SMZVZDYQDBLnYvJW3HFVJYAVHeVFAMI1CM XBxXFDqfV5PTFfMQTDRLK87lDKtCL7QUCISyezCv TMYEXTePIVkCJJVHL3BgBSPHTOyRNZ4FRWymWEBr UNokVQM3j8qulCXiYQQspUOhFVMjIPvcoiXbWLUk KrdwabhvXTQuXFF4avDsCYZgDFipCNZsOSssXc8q yLHqvDenLdXlYPJys2vrsbJPjrydlLs6e5dvLGPw YbE1yYIxZGvlT6gkliZzoWLsTOWeOSm3tG37YLDo tL8bgFHhZDbpkyOnQzZ9UFqkWXFbMzN7HTOiiVGn FQHcF9giACJuFNcbJACbGQmqtRHmVXT2aPmsn3W6 sFMbmNHkvTvfTmDmYsClSmAXw3PlXIx1mLdnX6Eo LDVpAvG6sATiVUYrIZikQIBiJLCiieS2jG72QPol lkZ6eBHhy1Exn50is529gD7lbTQvNUL6YKThNUId aWCrCEMhBXJ6XUWpqSUbN6nnJGGeWO0nnzelIDew BJzyUGFwqNJ1BGFecJAlP2AtZBCgYPecERKstuu0 NrNlKn2mqVNwyZhbLHszu5uoh3rhgQOdRxl1ZZCj UoJtQbxlCYbpc4Vve1rqDXHjvh3sMHF5jQHumNoq r7P3fYTiDFXqvVFiGUPmXI9jhHPuKUGthY8ufqoj EYSoWjTxtlyiXINlbPqvmaTtWo3cvEacOHD1WLll S3vppA6dZqH8TZsdA6axjC3nQXb0KDdiQUGhrXJ0 ydK4DPPqcXKyS9DvdC9rRWFsDL6tzga4s9buQRO0 MTtgZDLhDfA9uhN5VSCfmJZiAOQokWvlIZuoe427 PAZ6LgQwFRKxd6UhS8XsoUvjJ48beWyoB84xUUKc xQlbtQ1ecAdleE1iGcHuZhNnBTqgtEtgHA2qKFPq T8kmiCMxHSKyRPXdP1yhKwKwfE5vyJyvKWgninUt EKEbUmd2QMXkgIJbTDWaPyn7YKFzKPTwK10oclmq WNW4lS5ui9nzc1ZqPLvuTZL1HYFii86pMQfcfwD4 MJmyDv2hSUJeCBDiQPaxTUV7lR== CPT Code(s) (test code = 3357) i5kviXExAEEouBTwRwJdSXIuRRIsy4etQINg bGFu EpOqToLuLmCtWzpowAAgMRVzQvKqd6rkd030zUMw v2pgOTXzPzM5iMDqODQygIXgB083h8sak5iqneFk wFN3BVXlRTM6JFamqmWszgL3CVyspICgPrN7KPam ldUjPMlexbCrnwLcDbw0SZBvG036KQU3dUwrn1hd ZHH5PXWiWMBzYkBsNw0rlWCmO860DHOeDQMRLAUg rUs9RJVnkiUfljAvbQMMf361P817r6itBTSegwRu gFvJrpdpf9hcO339KIWbcWXunsSmFnQoBILzwNLz eMZ9XSFeRO7dmpgdAhBnTK9xttnuThXoRK6mvyp3 AoFpTW3aujysHkLcEKkmSYXqdjhqHMDsm1Emyqva XW4vA8Sfn0T4iQ8mrKChUFLdvGHbHlMuFPJnjf2z hGShTPvvv9NdRKV0fpN8pYPbyBNfCDZsYX71Aocl j9MyPalaCWN8SUEaleGly5Nvh0naRyXorbDsE4gx D1BnVYZjDJRxGBRhWmZdewGcz1Bcs4MnxTOkkLc5 w8bhSPPkHVGhkAaqx6aqYQY8GHAlS8M9bULlq7do PKjlVBAocJD6koifCIacYBGjoqG8uftcSVswDVEx cYI1eqfaEBidULAmNqG2khuoWXrjUGGtRWU8FFop t826TEX4WWkyDlmjEYfmAODdjvIiwpVzgYeaKVDo ENYhDMjcZUTgRTndBHBgUTHnUtYmcLbbvNyduC0o OrOpIsRqWCrdBO9yWOMjY6udhWTcALQcHBRzK7jv VjMitV4mqDjzJLsyofTcWVw9GwA6YHUexk4= CLINICAL HISTORY (test code = 3356) j4jnoUZmREOogQNgQfZjCDGvAQKyv1b cZGVmbGFu YqLbSuLuLaVgWosrgZNwAQCkFuLvf8nns281iMJk h1dqWJXfTaZ0jUDkMSSboPYkY683e0oqj7yqmcQm yHG5KYZyAGO5NRvrlaApcmH8YUppoKHaOnQ1UZjd goDtWUkodhXuivSnQxa7TAPwF990RUS9ySfhj9uf ZKW5PXPlFWBvKgQgNk2qhSYtQ354LBUzPVXGFUKe zOb5OFZhskZgcgErwDZDh979B150g7xtSISjbhUb dQbRlduhy9unS506MWWrwJMhihYwEkNeXLFimVPb lLM8GOKvMI6wvuhpUfVzYC8nsnvtCaFcKR3uxpy2 QaEwJX4ddnxlUpUoYFbePSGjjgbmNKRcq2Tqgaku ZM8hY5Ryd1M0cX1lfDDcNTLzjVUcTyHjQRPtte2r qCJyUOqsa2XlZEX9zrX9aOUfnMTsICHpLW73Efpc t3QkUbzlPGT3AIOqyhPub0Rpp7kwOeLrsaTpJ1cv F4ThLCFsSMBjWNLrMaRlcpHmx3Ulb7AtuTTzwWq2 l7pxDWLqVWJfsIuur9jwCPF7JNQuG1H2zDWgg3em IGevOSNlyIF7soklPWpsTGEbnyP0oylxNVzjAFEg mEF0dyqpNCqhORXcNoD7gbchZSphWSRtETZ1WAai f876YBF2PDjcOmuyFJwvPBYgmwLyqgXpkToqNBXj QGFmQJjbIEJzCKrmWLScHAPzIpQgbJmjjVbemW0k JuTwWgLzXPlzZS4nHFXvU5dkdXQmIAQsIJElM6ra StJqfE7odSiqFXmrtwSxAXDttFLxTRDjOE9mV35f oCU3eBCkVTB5KA94HLKthR98PWpjgONzkW== SPECIMEN SOURCE (test code = 3377) c2wjsPDuJAOgcFIwZnApZWFnKBDde1hw ZGVmbGFu QaBpNxWeRkJvEhkkrTVoQDHvPlIhb3nzj803iUKf g3fjBMEnTeM5zUGmSNUymBDuW358n7zbu6alvoGo wHZ9VTRxJGO2UDhzboVolvU7HMigaONxPtV3XKjn isEqGBwhvfPprzZlSgg4PJByY759ZLV6fOdeb9wx GNT5OSJdEUIsZjCiNn5xsFHfQ106JLYfPIZFDLKi cPh5NDDkjqHegoWzpQVRv419P111n2ciSXOfezId zYkXlpfso9pzN133GISdrFEjuwTsQbBeGKPoqKBh qTU9XVPzFR2vnsqaZeEqQH0turehMpYfPU4syim1 DxYpHK5flrvePxFzUQlfOITwvyjtUOArb2Dhtgwj VH7zA8Fea0K2hC0byUEpWMVyvMTlPxTzLBQfuo0v dULwVKcjq2KbECB6ipI0uQHtaJWtPYBmYF07Nymn q0KlMrsjLJG3IPLarjNhk7Wxd6skNrMdhjHjM0be Z7DhSQYnUJXdNOWuLsIzznLxf7Ijy3UyvCQafEp4 v2gaPKDgUJVexBpvy8avOHH9ABYtC9D4oTBmt7wn ACgpQJWonTR9hztfUHtjNIRxqvY7dfxqPMltWEMr tUH1ntjtUAvjTNIpGhL8bgkdWBpxDATrMCP6MRjj d125WFL4HGjmRciyAXmsUQOmckUbkkFtsMfnLUFl RQFtZUngVGThVEboPWWxELOiMfGajAjscZduyN9t RwFiWyLkBZdiBX8lCMMwK0ajgITiKEKuBLMwN9le PsVseY4adNsgUHapkiMhWSWlf3GouMCvQBz6yfNc XHBhcn0= GROSS DESCRIPTION (test code = 3366) s4eeqGDjDSBnvIFuEqIuGUIvKDPyi6 lcZGVmbGFu BsSkXsKxZpUkLoxclZNaQFLaKeSel3mdp733pZOq y0ibCOItYvE6bVQuGXKasKXdC353h5wrh9wbndHz eXI9SXBuOPF6JTpfrfAqpsJ1CQdumZRxZpD4RUdr krJcTQqijsVuatXiLxt8REIvA575NUP3iXans9iy BDI8JOAqBSJeKdYzVj2oiVLrN629LODoXFQNDXFk oMj0JEZkliDudsPmmDSJj846X303d4sxWWRdkxPj vZfQsmbyr9diL764HEDriWGhdvZeIuKqLSSfkJNf kNM6FGCkOM8lnmjeQnXsKZ6phgzgVbPlUY5dyrp4 IeLeFJ7eyrbwEtHkYCbpQWJcaakvULJts7Abjjaa GI2rC6Bqv3A8nW0zuQTwWAKmvRIoXvNlXIObtu7k cALqDBppq9HeUUJ5opU6uPTqoTUzXASjIQ21Ceii n0WbWabnLOS6FVFwbfCin2Ssb2yhKzLcnuQrI3ou W9DiOCCeZMPtODZpOxOhyzUud9Gam9IuqWOawXs6 r0rrBNUmHPVabMcyr7jnXUD8BGAmY4L3iKJop0gn HSauQDArpHE7gwhvNTqaXDBfusD4xxpiCQxdZPGg cIP8kyqaLWglMQPlSiQ3wzybBYzzQTReOUA7QMti z271NTJ1ZYzlXxvhSJnlMBWdvkIbalMfyUtlPMNr GKThHGusTKWlDMjaELJaQGWyKzKxbXkxoTkdbG5a PdMgQhXuIMukYA7wIAVgE2ploRMmUTOiZPAuY1yu QhEstS1tsDxhYLqkuuUlZZMnH4IqfkJiJBwpPSVs sb2epVwuJMmudJsxrPL9cRTmsSGszjHlvz2jzMfz sjJqbgLfaWQhKWleDEWaGEg1qgRtULEgZQS3l84d JoFiW02mdhQsQM4dNYP2ajvyAuGpLfUgL782HDL9 Ka7anKJtNMOtxnLkpkLoyJEdupAwQIXaWUZ9WXDk YWJlbGVkIEEuXHBhcn0= MICROSCOPIC DESCRIPTION (test code = b4vzpZHzWFNjnSAdGgRkMZTpXIPzh7 [place] [address]) XtShGtZyNbWoGcxpxEQoCMJvWfYct6sbh523hFWc y2xrYOUuCrE3gBPuGCIcgADoD745g8hsd2rtdoDc hJS1MNJmUQW1WAzxsnAnsgL5RLrsqFOqEbT1WZpv eiDkRJzuvhPynvEyGwa8EOSdY990NEV9uMxxt6rb TZC1KUToRQAvBpUwSb6osQSqO583WMRnWTAIXKCr aZz9YDOrhxRzasEchUXQu149D627b2urEHRajlVe rTtIqgqbp7ghO707FJUpcJCjlnGxIfQrUUIynRXq ySC5MYBoNF3aayrtRoHeRP7ubdznLrUjQX9zkmw1 XlZzQN2kwazkGdHtCCjwPDWiyapePZMob7Fvvjpo RC7gW0Sbx4O3vI9qlDIyYCSzaMLgDqTbLVEqnv7z tOXtYHkua8RuRHV2eiW5xIKltEGuJJOvIO14Aenp j8ZpHjztVKG2GZXyrnFcc7Lec8diQwBsyiYlB8kr P3XjLUMuQBCgXRYiXjVqecSxr1Rul7NstOTgyVa1 d1pjVAGkXKYbzWigd1ukVQQ7IVKlE9P3sZOtx7fs SFoxLVFyfFZ7ajtnNUxaUQErtvC8vprsZMwoSJUz wMI8qcqcNZwnAZOzMhB4udbwIQzePOZwYCQ1TAnc m197ENM5GTwmOpmsTWreQBLwhvZxwzYgtQxtTHKx WIEtNSjlWMMqRYfkDKYsABLiEzFakPnizYoepJ5b GdYaFrUlMVthWO8aWLDwG7tctBAgSLBfCGRsF7qp FrFuoR9mfQcyGGfobtCzZITZAqISBt5CDHfnPZJ1 [facility] [id number] 10:52:00Surgical Pathology Report Case: [id number] Authorizing Provider: Patricia Savage Collected: 11/18/2019 1211 MD Krystian [facility] Endoscopy Received: 11/18/2019 1356 Services Pathologist: Brenda Soto MD Specimen: Biopsy,Jejunum JEJUNUM, ENDOSCOPY WITH BIOPSY: - ULCERATED AND INFLAMED MUCOSA WITH GRANULATION TISSUE - NEGATIVE FOR MALIGNANCY Signing Pathologist Direct Phone Line: [phone] signed by Brenda Soto MDon 11/21/2019 at 10:52 [id number] endoscopy with stent removalBiopsy jejunumReceived in formalin with patient information and labeled jejunum are two fragments measuring 0.3 cm; submitted entirely incassette labeled A.PERFORMEDTISSUE [id number] 14:28:00Surgical Pathology Report Case: [id number] Authorizing Provider: Tej Ovalle Collected: 09/27/2019 1056 Ordering Location: [address] Received: 09/29/2019 0829 Service Pathologist: Huong Felix MD Specimen: Common Bile Duct, Distal CBD A. BILE DUCT, DISTAL COMMON BILE DUCT, BIOPSY; - NO MALIGNANCY IDENTIFIED. - DEEPER LEVELS EXAMINED. - SEE COMMENT. Signing Pathologist Direct Phone Line: [phone] signed by Huong Felix MD on 09/30/2019 at 2:28 PMPreliminary result electronically signed by Huong Felix MD on 09/29/2019 at5:45 PMThe biopsy consists of smooth muscle fragments, fibrous stroma and benign mucous glands, consistent with bile duct wall. Biliary epithelium is not present. Clinical and cytological correlation is suggested.[id number] and postop diagnosis: stricture of bile duct Common bile duct, distal CBDReceived in formalin labeled with the patient's name, accession number and "common bile duct" are three graytissues averaging 0.1 cm in greatest dimension. The specimen is submitted in toto in cassette A1. KM/pl [facility], Department of Pathology, [address] [place] [address], [facility], [facility] of [facility], [address] [place] [address], [facility], Department of Pathology, [address] [place] [address], Oqwnq Metabolic [id number] 04:28:00 Test Item Value Reference Range Interpretation Comments Sodium (test code = 142 meq/L 134-913 5386-2) Potassium (test code = 3.9 meq/L 3.5-5.1 2823-3) Chloride (test code = 104 meq/L 98-107 2075-0) CO2 (test code = 32 meq/L 22-29 H 2028-9) BUN (test code = 4 mg/dL 7-21 L 3094-0) Creatinine (test code = 0.76 mg/dL 0.57-1.25 2160-0) Glucose (test code = 106 mg/dL 70-105 H 2345-7) Calcium (test code = 8.4 mg/dL 8.4-10.2 77243-6) EGFR (test code = 77 mL/min/1.73 [place] [address]-0) NOT ACCURATE CREATININE CLEARANCE IN PREDICTING GLOMERULAR FILTRATION RATE . ESTIMATED GFR I S NOT APPLICABLE FOR DIALYSIS PATIEN TS. Lab Interpretation Abnormal (test code = 76475-9) [facility]Magnesium[facility] 04:28:00 Test Item Value Reference Range Interpretation Comments Magnesium (test code = 24101-0) 1.5 mg/dL 1.6-2.6 L Lab Interpretation (test code = Abnormal 41296-4) [facility]MAGNESIUM2019-[facility]-05 04:28:00 Test Item Value Reference Range Interpretation Comments MAGNESIUM (BEAKER) (test code = 1.5 mg/dL 1.6-2.6 L 627) BASIC METABOLIC [id number] 04:28:00 Test Item Value Reference Range Interpretation Comments SODIUM (BEAKER) 142 meq/L 136-145 (test code = 381) POTASSIUM (BEAKER) 3.9 meq/L 3.5-5.1 (test code = 379) CHLORIDE (BEAKER) 104 meq/L 98-107 (test code = 382) CO2 (BEAKER) (test 32 meq/L 22-29 H code = 355) BLOOD UREA NITROGEN 4 mg/dL 7-21 L (BEAKER) (test code = 354) CREATININE (BEAKER) 0.76 mg/dL 0.57-1.25 (test code = 358) GLUCOSE RANDOM 106 mg/dL 70-105 H (BEAKER) (test code = 652) CALCIUM (BEAKER) 8.4 mg/dL 8.4-10.2 (test code = 697) EGFR (BEAKER) (test 77 mL/min/1.73 ESTIMA IVY GFR IS code = 1092) sq m NOT ACCURATE CREATININE CLEARANCE IN PREDICTING GLOMERULAR FILTRATION RATE . ESTIMATED GFR I S NOT APPLICABLE FOR DIALYSIS PATIEN TS. Calcium, [id number] 04:11:00 Test Item Value Reference Range Interpretation Comments Calcium, Ion (test code = 1994-3) 1.09 mmol/L 1.12-1.27 L pH, Blood (test code = 27549-4) 7.41 Lab Interpretation (test code = Abnormal 57368-1) [facility] HospitalCALCIUM, [id number] 04:11:00 Test Item Value Reference Range Interpretation Comments CALCIUM IONIZED (BEAKER) (test 1.09 mmol/L 1.12-1.27 L code = 698) PH, BLOOD (BEAKER) (test code = 7.41 1810) CBC with platelet count + automated [id number] 03:42:00 Test Item Value Reference Range Interpretation Comments WBC (test code = 6690-2) 5.4 3.5- 10.5 K/L RBC (test code = 789-8) 3.48 3.93- 5.22 M/L L MCHC (test code = 786-4) 30.8 32.2- 35.5 GM/DL L Hematocrit (test code = 4544-3) 27.9 % 34.1-44.9 L MCV (test code = 787-2) 80.2 fL 79.4-94.8 MCH (test code = 785-6) 24.7 pg 25.6-32.2 L RDW (test code = 788-0) 16.1 % 11.7-14.4 H Platelets (test code = 777-3) 220 150- 450 K/CU MM MPV (test code = 83814-6) 10.5 fL 9.4-12.3 nRBC (test code = 413) 0 0- 0 /100 WBC % Neutros (test code = 429) 48 % % Lymphs (test code = 430) 31 % % Monos (test code = 431) 12 % % Eos (test code = 432) 7 % % Baso (test code = 437) 2 % # Neutros (test code = 670) 2.60 1.56- 6.13 K/L # Lymphs (test code = 414) 1.66 1.18- 3.74 K/L # Monos (test code = 415) 0.62 0.24- 0.36 K/L H # Eos (test code = 416) 0.39 0.04- 0.36 K/L H # Baso (test code = 417) 0.08 0.01- 0.08 K/L Immature Granulocytes-Relative 0 % 0-1 (test code = 2801) Lab Interpretation (test code = Abnormal 92452-2) [facility] W/PLT COUNT & AUTO [id number] 03:42:00 Test Item Value Reference Range Interpretation Comments WHITE BLOOD CELL COUNT (BEAKER) 5.4 K/ L 3.5-10.5 (test code = 775) RED BLOOD CELL COUNT (BEAKER) 3.48 M/ L 3.93-5.22 L (test code = 761) HEMOGLOBIN (BEAKER) (test code = 8.6 GM/DL 11.2-15.7 L 410) HEMATOCRIT (BEAKER) (test code = 27.9 % 34.1-44.9 L 411) MEAN CORPUSCULAR VOLUME (BEAKER) 80.2 fL 79.4-94.8 (test code = 753) MEAN CORPUSCULAR HEMOGLOBIN 24.7 pg 25.6-32.2 L (BEAKER) (test code = 751) MEAN CORPUSCULAR HEMOGLOBIN CONC 30.8 GM/DL 32.2-35.5 L (BEAKER) (test code = 752) RED CELL DISTRIBUTION WIDTH 16.1 % 11.7-14.4 H (BEAKER) (test code = 412) PLATELET COUNT (BEAKER) (test 220 K/CU MM 150-450 code = 756) MEAN PLATELET VOLUME (BEAKER) 10.5 fL 9.4-12.3 (test code = 754) NUCLEATED RED BLOOD CELLS 0 /100 WBC 0-0 (BEAKER) (test code = 413) NEUTROPHILS RELATIVE PERCENT 48 % (BEAKER) (test code = 429) LYMPHOCYTES RELATIVE PERCENT 31 % (BEAKER) (test code = 430) MONOCYTES RELATIVE PERCENT 12 % (BEAKER) (test code = 431) EOSINOPHILS RELATIVE PERCENT 7 % (BEAKER) (test code = 432) BASOPHILS RELATIVE PERCENT 2 % (BEAKER) (test code = 437) NEUTROPHILS ABSOLUTE COUNT 2.60 K/ L 1.56-6.13 (BEAKER) (test code = 670) LYMPHOCYTES ABSOLUTE COUNT 1.66 K/ L 1.18-3.74 (BEAKER) (test code = 414) MONOCYTES ABSOLUTE COUNT (BEAKER) 0.62 K/ L 0.24-0.36 H (test code = 415) EOSINOPHILS ABSOLUTE COUNT 0.39 K/ L 0.04-0.36 H (BEAKER) (test code = 416) BASOPHILS ABSOLUTE COUNT (BEAKER) 0.08 K/ L 0.01-0.08 (test code = 417) IMMATURE GRANULOCYTES-RELATIVE 0 % 0-1 PERCENT (BEAKER) (test code = 2801) [id number] 05:25:00 Test Item Value Reference Range Interpretation Comments MAGNESIUM (BEAKER) (test code = 1.6 mg/dL 1.6-2.6 627) BASIC METABOLIC [id number] 05:25:00 Test Item Value Reference Range Interpretation Comments SODIUM (BEAKER) 137 meq/L 136-145 (test code = 381) POTASSIUM (BEAKER) 3.8 meq/L 3.5-5.1 (test code = 379) CHLORIDE (BEAKER) 102 meq/L 98-107 (test code = 382) CO2 (BEAKER) (test 25 meq/L 22-29 code = 355) BLOOD UREA NITROGEN 4 mg/dL 7-21 L (BEAKER) (test code = 354) CREATININE (BEAKER) 0.73 mg/dL 0.57-1.25 (test code = 358) GLUCOSE RANDOM 77 mg/dL 70-105 (BEAKER) (test code = 652) CALCIUM (BEAKER) 8.4 mg/dL 8.4-10.2 (test code = 697) EGFR (BEAKER) (test 81 mL/min/1.73 ESTIMA IVY GFR IS code = 1092) sq m NOT ACCURATE CREATININE CLEARANCE IN PREDICTING GLOMERULAR FILTRATION RATE . ESTIMATED GFR I S NOT APPLICABLE FOR DIALYSIS PATIEN TS. CALCIUM, [id number] 05:06:00 Test Item Value Reference Range Interpretation Comments CALCIUM IONIZED (BEAKER) (test 1.05 mmol/L 1.12-1.27 L code = 698) PH, BLOOD (BEAKER) (test code = 7.44 1810) CBC W/PLT COUNT & AUTO [id number] 04:23:00 Test Item Value Reference Range Interpretation Comments WHITE BLOOD CELL COUNT (BEAKER) 5.8 K/ L 3.5-10.5 (test code = 775) RED BLOOD CELL COUNT (BEAKER) 3.79 M/ L 3.93-5.22 L (test code = 761) HEMOGLOBIN (BEAKER) (test code = 9.4 GM/DL 11.2-15.7 L 410) HEMATOCRIT (BEAKER) (test code = 29.8 % 34.1-44.9 L 411) MEAN CORPUSCULAR VOLUME (BEAKER) 78.6 fL 79.4-94.8 L (test code = 753) MEAN CORPUSCULAR HEMOGLOBIN 24.8 pg 25.6-32.2 L (BEAKER) (test code = 751) MEAN CORPUSCULAR HEMOGLOBIN CONC 31.5 GM/DL 32.2-35.5 L (BEAKER) (test code = 752) RED CELL DISTRIBUTION WIDTH 15.9 % 11.7-14.4 H (BEAKER) (test code = 412) PLATELET COUNT (BEAKER) (test 256 K/CU MM 150-450 code = 756) MEAN PLATELET VOLUME (BEAKER) 10.2 fL 9.4-12.3 (test code = 754) NUCLEATED RED BLOOD CELLS 0 /100 WBC 0-0 (BEAKER) (test code = 413) NEUTROPHILS RELATIVE PERCENT 52 % (BEAKER) (test code = 429) LYMPHOCYTES RELATIVE PERCENT 31 % (BEAKER) (test code = 430) MONOCYTES RELATIVE PERCENT 8 % (BEAKER) (test code = 431) EOSINOPHILS RELATIVE PERCENT 8 % (BEAKER) (test code = 432) BASOPHILS RELATIVE PERCENT 1 % (BEAKER) (test code = 437) NEUTROPHILS ABSOLUTE COUNT 3.05 K/ L 1.56-6.13 (BEAKER) (test code = 670) LYMPHOCYTES ABSOLUTE COUNT 1.80 K/ L 1.18-3.74 (BEAKER) (test code = 414) MONOCYTES ABSOLUTE COUNT (BEAKER) 0.46 K/ L 0.24-0.36 H (test code = 415) EOSINOPHILS ABSOLUTE COUNT 0.44 K/ L 0.04-0.36 H (BEAKER) (test code = 416) BASOPHILS ABSOLUTE COUNT (BEAKER) 0.06 K/ L 0.01-0.08 (test code = 417) IMMATURE GRANULOCYTES-RELATIVE 0 % 0-1 PERCENT (BEAKER) (test code = 2801) Hepatic function [id number] 01:51:00 Test Item Value Reference Range Interpretation Comments Protein, Total (test code = 2885-2) 6.0 6.0- 8.3 gm/dL Albumin (test code = 25604-5) 3.4 g/dL 3.5-5 L Total Bilirubin (test code = 0.6 mg/dL 0.2-1.2 1974-2) Bilirubin, Direct (test code = 0.3 mg/dL 0.1-0.5 1967-7) Alkaline Phosphatase (test code = 163 U/L 40-150 H 6768-6) AST (test code = 1920-8) 52 U/L 5-34 H ALT (test code = 1742-6) 39 U/L 6-55 Lab Interpretation (test code = Abnormal 03847-3) [facility]HEPAT[facility] FUNCTION [id number] 01:51:00 Test Item Value Reference Range Interpretation Comments TOTAL PROTEIN (BEAKER) (test code = 6.0 gm/dL 6.0-8.3 770) ALBUMIN (BEAKER) (test code = 1145) 3.4 g/dL 3.5-5.0 L BILIRUBIN TOTAL (BEAKER) (test code 0.6 mg/dL 0.2-1.2 = 377) BILIRUBIN DIRECT (BEAKER) (test 0.3 mg/dL 0.1-0.5 code = 706) ALKALINE PHOSPHATASE (BEAKER) (test 163 U/L 40-150 H code = 346) AST (SGOT) (BEAKER) (test code = 52 U/L 5-34 H 353) ALT (SGPT) (BEAKER) (test code = 39 U/L 6-55 347) CT, [id number] 00:35:00Is this for enterography?->NoFINAL REPORT CLINICAL HISTORY: Epigastric pain, history of gastric bypass and pancreatitis, recent endoscopy FINDINGS: Multiple axial images of the abdomen and pelvis were performed after the uncomplicated administration of IV contrast. Oral contrast was not given. This exam was performed according to our departmental dose-optimization program, which includes automated exposure control, adjustment of the mA and/or kV according to patient size and/or use of the iterative reconstruction technique. The examination is limited by lack of enteric contrast in the small bowel and minimal intra-abdominal fat. Please note there is high density enteric contrast in the colon, likely from recent ERCP. Comparison:None. Lower chest: Curvilinear atelectasis versus scarring in the left lower lung. No pleural effusion or pneumothorax. Visualized cardiac contours normal. Liver: The right hepatic margin measures 18.7 cm in craniocaudal dimension at the midclavicular line, enlarged Gallbladder and biliary tree: Previous cholecystectomy. The common bile duct is dilated, measuring 10 mm. There is mild central intrahepatic biliary ductal prominence without gross dilatation. No radiopaque choledocholithiasis. Spleen: No significant findings. Adrenal Glands: No significant findings. Kidneys and ureters: No significant findings. Stomach and Duodenum: Previous gastric bypass. There is a lumen opposing metal stent in the proximal stomach adjacent to surgical suture line. The stomach is decompressed. Pancreas: A pancreatic duct stent appears appropriate position at the pancreatic head and duodenum. No pancreatic ductal dilatation is noted. The pancreatic parenchyma enhances normally. There isno organized retroperitoneal fluid collection to suggest pseudocyst or necrosis. Minimal intra-abdominal fat limits evaluation of peripancreatic fat stranding. Bowel: A limited opposing metal stents ispresent in the subhepatic right upper quadrant, possibly involving small bowel. Left colonic diverticulosis. No bowel obstruction. No pneumatosis intestinalis. Appendix: Nonvisualized Bladder: Obscured by streak artifact from bilateral total hip orthoplasty hardware. Major vascular structures: Atherosclerotic calcifications Reproductive organs: Previous hysterectomy Other: Diffuse subcutaneous edema. Trace ascites. No free intraperitoneal air. No organized fluid collection in the abdomen or pelvis to suggest abscess. Post surgical changes of epigastric ventral hernia repair. Skeleton: No acute bony abnormality. Bilateral total hip arthroplasty hardware is partially visualized. IMPRESSION: Limited examination, as described. A pancreatic duct stent is appropriately positioned. There is no retroperitoneal organized fluid collection. Lack of adjacent retroperitoneal fat limits evaluation for infl ammatory change. Please correlate with serology if pancreatitis is suspected. Mild dilatation of thecommon bile duct may relate to reservoir effect after cholecystectomy. No radiopaque choledocholithiasis is evident. Please correlate with LFTs. Other post procedure/postsurgical changes, as described.Hepatomegaly. Colonic diverticulosis. Trace ascites, nonspecific. Signed: Omar Burgess MDReport Verified Date/Time: 09/29/2019 00:35:24 CT abdomen/pelvis with IV [id number] 00:35:00Interface, External Ris In - 09/29/2019 12:37 AM CSTFINAL REPORT CLINICAL HISTORY: Epigastric pain, history of gastric bypass and pancreatitis, recent endoscopy FINDINGS: Multiple axial images of the abdomen and pelvis were performed after the uncomplicated administration of IVcontrast. Oral contrast was not given. This exam was performed according to our departmental dose-optimization program, which includes automated exposure control, adjustment of the mA and/or kV according to patient size and/or use of the iterative reconstruction technique. The examination is limited by lack of enteric contrast in the small bowel and minimal intra-abdominal fat. Please note there is high density enteric contrast in the colon, likely from recent ERCP. Comparison:None. Lower chest: Curvilinear atelectasis versus scarring in the left lower lung. No pleural effusion or pneumothorax. Visualized cardiac contours normal. Liver: The right hepatic margin measures 18.7 cm in craniocaudal dimension at the midclavicular line, enlarged Gallbladder and biliary tree: Previous cholecystectomy. The common bile duct is dilated, measuring 10 mm. There is mild central intrahepatic biliary ductal prominence without gross dilatation. No radiopaque choledocholithiasis. Spleen: No significant findings. Adrenal Glands: No significant findings. Kidneys and ureters: No significant findings. Stomach and Duodenum: Previous gastric bypass. There is a lumen opposing metal stent in the proximal stomach adjacent to surgical suture line. The stomach is decompressed. Pancreas: A pancreatic duct stent appears appropriate position at the pancreatic head and duodenum. No pancreatic ductal dilatation is noted. The pancreatic parenchyma enhances normally. There is no organized retroperitoneal fluid collection to suggest pseudocyst or necrosis. Minimal intra-abdominal fat limits evaluation of peripancreatic fat stranding. Bowel: A limited opposing metal stents is present in the subhepatic right upper quadrant, possibly involving small bowel. Left colonic diverticulosis. No bowel obstruction. No pneumatosis intestinalis. Appendix: Nonvisualized Bladder: Obscured by streak artifact from bilateral total hip orthoplasty hardware. Major vascular structures: Atherosclerotic calcifications Reproductive organs: Previous hysterectomy Other: Diffuse subcutaneous edema. Trace ascites. No free intraperitoneal air. No organized fluid collection in the abdomen or pelvis to suggest abscess. Post surgical changes of epigastric ventral hernia repair. Skeleton: No acute bony abnormality. Bilateral total hip arthroplasty hardware is partially visualized. IMPRESSION: Limited examination, as described. A pancreatic duct stent is appropriately positioned. There is no retroperitoneal organized fluid collection. Lack of adjacent retroperitoneal fat limits evaluation for inflammatory change. Please correlate with serology if pancreatitis is suspected. Mild dilatation of the common bile duct may relate to reservoir effect after cholecystectomy. No radiopaque choledocholithiasis is evident. Please correlate with LFTs. Other post procedure/postsurgical changes, as described. Hepatomegaly. Colonic diverticulosis. Trace ascites, nonspecific. Signed: Omar Burgess MDReport Verified Date/Time: 09/29/2019 00:35:24 [facility]19[facility]00 Test Item Value Reference Range Interpretation Comments Lipase (test code = 3040-3) 6 U/L 8-78 L Lab Interpretation (test code = Abnormal 61216-7) [facility] 22:19:00 Test Item Value Reference Range Interpretation Comments LIPASE (BEAKER) (test code = 749) 6 U/L 8-78 L RAD, CHEST, 1 VIEW, NON [id number] 21:04:00Reason for exam:->sobShould this be performed at the bedside?->YesFINAL REPORT History: Shortness of breath. Comparison: None. Findings: A single view of the chest is submitted. The cardiac silhouette is within normal limits for size. There is atherosclerotic calcification of the aorta. There is mild central vascular prominence and perihilar interstitial opacification, along with cephalization of the pulmonary vasculature, and appearance suggestive of mild pulmonary interstitial edema. There is no focal consolidation, pneumothorax, large pleural effusion or acute bony abnormality. Degenerative changes are present in the spine and both shoulders. Postsurgical changes are noted at the epigastrium. Signed: Omar Burgess VerifiedDate/Time: 09/28/2019 21:04:08 09 :04 PMXR chest 1 view portable / [id number] 21:04:00Interface, External Ris In - 09/28/2019 9:06 PM CSTFINAL REPORT History: Shortness of breath. Comparison: None. Findings: A single view of the chest is submitted. The cardiac silhouette is within normal limits for size. There is atherosclerotic calcification of the aorta. There is mild central vascular prominence and perihilar interstitial opacification, along with cephalization of the pulmonary vasculature, and appearance suggestive of mild pulmonary interstitial edema.There is no focal consolidation, pneumothorax, large pleural effusion or acute bony abnormality. Degenerative changes are present in the spine and both shoulders. Postsurgical changes are noted at the epigastrium. Signed: Burgess, Omar MDReport Verified Date/Time: 09/28/2019 21:04:08 [facility] 09:55:00 Test Item Value Reference Range Interpretation Comments LIPASE (BEAKER) (test code = 749) 5 U/L 8-78 L CALCIUM, [id number] 08:24:00 Test Item Value Reference Range Interpretation Comments CALCIUM IONIZED (BEAKER) (test 1.05 mmol/L 1.12-1.27 L code = 698) PH, BLOOD (BEAKER) (test code = 7.38 1810) [id number] 06:27:00 Test Item Value Reference Range Interpretation Comments MAGNESIUM (BEAKER) (test code = 1.9 mg/dL 1.6-2.6 627) BASIC METABOLIC [id number] 06:27:00 Test Item Value Reference Range Interpretation Comments SODIUM (BEAKER) 140 meq/L 136-145 (test code = 381) POTASSIUM (BEAKER) 4.5 meq/L 3.5-5.1 (test code = 379) CHLORIDE (BEAKER) 106 meq/L 98-107 (test code = 382) CO2 (BEAKER) (test 29 meq/L 22-29 code = 355) BLOOD UREA NITROGEN 7 mg/dL 7-21 (BEAKER) (test code = 354) CREATININE (BEAKER) 0.74 mg/dL 0.57-1.25 (test code = 358) GLUCOSE RANDOM 81 mg/dL 70-105 (BEAKER) (test code = 652) CALCIUM (BEAKER) 8.4 mg/dL 8.4-10.2 (test code = 697) EGFR (BEAKER) (test 80 mL/min/1.73 ESTIMA IVY GFR IS code = 1092) sq m NOT ACCURATE CREATININE CLEARANCE IN PREDICTING GLOMERULAR FILTRATION RATE . ESTIMATED GFR I S NOT APPLICABLE FOR DIALYSIS PATIEN TS. CBC W/PLT COUNT & AUTO [id number] 05:27:00 Test Item Value Reference Range Interpretation Comments WHITE BLOOD CELL COUNT (BEAKER) 6.2 K/ L 3.5-10.5 (test code = 775) RED BLOOD CELL COUNT (BEAKER) 3.78 M/ L 3.93-5.22 L (test code = 761) HEMOGLOBIN (BEAKER) (test code = 9.3 GM/DL 11.2-15.7 L 410) HEMATOCRIT (BEAKER) (test code = 30.6 % 34.1-44.9 L 411) MEAN CORPUSCULAR VOLUME (BEAKER) 81.0 fL 79.4-94.8 (test code = 753) MEAN CORPUSCULAR HEMOGLOBIN 24.6 pg 25.6-32.2 L (BEAKER) (test code = 751) MEAN CORPUSCULAR HEMOGLOBIN CONC 30.4 GM/DL 32.2-35.5 L (BEAKER) (test code = 752) RED CELL DISTRIBUTION WIDTH 15.5 % 11.7-14.4 H (BEAKER) (test code = 412) PLATELET COUNT (BEAKER) (test 239 K/CU MM 150-450 code = 756) MEAN PLATELET VOLUME (BEAKER) 10.0 fL 9.4-12.3 (test code = 754) NUCLEATED RED BLOOD CELLS 0 /100 WBC 0-0 (BEAKER) (test code = 413) NEUTROPHILS RELATIVE PERCENT 62 % (BEAKER) (test code = 429) LYMPHOCYTES RELATIVE PERCENT 23 % (BEAKER) (test code = 430) MONOCYTES RELATIVE PERCENT 8 % (BEAKER) (test code = 431) EOSINOPHILS RELATIVE PERCENT 6 % (BEAKER) (test code = 432) BASOPHILS RELATIVE PERCENT 1 % (BEAKER) (test code = 437) NEUTROPHILS ABSOLUTE COUNT 3.82 K/ L 1.56-6.13 (BEAKER) (test code = 670) LYMPHOCYTES ABSOLUTE COUNT 1.43 K/ L 1.18-3.74 (BEAKER) (test code = 414) MONOCYTES ABSOLUTE COUNT (BEAKER) 0.49 K/ L 0.24-0.36 H (test code = 415) EOSINOPHILS ABSOLUTE COUNT 0.38 K/ L 0.04-0.36 H (BEAKER) (test code = 416) BASOPHILS ABSOLUTE COUNT (BEAKER) 0.05 K/ L 0.01-0.08 (test code = 417) IMMATURE GRANULOCYTES-RELATIVE 0 % 0-1 PERCENT (BEAKER) (test code = 2801) [place], [id number] 12:08:00Reason for exam:->CBD strictureFINAL REPORT A fluoroscopic unit was utilized for a procedure performed in the operating room. No interpretation was requested. Please refer to the operative report regarding findings. Please refer to PACS for patient radiation dose information. Signed: Jovi Nj Verified Date/Time: 09/27/2019 12:08:57 Reading Location: [facility] B1 C013Y CT Body Reading Room [place] ERCP 2019-09-27 12:08:00Interface, External Ris In - 09/27/2019 12:11 PM CDTFINAL REPORT A fluoroscopic unit was utilized for a procedure performed in the operating room. No interpretation was requested. Please refer to the operative report regarding findings. Please refer to PACS for patient radiationdose information. Signed: Jovi Nj Verified Date/Time: 09/27/2019 12:08:57 Reading Location: [facility] C013Y CT Body Reading Room [facility]2019-[facility] 06:17:00 Test Item Value Reference Range Interpretation Comments MAGNESIUM (BEAKER) (test code = 1.6 mg/dL 1.6-2.6 627) BASIC METABOLIC [id number] 06:17:00 Test Item Value Reference Range Interpretation Comments SODIUM (BEAKER) 141 meq/L 136-145 (test code = 381) POTASSIUM (BEAKER) 4.0 meq/L 3.5-5.1 (test code = 379) CHLORIDE (BEAKER) 105 meq/L 98-107 (test code = 382) CO2 (BEAKER) (test 32 meq/L 22-29 H code = 355) BLOOD UREA NITROGEN 4 mg/dL 7-21 L (BEAKER) (test code = 354) CREATININE (BEAKER) 0.72 mg/dL 0.57-1.25 (test code = 358) GLUCOSE RANDOM 85 mg/dL 70-105 (BEAKER) (test code = 652) CALCIUM (BEAKER) 8.3 mg/dL 8.4-10.2 L (test code = 697) EGFR (BEAKER) (test 82 mL/min/1.73 ESTIMA IVY GFR IS code = 1092) sq m NOT ACCURATE CREATININE CLEARANCE IN PREDICTING GLOMERULAR FILTRATION RATE . ESTIMATED GFR I S NOT APPLICABLE FOR DIALYSIS PATIEN TS. CALCIUM, [id number] 06:16:00 Test Item Value Reference Range Interpretation Comments CALCIUM IONIZED (BEAKER) (test 1.06 mmol/L 1.12-1.27 L code = 698) PH, BLOOD (BEAKER) (test code = 7.44 1810) CBC W/PLT COUNT & AUTO [id number] 05:39:00 Test Item Value Reference Range Interpretation Comments WHITE BLOOD CELL COUNT (BEAKER) 5.8 K/ L 3.5-10.5 (test code = 775) RED BLOOD CELL COUNT (BEAKER) 3.83 M/ L 3.93-5.22 L (test code = 761) HEMOGLOBIN (BEAKER) (test code = 9.4 GM/DL 11.2-15.7 L 410) HEMATOCRIT (BEAKER) (test code = 31.1 % 34.1-44.9 L 411) MEAN CORPUSCULAR VOLUME (BEAKER) 81.2 fL 79.4-94.8 (test code = 753) MEAN CORPUSCULAR HEMOGLOBIN 24.5 pg 25.6-32.2 L (BEAKER) (test code = 751) MEAN CORPUSCULAR HEMOGLOBIN CONC 30.2 GM/DL 32.2-35.5 L (BEAKER) (test code = 752) RED CELL DISTRIBUTION WIDTH 15.8 % 11.7-14.4 H (BEAKER) (test code = 412) PLATELET COUNT (BEAKER) (test 254 K/CU MM 150-450 code = 756) MEAN PLATELET VOLUME (BEAKER) 9.8 fL 9.4-12.3 (test code = 754) NUCLEATED RED BLOOD CELLS 0 /100 WBC 0-0 (BEAKER) (test code = 413) NEUTROPHILS RELATIVE PERCENT 51 % (BEAKER) (test code = 429) LYMPHOCYTES RELATIVE PERCENT 29 % (BEAKER) (test code = 430) MONOCYTES RELATIVE PERCENT 10 % (BEAKER) (test code = 431) EOSINOPHILS RELATIVE PERCENT 8 % (BEAKER) (test code = 432) BASOPHILS RELATIVE PERCENT 1 % (BEAKER) (test code = 437) NEUTROPHILS ABSOLUTE COUNT 2.96 K/ L 1.56-6.13 (BEAKER) (test code = 670) LYMPHOCYTES ABSOLUTE COUNT 1.70 K/ L 1.18-3.74 (BEAKER) (test code = 414) MONOCYTES ABSOLUTE COUNT (BEAKER) 0.59 K/ L 0.24-0.36 H (test code = 415) EOSINOPHILS ABSOLUTE COUNT 0.48 K/ L 0.04-0.36 H (BEAKER) (test code = 416) BASOPHILS ABSOLUTE COUNT (BEAKER) 0.06 K/ L 0.01-0.08 (test code = 417) IMMATURE GRANULOCYTES-RELATIVE 0 % 0-1 PERCENT (BEAKER) (test code = 2801) TISSUE [id number] 18:22:00Surgical Pathology Report Case: [id number] Authorizing Provider: Patricia Savage Collected: 09/24/2019 1311 MD Krystian Ordering Location: [facility] Received: 09/25/2019 0812 Pathologist: Cassius Peguero MD Specimen: Stomach, Biopsy polyp stomach A. STOMACH, POLYPBIOPSY- FUNDIC GLAND POLYP- MILD CHRONIC INFLAMMATION- NO INTESTINAL METAPLASIA, DYSPLASIA OR INVASIVE CARCINOMA IDENTIIFIED- NO HELICOBACTER PYLORI LIKE ORGANISMS IDENTIFIED ON WARTHIN STARRY STAIN Signing Pathologist Direct Phone Line: [phone] signed by Cassius Peguero MD on 09/26/2019 at 6:22 [id number], [id number] diagnosis: Common bile duct stoneReceived in formalin labeled with the patient's name, accession number and "stomach" is a 0.2 x 0.2 x 0.1 cm nielson-pink tissue fragment which is filtered and submitted in toto in A1. PA/pl Performed.The interpretation of this case included the use of immunohistochemistry or special stains.Control Slides Examined: In-houseknown positive controls were evaluated along with the test tissue. These control slides run alongside of the patients sample show appropriate staining. Internal positive and negative controls when available are evaluated Immunohistochemistry technical testing was performed at [facility], Pathology Laboratory where it was developed and its performance characteristics were determined. It has not been cleared or approved by the U.S. Food and Drug Administration. The FDA has determined that such clearance or approval is not necessary. The test is used for clinical purposes. It should not be regarded as investigational or for research. This laboratory is certified under the Clinical Laboratory Improvement Amendments of 1988 (CLIA-88) as qualified to perform high complexity clinical laboratory testing.[facility], Department of Pathology, [address] [place] [address], [facility], [facility] of [facility], [address] [place] [address], [facility], Department of Pathology, [address] [place] [address], PYJGXPO, [id number] 07:14:00 Test Item Value Reference Range Interpretation Comments CALCIUM IONIZED (BEAKER) (test 1.10 mmol/L 1.12-1.27 L code = 698) PH, BLOOD (BEAKER) (test code = 7.37 1810) [id number] 05:41:00 Test Item Value Reference Range Interpretation Comments MAGNESIUM (BEAKER) (test code = 1.8 mg/dL 1.6-2.6 627) BASIC METABOLIC [id number] 05:41:00 Test Item Value Reference Range Interpretation Comments SODIUM (BEAKER) 138 meq/L 136-145 (test code = 381) POTASSIUM (BEAKER) 4.4 meq/L 3.5-5.1 (test code = 379) CHLORIDE (BEAKER) 102 meq/L 98-107 (test code = 382) CO2 (BEAKER) (test 31 meq/L 22-29 H code = 355) BLOOD UREA NITROGEN 4 mg/dL 7-21 L (BEAKER) (test code = 354) CREATININE (BEAKER) 0.74 mg/dL 0.57-1.25 (test code = 358) GLUCOSE RANDOM 86 mg/dL 70-105 (BEAKER) (test code = 652) CALCIUM (BEAKER) 8.7 mg/dL 8.4-10.2 (test code = 697) EGFR (BEAKER) (test 80 mL/min/1.73 ESTIMA IVY GFR IS code = 1092) sq m NOT ACCURATE CREATININE CLEARANCE IN PREDICTING GLOMERULAR FILTRATION RATE . ESTIMATED GFR I S NOT APPLICABLE FOR DIALYSIS PATIEN TS. CBC W/PLT COUNT & AUTO [id number] 04:59:00 Test Item Value Reference Range Interpretation Comments WHITE BLOOD CELL COUNT (BEAKER) 6.4 K/ L 3.5-10.5 (test code = 775) RED BLOOD CELL COUNT (BEAKER) 4.34 M/ L 3.93-5.22 (test code = 761) HEMOGLOBIN (BEAKER) (test code = 10.6 GM/DL 11.2-15.7 L 410) HEMATOCRIT (BEAKER) (test code = 35.0 % 34.1-44.9 411) MEAN CORPUSCULAR VOLUME (BEAKER) 80.6 fL 79.4-94.8 (test code = 753) MEAN CORPUSCULAR HEMOGLOBIN 24.4 pg 25.6-32.2 L (BEAKER) (test code = 751) MEAN CORPUSCULAR HEMOGLOBIN CONC 30.3 GM/DL 32.2-35.5 L (BEAKER) (test code = 752) RED CELL DISTRIBUTION WIDTH 15.9 % 11.7-14.4 H (BEAKER) (test code = 412) PLATELET COUNT (BEAKER) (test 290 K/CU MM 150-450 code = 756) MEAN PLATELET VOLUME (BEAKER) 9.4 fL 9.4-12.3 (test code = 754) NUCLEATED RED BLOOD CELLS 0 /100 WBC 0-0 (BEAKER) (test code = 413) NEUTROPHILS RELATIVE PERCENT 57 % (BEAKER) (test code = 429) LYMPHOCYTES RELATIVE PERCENT 26 % (BEAKER) (test code = 430) MONOCYTES RELATIVE PERCENT 9 % (BEAKER) (test code = 431) EOSINOPHILS RELATIVE PERCENT 7 % (BEAKER) (test code = 432) BASOPHILS RELATIVE PERCENT 1 % (BEAKER) (test code = 437) NEUTROPHILS ABSOLUTE COUNT 3.62 K/ L 1.56-6.13 (BEAKER) (test code = 670) LYMPHOCYTES ABSOLUTE COUNT 1.66 K/ L 1.18-3.74 (BEAKER) (test code = 414) MONOCYTES ABSOLUTE COUNT (BEAKER) 0.58 K/ L 0.24-0.36 H (test code = 415) EOSINOPHILS ABSOLUTE COUNT 0.45 K/ L 0.04-0.36 H (BEAKER) (test code = 416) BASOPHILS ABSOLUTE COUNT (BEAKER) 0.04 K/ L 0.01-0.08 (test code = 417) IMMATURE GRANULOCYTES-RELATIVE 0 % 0-1 PERCENT (BEAKER) (test code = 2801) CALCIUM, [id number] 13:01:00 Test Item Value Reference Range Interpretation Comments CALCIUM IONIZED (BEAKER) (test 1.16 mmol/L 1.12-1.27 code = 698) PH, BLOOD (BEAKER) (test code = 7.27 1810) [id number] 12:56:00 Test Item Value Reference Range Interpretation Comments MAGNESIUM (BEAKER) (test code = 1.9 mg/dL 1.6-2.6 627) BASIC METABOLIC [id number] 12:56:00 Test Item Value Reference Range Interpretation Comments SODIUM (BEAKER) 139 meq/L 136-145 (test code = 381) POTASSIUM (BEAKER) 4.3 meq/L 3.5-5.1 (test code = 379) CHLORIDE (BEAKER) 104 meq/L 98-107 (test code = 382) CO2 (BEAKER) (test 29 meq/L 22-29 code = 355) BLOOD UREA NITROGEN 7 mg/dL 7-21 (BEAKER) (test code = 354) CREATININE (BEAKER) 0.73 mg/dL 0.57-1.25 (test code = 358) GLUCOSE RANDOM 93 mg/dL 70-105 (BEAKER) (test code = 652) CALCIUM (BEAKER) 8.8 mg/dL 8.4-10.2 (test code = 697) EGFR (BEAKER) (test 81 mL/min/1.73 ESTIMA IVY GFR IS code = 1092) sq m NOT ACCURATE CREATININE CLEARANCE IN PREDICTING GLOMERULAR FILTRATION RATE . ESTIMATED GFR I S NOT APPLICABLE FOR DIALYSIS PATIEN TS. ECG 12 [id number] 11:17:46Interface, External Ris In - 09/25/2019 11:17 AM CDTVentricular Rate 56 BPMAtrial Rate 56 BPMP-R Interval 142 msQRS Duration 116 msQ-T Interval 470 msQTC Calculation(Bazett) 453 msP [place] 79 degreesR [place] 79 degreesT [place] 32 degreesSinus bradycardiaRight bundle branch blockAbnormal ECGNo previous ECGs availableConfirmed by MD Walter, Raul ([id number]) on 09/25/2019 11:17:43 [facility]FL[facility] CUR[facility] ROOM SUPERVISOR IN OR/30 MINUTE [id number] 07:30:00Reason for exam:->Dilated Common Bile DuctFINAL REPORT A fluoroscopic unit was utilized for a procedure performed in the operating room. No interpretation was requested. Please refer to the operative report regarding findings. Please refer to PACS for patient radiation dose information. Signed: Linda Scruggs Verified Date/Time: 09/25/2019 07:30:33 Reading Location: [facility] Radiology Reading Room [place] aircraft mechanic electrical and radio in or 30 minute [id number] 07:30:00Interface, External Ris In - 09/25/2019 7:32 AM CDTFINAL REPORT A fluoroscopic unit was utilized for a procedure performed in the operating room. No interpretation was requested. Please refer to the operative report regarding findings. Please refer to PACS for patient radiationdose information. Signed: Linda Scruggs Verified Date/Time: 09/25/2019 07:30:33 Reading Location: [facility] Radiology Reading Room [facility] CenterCom[facility] [id number] 16:48:00 Test Item Value Reference Range Interpretation Comments Protein, Total (test 6.9 6.0- 8.3 gm/dL Speci men slightly code = 2885-2) hemolyzed Albumin (test code = 3.8 g/dL 3.5-5 Specime n slightly 76592-6) hemolyzed Alkaline Phosphatase 68 U/L 40-150 (test code = 6768-6) Total Bilirubin (test 0.5 mg/dL 0.2-1.2 Specim en slightly code = 1975-2) hemolyzed Sodium (test code = 142 meq/L 485-624 9977-2) Potassium (test code = 4.3 meq/L 3.5-5.1 Speci men slightly 2823-3) hemolyzed Chloride (test code = 107 meq/L 98-107 5-0) CO2 (test code = 29 meq/L 22-29 2027-9) BUN (test code = 11 mg/dL 7- 3094-0) Creatinine (test code = 0.72 mg/dL 0.57-1.25 Spec imen slightly 2160-0) hemolyzed Glucose (test code = 77 mg/dL 70-105 2345-7) Calcium (test code = 8.2 mg/dL 8.4-10.2 L 78067-7) AST (test code = 31 U/L 5-34 Specimen sl ightly 1920-8) hemolyzed ALT (test code = 17 U/L 6-55 Specimen sl ightly 1742-6) hemolyzed EGFR (test code = 82 mL/min/1.73 [place] [address]-7) NOT ACCURATE CREATININE CLEARANCE IN PREDICTING GLOMERULAR FILTRATION RATE . ESTIMATED GFR I S NOT APPLICABLE FOR DIALYSIS PATIEN TS. Lab Interpretation Abnormal (test code = 09327-9) [facility] [id number] 16:48:00 Test Item Value Reference Range Interpretation Comments TOTAL PROTEIN 6.9 gm/dL 6.0-8.3 Specimen sligh tly (BEAKER) (test code = hemoly zed 770) ALBUMIN (BEAKER) 3.8 g/dL 3.5-5.0 Specimen sl ightly (test code = 1145) hemolyzed ALKALINE PHOSPHATASE 68 U/L 40-150 (BEAKER) (test code = 346) BILIRUBIN TOTAL 0.5 mg/dL 0.2-1.2 Specimen sli ghtly (BEAKER) (test code = hemoly zed 377) SODIUM (BEAKER) (test 142 meq/L 136-145 code = 381) POTASSIUM (BEAKER) 4.3 meq/L 3.5-5.1 Specimen slightly (test code = 379) hemolyzed CHLORIDE (BEAKER) 107 meq/L 98-107 (test code = 382) CO2 (BEAKER) (test 29 meq/L - code = 355) BLOOD UREA NITROGEN 11 mg/dL 7- (BEAKER) (test code = 354) CREATININE (BEAKER) 0.72 mg/dL 0.57-1.25 Specimen slightly (test code = 358) hemolyzed GLUCOSE RANDOM 77 mg/dL 70-105 (BEAKER) (test code = 652) CALCIUM (BEAKER) 8.2 mg/dL 8.4-10.2 L (test code = 697) AST (SGOT) (BEAKER) 31 U/L 5-34 Specimen slightly (test code = 353) hemolyzed ALT (SGPT) (BEAKER) 17 U/L 6-55 Specimen slightly (test code = 347) hemolyzed EGFR (BEAKER) (test 82 mL/min/1.73 ESTIMA IVY GFR IS code = 1092) sq m NOT ACCURATE CREATININE CLEARANCE IN PREDICTING GLOMERULAR FILTRATION RATE . ESTIMATED GFR I S NOT APPLICABLE FOR DIALYSIS PATIEN TS. Prothrombin time/[id number] 16:39:00 Test Item Value Reference Range Interpretation Comments Protime (test code = 15.4 11.9- 14.2 H 5902-2) seconds INR (test code = 1.3 <=5.9 6301-6) ANDREW (test code = ANDREW) Effective 04/23/2019: PT Reference Range ChangeNew: 11.9-14.2 Previous: 11.7-14.7 RECOMMENDED COUMADIN/WARFARIN INR THERAPY RANGESSTANDARD DOSE: 2.0-3.0 Includes: PROPHYLAXIS for venous thrombosis, systemic embolization; TREATMENT for venous thrombosis and/or pulmonary embolus.HIGH RISK: Target INR is 2.5-3.5 for patients wiht mechanical heart valves. Lab Interpretation Abnormal (test code = 98990-0) [facility] HospitalPROTHROMBIN TIME/[id number] 16:39:00 Test Item Value Reference Range Interpretation Comments PROTIME (BEAKER) (test code = 15.4 seconds 11.9-14.2 H 759) INR (BEAKER) (test code = 370) 1.3 <=5.9 Effective 04/23/2019: PT Reference Range ChangeNew: 11.9-14.2 Previous: 11.7- 14.7RECOMMENDED COUMADIN/WARFARIN INR THERAPY RANGESSTANDARD DOSE: 2.0-3.0 Includes: PROPHYLAXIS for venous thrombosis, systemic embolization; TREATMENT for venous thrombosis and/or pulmonary embolus.HIGH RISK: Target INR is2.5-3.5 for patients wiht mechanical heart valves.CALCIUM, [id number] 16:39:00 Test Item Value Reference Range Interpretation Comments CALCIUM IONIZED (BEAKER) (test 1.10 mmol/L 1.12-1.27 L code = 698) PH, BLOOD (BEAKER) (test code = 7.38 1810) CBC W/PLT COUNT & AUTO [id number] 16:30:00 Test Item Value Reference Range Interpretation Comments WHITE BLOOD CELL COUNT (BEAKER) 5.2 K/ L 3.5-10.5 (test code = 775) RED BLOOD CELL COUNT (BEAKER) 4.46 M/ L 3.93-5.22 (test code = 761) HEMOGLOBIN (BEAKER) (test code = 10.9 GM/DL 11.2-15.7 L 410) HEMATOCRIT (BEAKER) (test code = 36.1 % 34.1-44.9 411) MEAN CORPUSCULAR VOLUME (BEAKER) 80.9 fL 79.4-94.8 (test code = 753) MEAN CORPUSCULAR HEMOGLOBIN 24.4 pg 25.6-32.2 L (BEAKER) (test code = 751) MEAN CORPUSCULAR HEMOGLOBIN CONC 30.2 GM/DL 32.2-35.5 L (BEAKER) (test code = 752) RED CELL DISTRIBUTION WIDTH 15.9 % 11.7-14.4 H (BEAKER) (test code = 412) PLATELET COUNT (BEAKER) (test 312 K/CU MM 150-450 code = 756) MEAN PLATELET VOLUME (BEAKER) 9.8 fL 9.4-12.3 (test code = 754) NUCLEATED RED BLOOD CELLS 0 /100 WBC 0-0 (BEAKER) (test code = 413) NEUTROPHILS RELATIVE PERCENT 49 % (BEAKER) (test code = 429) LYMPHOCYTES RELATIVE PERCENT 37 % (BEAKER) (test code = 430) MONOCYTES RELATIVE PERCENT 10 % (BEAKER) (test code = 431) EOSINOPHILS RELATIVE PERCENT 3 % (BEAKER) (test code = 432) BASOPHILS RELATIVE PERCENT 2 % (BEAKER) (test code = 437) NEUTROPHILS ABSOLUTE COUNT 2.56 K/ L 1.56-6.13 (BEAKER) (test code = 670) LYMPHOCYTES ABSOLUTE COUNT 1.92 K/ L 1.18-3.74 (BEAKER) (test code = 414) MONOCYTES ABSOLUTE COUNT (BEAKER) 0.50 K/ L 0.24-0.36 H (test code = 415) EOSINOPHILS ABSOLUTE COUNT 0.13 K/ L 0.04-0.36 (BEAKER) (test code = 416) BASOPHILS ABSOLUTE COUNT (BEAKER) 0.09 K/ L 0.01-0.08 H (test code = 417) IMMATURE GRANULOCYTES-RELATIVE 0 % 0-1 PERCENT (BEAKER) (test code = 2801) Amylase [id number] 06:50:00 Test Item Value Reference Range Interpretation Comments Amylase (test code = 16 U/L 21-101 L 1798-8) RAC (test code = RAC) Performing Organization Information: Site ID: RGA Name: [facility] Address: [address] [place] [phone] Director: Jose Carlos Iyer Lab Interpretation (test Abnormal code = 32573-7) [facility] MethodistLipase [id number] 06:50:00 Test Item Value Reference Range Interpretation Comments Lipase (test code = 14 U/L 7-60 3040-3) RAC (test code = Performing Organization RAC) Information: Site ID: RGA Name: [facility] Address: [address] [place] [phone] Director: Jose Carlos Iyer [facility] MethodistCB with platelet and [id number] 06:50:00 Test Item Value Reference Range Interpretation Comments WBC (test code = 7.0 3.8- 10.8 6690-2) Thousand/uL RBC (test code = 789-8) 4.34 3.80- 5.10 Million/uL HGB (test code = 718-7) 10.9 g/dL 11.7-15.5 L HCT (test code = 34.6 % 35-45 L 4544-3) MCV (test code = 787-2) 79.7 fL 80-100 L MCH (test code = 785-6) 25.1 pg 27-33 L MCHC (test code = 31.5 g/dL 32-36 L 786-4) RDW (test code = 788-0) 14.9 % 11-15 Platelet count (test 299 140- 400 code = 777-3) Thousand/uL MPV (test code = 776-5) 10.2 fL 7.5-12.5 Neutrophils, absolute 4025 1,500 - 7,800 (test code = 751-8) cells/uL Lymphocytes, absolute 2114 850- 3,900 (test code = 731-0) cells/uL Monocytes, absolute 581 200- 950 cells/uL (test code = 742-7) Eosinophils, absolute 182 15- 500 cells/uL (test code = 711-2) Basophils, absolute 98 0- 200 cells/uL (test code = 704-7) Neutrophils (test code 57.5 % = 770-8) Lymphocytes (test code 30.2 % = 736-9) Monocytes (test code = 8.3 % 5905-5) Eosinophils (test code 2.6 % = 713-8) Basophils + RC (test 1.4 % code = 706-2) RAC (test code = RAC) Performing Organization Information: Site ID: RGA Name: [facility] Lab Address: [address] [place] [phone] Director: Jose Carlos Iyer Lab Interpretation Abnormal (test code = 68000-9) [facility] MethodistMRI Abd/Pelvic External [id number] 00:06:12This exam was not acquired at a Christian facility and has not been interpreted by a Christian Provider. The exam was imported into our imaging system for comparisons purposes.[facility] MethodistHepatic function [id number] 04:56:00 Test Item Value Reference Range Interpretation Comments Protein (test code = 6.6 g/dL 6.1-8.1 2885-2) Albumin, S (test code 4.0 g/dL 3.6-5.1 = 1751-7) Globulin, total (test 2.6 1.9- 3.7 g/dL code = 60886-8) (calc) Albumin/globulin 1.5 1.0- 2.5 (calc) ratio (test code = 1759-0) Total bilirubin (test 0.6 mg/dL 0.2-1.2 code = 1975-2) Bilirubin direct 0.1 mg/dL < OR = 0.2 (test code = 1968-7) Bilirubin, indirect 0.5 0.2- 1.2 mg/dL (test code = 1970-) (calc) Alkaline phosphatase 75 U/L 33-130 (test code = 6768-6) AST (test code = 17 U/L 10-35 1920-8) ALT (test code = 13 U/L 6-29 1742-6) RAC (test code = RAC) Performing Organization Information: Site ID: RGA Name: [facility] Address: [address] [place] [phone] Director: Jose Carlos Iyer [facility] MethodistCT Abdomen Pelvis W [id number] 12:06:53Hm Interface, Radiology Results - 07/11/2019 12:09 PM CDTEXAMINATION: CT ABDOMEN PELVIS W CONTRASTCLINICAL HISTORY: R10.12 Left upper quadrant pain, LUQ PainCOMPARISON: 01/19/2015TECHNIQUE:CT of the abdomen and pelvis with intravenous contrast. CT imaging was performed with iterative reconstruction techniques and/or automated exposure control to reduce radiation dose. FINDINGS:LOWER THORAX: Mild bibasilar atelectasis. 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 No recurrent hernia appreciated.HEPATOBILIARY: Cholecystectomy. No focal hepatic lesions.SPLEEN: No splenomegaly.PANCREAS: No focal masses or ductal dilation.ADRENALS: No adrenal nodules.KIDNEYS: No hydronephrosis, stones or solid masses.GI TRACT: Generalized colonic diverticulosis withoutdefinite CT evidence of diverticulitis. Evaluation is somewhat limited by paucity of intra-abdominalfat. The appendix is not localized for evaluation. There has been previous Torres-en-Y gastric bypass with expectant postoperative appearance. There is a tiny hiatal hernia (coronal image 27). There is no bowel obstruction.PERITONEUM/RETROPERITONEUM: Prominent atherosclerotic disease in the abdominal aorta which is nonaneurysmal. There is no abdominal adenopathy or ascites. There are some postsurgicalchanges in the anterior abdominal wall in the right lower quadrant.PELVIC ORGANS/BLADDER: Hysterectomy. No pelvic adenopathy or fluid.BONES AND SOFT TISSUES: Bilateral hip arthroplasties. Degenerative changes in the spine.IMPRESSION:1. No definite acute finding to explain patient's left upper quadrant pain.2. Status post previous Torres-en-Y gastric bypass, Morgagni hernia repair, cholecystectomy and hysterectomy.3. Additional findings as [id number] [facility] 2019-07-11 10:21:42 Test Item Value Reference Range Interpretation Comments POC creatinine (test 0.6 mg/dl 0.5-0.9 Meter I D: code = 22477-7) 279482Aydkhv or: Adalberto Herman MethodistEstimated [id number] 10:21:42 Test Item Value Reference Range Interpretation Comments Estimated GFR (test >=90 mL/min/1.73 m2 Catkevin roy Units code = 69976-9) Interpretati onG1 >=90 Normal or highG2 60-89 Mildly qdrteximlT8n 45-59 Mildly to mode rately skappdomjG9m 30-44 Moderately to severely decreasedG4 15-29 Severely decre asedG5 <15 Kidn ey failureThe eGFR was calculated karel g the Chronic Kidney Disease Epidemiology Co llaboration (CKD-EPI) equat ion. Interpretation is based on recommendations of the National Kidney Foundation-Kidn ey Disease Outcomes Qualit y Initiative (NKF-KDOQI) pub lished in 2014. [facility] MethodistFL UGI w Air W [id number] 13:14:21 Interface, Radiology Results 06/25/2019 1:17 PM CDTEXAMINATION: FL UGI W AIR W KUBCLI NICAL HISTORY: Z98.84 Bariatric surgery status, s p rygbCOMPARISON: None.TECHNIQUE: Effervescent crystals and barium administered by mouth. Patient imaged in the upright and recumbent positions.FLUOROSCOPIC TIME: 1.7 minutes . 16 image(s) obtained.Findings: Abdomen shows nonobstructive bowel gas pattern. Bilateral hip arthroplasty partially seen. Surgical clips projecting in the right hemiabdomen and ventral hernia repair with mesh at the epigastric region midline.Esophageal motility well-maintained. Esophagus demonstrates no mass or stricture. No mucosal irregularity. Status post gastric bypass. Small sliding hiatal hernia. No gastroesophageal reflux observed however. The gastric pouch demonstrates nothing unusual. Contrast readily traverses the gastrojejunostomy. The visualized small bowel demonstrates nothing unusual. IMPRESSION: Small sliding hiatal hernia, without GE reflux observed. Otherwise, status post gastric bypass with satisfactory postoperative appearance. [id number] MethodistURINE AND [id number] 08:06:00 Negative *NA*(04/10/19 3:06 AM)[facility] [id number] 08:06:00 Negative (04/10/19 3:06 AM)[facility] [id number] 08:06:001.0 [facility] [id number] 08:06:00Negative (04/10/19 3:06 AM) [facility] [id number] 08:06:00Negative (04/10/19 3:06 AM) [facility] [id number] 08:06:00 Test Item Value Reference Range Interpretation Comments UA Spec Grav (test code = UA Spec 1.015 1 Grav) [facility] [id number] 08:06:00 Test Item Value Reference Range Interpretation Comments UA pH (test code = UA pH) 6.0 1 5.0-8.0 [facility] [id number] 08:06:00Yellow *NA*(04/10/19 3:06 AM) [facility] [id number] 08:06:00Clear (04/10/19 3:06 AM) [facility] XgmjuqhSMLITNGQZA6974-67-81 06:36:003.3[facility] 2019-04-10 06:36:001.0[facility] NyvawkuHPDMUXEEHR9321-96-32 06:36:0019.2[facility] TeflirzTDRBCYAOJH6397-18-85 06:36:003.1[facility] HeogbskWFAKMDNTQL7926-91-25 06:36:000.9[facility] JmvekcyIVAKJQTSIA2568-74-37 06:36:000.5[facility] LVNJSLMWIZ4461-85-07 06:36:000.2[facility] WzmbnmzPKAMPVQIKP2624-97-53 06:36:00 10.6[facility] RnrhgpnPQJHOYZZEV1396-96-42 06:36:0066.1[facility] 2019-04-10 06:36:009.1[facility] QcinozrFIWORWMSHT8208-45-94 06:36:003.37[facility] QrmsusaTHUCLAQXFP3204-56-20 06:36:009.6[facility] DhokrnnBZGEMOYYEY1879-35-51 06:36:0028.9[facility] PelrmgjJSAJGGOOVC6937-52-05 06:36:0033.1[facility] MJPPCUQGXM0791-57-65 06:36:0085.8[facility] YciirbwJBYJFFMSVU1569-27-25 06:36:00 Test Item Value Reference Range Interpretation Comments MCH (test code = MCH) 28.4 pg 27.0-31.0 [facility] LolusgkPXAGDFPVUY7014-53-63 06:36:96352Zbauwntx HermannHEMATOLOGY 2019-04-10 06:36:0014.6[facility] LemwaraCUORKYNIYY1518-57-41 06:36:004.9[facility] HermannCHEM CPMDF7989-92-18 11:29:000.8[facility] HermannCHEM DHOOV8362-64-24 11:29:0089[facility] HermannCHEM MCWQE7972-90-92 11:29:001.06[facility] HermannCHEM LMUCQ9369-70-23 11:29:006[facility] HermannCHEM ZDVFW1434-15-29 11:29:0030[facility] HermannCHEM FJRKE4227-16-41 11:29:0095[facility] HermannCHEM MTIUG6859-67-63 11:29:004.1[facility] HermannCHEM BFSRB2765-40-09 11:29:29849Ioexihnb HermannCHEM URKVE6546-15-66 11:29:0080[facility] HermannCHEM GADBA4750-61-40 11:29:0016.0 [facility]annCHEM QYSGG4793-29-95 11:29:0011.2[facility] HermannCHEM PANEL 2019-04-09 11:29:0033.0[facility] HermannCHEM FINKT9378-58-90 09:38:008.0[facility] HermannCHEM IDEHU8245-11-78 09:38:0031[facility] HermannCHEM LVZVE1252-32-37 09:38:15203Eoqluzbe HermannCHEM HCQMH2070-37-69 09:38:82134Gkwxsycb HermannCHEM AJJFE4911-64-53 09:38:000.75[facility] HermannCHEM OCEWH7480-41-20 09:38:004.4 [facility] HermannCHEM IUELU0230-61-17 09:38:0095[facility] HermannCHEM PANEL 2019-04-09 09:38:008[facility] HermannCHEM ELQZL7722-27-50 09:38:0087[facility] HermannCHEM GDPHG6563-08-98 09:38:009.4[facility] HermannCHEM HGSNW8722-83-92 09:38:001.5[facility] YegfqbbMZLAPWGEWO3502-85-34 09:38:0071.3[facility] WHNKKHAFAN4557-87-70 09:38:0014.6[facility] JqmisqeAQGGOMAJUQ2168-04-77 09:38:00 0.7[facility] AdvwmvlYGYUXKXASR1265-63-81 09:38:004.8[facility] HermannHEMATOLOGY 2019-04-09 09:38:009.6[facility] MjcuhzpOAINETPIXB9042-22-39 09:38:003.8[facility] ZjdhjflPFAUWAKZQP2772-34-06 09:38:001.0[facility] VmibgfbUAXOHYFADH5419-37-66 09:38:000.3[facility] TisswvrAJYHCKJUXL0861-21-41 09:38:000.6[facility] [place] CDHBVJWSTG6286-84-95 09:38:008.7[facility] WcdqlunMVGENAJIAI3424-16-85 09:38:51500 [facility] CerkddxHWMVHKUKMD7750-08-78 09:38:0014.4[facility] HermannHEMATOLOGY 2019-04-09 09:38:0033.2[facility] HiumrwhTPJSONKOEF8612-60-28 09:38:00 Test Item Value Reference Range Interpretation Comments MCH (test code = MCH) 28.5 pg 27.0-31.0 [facility] UcxariqBNSZBEESBP0114-39-35 09:38:003.76[facility] HermannHEMATOLOGY 2019-04-09 09:38:006.8[facility] XklvmmyKKUGZEQHFJ7071-04-41 09:38:0010.7[facility] XeqkrbyEKEDZNMSGG7877-88-98 09:38:0086.1[facility] FtyhfvkPUMAYYSWDJ0375-01-55 09:38:0032.4[facility] GtxnqdlFGVWQMIHZKNN4870-46-78 11:13:0029[facility] [place] RGYCGKUDVFYM6223-62-45 11:13:77009Eyoaxpdl UalmjscZBPKQLBOIQCD5338-04-24 11:13:007[facility] ZomalzoRQQKYUIVENZX3801-62-05 11:13:003.9[facility] [place] QCQAOPCLFXHM8127-35-52 11:13:001.04[facility] OhcrmywGVYKPQKCIRHP2104-76-95 11:13:0093[facility] RbcumxeVORMXTVPUEUR9198-34-82 11:13:000.6[facility] [place] WRMOJRWLSZEI8338-37-65 11:13:61683Vrzygobz OnlcgjvSFMIMIVBZTLY6830-55-27 11:13:0014.0[facility] KhiwwooVPEINFWABGXL2915-72-03 11:13:0010.5[facility] [place] XEJLBTVXBENT1346-01-92 11:13:0099[facility] WejsplzYXKGVJBHYDMU6427-86-16 11:13:00 31.0[facility] HermannCHEM EZGWR3489-14-43 09:35:003.0[facility] HermannCHEM PANEL 2019-04-08 09:35:001.4[facility] BqlwijuHJWSDGMPCWWI0459-15-00 09:35:0028[facility] BobujjvZWTDNSDIQNQC6873-82-29 09:35:008.0[facility] NvhxxgsNLKSBVUXVKEO4896-28-80 09:35:42916Phdtbpen OoqtfytAXUOTSJRHEGF2897-21-60 09:35:000.70[facility] FIWGKAHQCUJP3983-04-58 09:35:008[facility] DwwkznzJXBHCSPDMZIE4535-36-34 09:35:00 3.7[facility] HzovgchMXQZDXMRBUTF6320-59-34 09:35:92584Fozxrxbm [place] YWVTMEXEXQZC2865-29-93 09:35:0095[facility] UdrcaoxVYMKXVTVMIUE3241-24-29 09:35:00 11.7[facility] DajjwhvNJZEHOGULY1815-33-70 09:35:0011.9[facility] HermannHEMATOLOGY 2019-04-08 09:35:000.7[facility] PdfybovXJOYXNYPMX4102-07-54 09:35:007.6[facility] PvzulftHPFGEIZTLU4602-57-48 09:35:005.2[facility] UtryjtdJHAATWAXNL5610-92-35 09:35:000.8[facility] XoqcchkVQQFOOLXQP2621-04-98 09:35:002.6[facility] QOCZQIPPPH3141-54-35 09:35:000.5[facility] ThrgljoPDDVFIVWCG7522-05-24 09:35:000.2 [facility] DxghwyvGGHHCOMBIP5292-33-25 09:35:0077.2[facility] HermannHEMATOLOGY 2019-04-08 09:35:0033.5[facility] YdxoxmjGLENFXFQXF9751-73-39 09:35:44066Vipjzgnf GghgirjLSBQDJWXXI4455-11-17 09:35:0014.8[facility] ByjtbpvHSIMEAKMYT7438-80-78 09:35:008.9[facility] DwtdwnjLAJIBMMAOX0870-61-94 09:35:006.8[facility] CRHIEUVOHG6823-52-74 09:35:009.9[facility] KidhtzrAZHYWUFULI9457-71-06 09:35:00 3.45[facility] JmoorzlHXHYNUKUVF5736-71-91 09:35:0029.6[facility] HermannHEMATOLOGY 2019-04-08 09:35:00 Test Item Value Reference Range Interpretation Comments MCH (test code = MCH) 28.7 pg 27.0-31.0 [facility] ZqdnskyQCPZDBAFOO7788-13-70 09:35:0085.8[facility] HermannBLOOD BANK YGBUOEH6012-72-42 10:57:00Negative (04/07/19 5:57 AM)[facility] CertusNetannBLOOD BANK LUDVTGF2963-28-77 17:44:00Negative (03/17/19 12:44 PM)[facility] HermannCHEM PANEL 2019-03-17 17:44:00 Test Item Value Reference Range Interpretation Comments B/C Ratio (test code = B/C Ratio) 29 1 6-25 [facility] HermannCHEM YGVAP9264-28-27 17:44:0012.9[facility] HermannCHEM PANEL 2019-03-17 17:44:00 Test Item Value Reference Range Interpretation Comments A/G Ratio (test code = A/G Ratio) 1.0 1 0.7-1.6 [facility]annCHEM TAJKI6833-59-86 17:44:003.3[facility] HermannCHEM PANEL 2019-03-17 17:44:000.4[facility] HermannCHEM MXLAH1145-53-36 17:44:000.70[facility] HermannCHEM BIVIQ8868-37-44 17:44:0020[facility] HermannCHEM KZVIX5386-69-69 17:44:82783Fgqdacwm HermannCHEM UXMPF3354-76-84 17:44:07455Wkbphmeg HermannCHEM SJRCK0296-80-20 17:44:58930Dhbnfrog HermannCHEM TSIPQ9918-56-42 17:44:0026 [facility]annCHEM ESYMM2710-87-23 17:44:007.8[facility] HermannCHEM PANEL 2019-03-17 17:44:003.9[facility] HermannCHEM MKZSJ7846-16-85 17:44:003.4[facility] HermannCHEM VDRLS6445-53-74 17:44:006.7[facility] HermannCHEM YFHUB3853-68-32 17:44:0078[facility] HermannCHEM LQOAU2803-46-25 17:44:0028[facility] HermannCHEM JEXDA2979-08-49 17:44:0024[facility] KhqcyicYNAMICKARJ4288-27-55 17:44:000.1 [facility]annFINE NEEDLE ASPIRATION BY WMGJBMGCQ7136-70-27 12:35:00 Test Item Value Reference Range Interpretation Comments LAB AP CPT CODE (BEAKER) (test code = 21360 2749) COMPREHENSIVE METABOLIC POXNC2879-96-28 10:29:00 Test Item Value Reference Range Interpretation Comments TOTAL PROTEIN 5.9 gm/dL 6.0-8.3 L (BEAKER) (test code = 770) ALBUMIN (BEAKER) 3.2 g/dL 3.5-5.0 L (test code = 1145) ALKALINE PHOSPHATASE 82 U/L 40-150 (BEAKER) (test code = 346) BILIRUBIN TOTAL 0.9 mg/dL 0.2-1.2 (BEAKER) (test code = 377) SODIUM (BEAKER) (test 137 meq/L 136-145 code = 381) POTASSIUM (BEAKER) 3.9 meq/L 3.5-5.1 (test code = 379) CHLORIDE (BEAKER) 104 meq/L 98-107 (test code = 382) CO2 (BEAKER) (test 23 meq/L 22-29 code = 355) BLOOD UREA NITROGEN 7 mg/dL 7-21 (BEAKER) (test code = 354) CREATININE (BEAKER) 0.76 mg/dL 0.57-1.25 (test code = 358) GLUCOSE RANDOM 135 mg/dL 70-105 H (BEAKER) (test code = 652) CALCIUM (BEAKER) 7.9 mg/dL 8.4-10.2 L (test code = 697) AST (SGOT) (BEAKER) 36 U/L 5-34 H (test code = 353) ALT (SGPT) (BEAKER) 28 U/L 6-55 (test code = 347) EGFR (BEAKER) (test 78 mL/min/1.73 ESTIMA IVY GFR IS code = 1092) sq m NOT ACCURATE CREATININE CLEARANCE IN PREDICTING GLOMERULAR FILTRATION RATE . ESTIMATED GFR I S NOT APPLICABLE FOR DIALYSIS PATIEN TS. CBC W/PLT COUNT & AUTO [id number] 10:12:00 Test Item Value Reference Range Interpretation Comments WHITE BLOOD CELL COUNT (BEAKER) 8.3 K/ L 4.0-10.0 (test code = 775) RED BLOOD CELL COUNT (BEAKER) 3.74 M/ L 4.00-5.00 L (test code = 761) HEMOGLOBIN (BEAKER) (test code = 11.3 GM/DL 12.0-15.0 L 410) HEMATOCRIT (BEAKER) (test code = 34.1 % 36.0-45.0 L 411) MEAN CORPUSCULAR VOLUME (BEAKER) 91.2 fL 82.0-99.0 (test code = 753) MEAN CORPUSCULAR HEMOGLOBIN 30.2 pg 27.0-33.0 (BEAKER) (test code = 751) MEAN CORPUSCULAR HEMOGLOBIN CONC 33.1 GM/DL 32.0-36.0 (BEAKER) (test code = 752) RED CELL DISTRIBUTION WIDTH 12.3 % 10.3-14.2 (BEAKER) (test code = 412) PLATELET COUNT (BEAKER) (test 164 K/CU MM 150-430 code = 756) MEAN PLATELET VOLUME (BEAKER) 7.2 fL 6.5-10.5 (test code = 754) NUCLEATED RED BLOOD CELLS 0 /100 WBC 0-0 (BEAKER) (test code = 413) NEUTROPHILS RELATIVE PERCENT 77 % (BEAKER) (test code = 429) LYMPHOCYTES RELATIVE PERCENT 14 % (BEAKER) (test code = 430) MONOCYTES RELATIVE PERCENT 8 % (BEAKER) (test code = 431) EOSINOPHILS RELATIVE PERCENT 1 % (BEAKER) (test code = 432) BASOPHILS RELATIVE PERCENT 0 % (BEAKER) (test code = 437) NEUTROPHILS ABSOLUTE COUNT 6.40 K/ L 1.80-8.00 (BEAKER) (test code = 670) LYMPHOCYTES ABSOLUTE COUNT 1.12 K/ L 1.48-4.50 L (BEAKER) (test code = 414) MONOCYTES ABSOLUTE COUNT (BEAKER) 0.63 K/ L 0.00-1.30 (test code = 415) EOSINOPHILS ABSOLUTE COUNT 0.10 K/ L 0.00-0.50 (BEAKER) (test code = 416) BASOPHILS ABSOLUTE COUNT (BEAKER) 0.03 K/ L 0.00-0.20 (test code = 417) 0.00FINE NEEDLE ASPIRATE (FNA) [id number] 10:00:00 Test Item Value Reference Range Interpretation Comments CYTOLOGY RESULT POINTER See Separate Report (BEAKER) (test code = 2629) HEPATIC FUNCTION [id number] 02:49:00 Test Item Value Reference Range Interpretation Comments TOTAL PROTEIN (BEAKER) (test code = 6.2 gm/dL 6.0-8.3 770) ALBUMIN (BEAKER) (test code = 1145) 3.3 g/dL 3.5-5.0 L BILIRUBIN TOTAL (BEAKER) (test code 0.6 mg/dL 0.2-1.2 = 377) BILIRUBIN DIRECT (BEAKER) (test 0.7 mg/dL 0.1-0.5 H code = 706) ALKALINE PHOSPHATASE (BEAKER) (test 74 U/L 40-150 code = 346) AST (SGOT) (BEAKER) (test code = 18 U/L 5-34 353) ALT (SGPT) (BEAKER) (test code = 16 U/L 6-55 347) [id number] 02:36:00 Test Item Value Reference Range Interpretation Comments MAGNESIUM (BEAKER) (test code = 1.6 mg/dL 1.6-2.6 627) BASIC METABOLIC [id number] 02:36:00 Test Item Value Reference Range Interpretation Comments SODIUM (BEAKER) 140 meq/L 136-145 (test code = 381) POTASSIUM (BEAKER) 4.0 meq/L 3.5-5.1 (test code = 379) CHLORIDE (BEAKER) 104 meq/L 98-107 (test code = 382) CO2 (BEAKER) (test 29 meq/L 22-29 code = 355) BLOOD UREA NITROGEN 4 mg/dL 7-21 L (BEAKER) (test code = 354) CREATININE (BEAKER) 0.67 mg/dL 0.57-1.25 (test code = 358) GLUCOSE RANDOM 89 mg/dL 70-105 (BEAKER) (test code = 652) CALCIUM (BEAKER) 8.4 mg/dL 8.4-10.2 (test code = 697) EGFR (BEAKER) (test 90 mL/min/1.73 ESTIMA IVY GFR IS code = 1092) sq m NOT ACCURATE CREATININE CLEARANCE IN PREDICTING GLOMERULAR FILTRATION RATE . ESTIMATED GFR I S NOT APPLICABLE FOR DIALYSIS PATIEN TS. CBC W/PLT COUNT & AUTO [id number] 02:28:00 Test Item Value Reference Range Interpretation Comments WHITE BLOOD CELL COUNT (BEAKER) 7.6 K/ L 4.0-10.0 (test code = 775) RED BLOOD CELL COUNT (BEAKER) 3.88 M/ L 4.00-5.00 L (test code = 761) HEMOGLOBIN (BEAKER) (test code = 11.8 GM/DL 12.0-15.0 L 410) HEMATOCRIT (BEAKER) (test code = 35.2 % 36.0-45.0 L 411) MEAN CORPUSCULAR VOLUME (BEAKER) 90.7 fL 82.0-99.0 (test code = 753) MEAN CORPUSCULAR HEMOGLOBIN 30.4 pg 27.0-33.0 (BEAKER) (test code = 751) MEAN CORPUSCULAR HEMOGLOBIN CONC 33.5 GM/DL 32.0-36.0 (BEAKER) (test code = 752) RED CELL DISTRIBUTION WIDTH 13.2 % 10.3-14.2 (BEAKER) (test code = 412) PLATELET COUNT (BEAKER) (test 209 K/CU MM 150-430 code = 756) MEAN PLATELET VOLUME (BEAKER) 7.4 fL 6.5-10.5 (test code = 754) NUCLEATED RED BLOOD CELLS 0 /100 WBC 0-0 (BEAKER) (test code = 413) NEUTROPHILS RELATIVE PERCENT 47 % (BEAKER) (test code = 429) LYMPHOCYTES RELATIVE PERCENT 35 % (BEAKER) (test code = 430) MONOCYTES RELATIVE PERCENT 8 % (BEAKER) (test code = 431) EOSINOPHILS RELATIVE PERCENT 9 % (BEAKER) (test code = 432) BASOPHILS RELATIVE PERCENT 1 % (BEAKER) (test code = 437) NEUTROPHILS ABSOLUTE COUNT 3.57 K/ L 1.80-8.00 (BEAKER) (test code = 670) LYMPHOCYTES ABSOLUTE COUNT 2.68 K/ L 1.48-4.50 (BEAKER) (test code = 414) MONOCYTES ABSOLUTE COUNT (BEAKER) 0.57 K/ L 0.00-1.30 (test code = 415) EOSINOPHILS ABSOLUTE COUNT 0.67 K/ L 0.00-0.50 H (BEAKER) (test code = 416) BASOPHILS ABSOLUTE COUNT (BEAKER) 0.09 K/ L 0.00-0.20 (test code = 417) [id number] 17:13:00 Test Item Value Reference Range Interpretation Comments LAB AP CPT CODE (BEAKER) (test code = 90035 2749) [id number] 11:50:00 Test Item Value Reference Range Interpretation Comments LIPASE (BEAKER) (test code = 749) 7 U/L 8-78 L [id number] 11:50:00 Test Item Value Reference Range Interpretation Comments AMYLASE (BEAKER) (test code = 349) 11 U/L 25-125 L [id number] 06:59:00 Test Item Value Reference Range Interpretation Comments MAGNESIUM (BEAKER) (test code = 1.4 mg/dL 1.6-2.6 L 627) BASIC METABOLIC [id number] 06:59:00 Test Item Value Reference Range Interpretation Comments SODIUM (BEAKER) 140 meq/L 136-145 (test code = 381) POTASSIUM (BEAKER) 4.5 meq/L 3.5-5.1 (test code = 379) CHLORIDE (BEAKER) 104 meq/L 98-107 (test code = 382) CO2 (BEAKER) (test 30 meq/L 22-29 H code = 355) BLOOD UREA NITROGEN 4 mg/dL 7-21 L (BEAKER) (test code = 354) CREATININE (BEAKER) 0.72 mg/dL 0.57-1.25 (test code = 358) GLUCOSE RANDOM 101 mg/dL 70-105 (BEAKER) (test code = 652) CALCIUM (BEAKER) 8.6 mg/dL 8.4-10.2 (test code = 697) EGFR (BEAKER) (test 83 mL/min/1.73 ESTIMA IVY GFR IS code = 1092) sq m NOT ACCURATE CREATININE CLEARANCE IN PREDICTING GLOMERULAR FILTRATION RATE . ESTIMATED GFR I S NOT APPLICABLE FOR DIALYSIS PATIEN TS. HEPATIC FUNCTION [id number] 06:59:00 Test Item Value Reference Range Interpretation Comments TOTAL PROTEIN (BEAKER) (test code = 6.3 gm/dL 6.0-8.3 770) ALBUMIN (BEAKER) (test code = 1145) 3.4 g/dL 3.5-5.0 L BILIRUBIN TOTAL (BEAKER) (test code 0.6 mg/dL 0.2-1.2 = 377) BILIRUBIN DIRECT (BEAKER) (test 0.3 mg/dL 0.1-0.5 code = 706) ALKALINE PHOSPHATASE (BEAKER) (test 74 U/L 40-150 code = 346) AST (SGOT) (BEAKER) (test code = 21 U/L 5-34 353) ALT (SGPT) (BEAKER) (test code = 19 U/L 6-55 347) CBC W/PLT COUNT & AUTO [id number] 06:23:00 Test Item Value Reference Range Interpretation Comments WHITE BLOOD CELL COUNT (BEAKER) 8.1 K/ L 4.0-10.0 (test code = 775) RED BLOOD CELL COUNT (BEAKER) 3.91 M/ L 4.00-5.00 L (test code = 761) HEMOGLOBIN (BEAKER) (test code = 11.8 GM/DL 12.0-15.0 L 410) HEMATOCRIT (BEAKER) (test code = 35.8 % 36.0-45.0 L 411) MEAN CORPUSCULAR VOLUME (BEAKER) 91.6 fL 82.0-99.0 (test code = 753) MEAN CORPUSCULAR HEMOGLOBIN 30.1 pg 27.0-33.0 (BEAKER) (test code = 751) MEAN CORPUSCULAR HEMOGLOBIN CONC 32.9 GM/DL 32.0-36.0 (BEAKER) (test code = 752) RED CELL DISTRIBUTION WIDTH 13.3 % 10.3-14.2 (BEAKER) (test code = 412) PLATELET COUNT (BEAKER) (test 185 K/CU MM 150-430 code = 756) MEAN PLATELET VOLUME (BEAKER) 7.9 fL 6.5-10.5 (test code = 754) NUCLEATED RED BLOOD CELLS 0 /100 WBC 0-0 (BEAKER) (test code = 413) NEUTROPHILS RELATIVE PERCENT 59 % (BEAKER) (test code = 429) LYMPHOCYTES RELATIVE PERCENT 24 % (BEAKER) (test code = 430) MONOCYTES RELATIVE PERCENT 8 % (BEAKER) (test code = 431) EOSINOPHILS RELATIVE PERCENT 8 % (BEAKER) (test code = 432) BASOPHILS RELATIVE PERCENT 1 % (BEAKER) (test code = 437) NEUTROPHILS ABSOLUTE COUNT 4.79 K/ L 1.80-8.00 (BEAKER) (test code = 670) LYMPHOCYTES ABSOLUTE COUNT 1.92 K/ L 1.48-4.50 (BEAKER) (test code = 414) MONOCYTES ABSOLUTE COUNT (BEAKER) 0.67 K/ L 0.00-1.30 (test code = 415) EOSINOPHILS ABSOLUTE COUNT 0.63 K/ L 0.00-0.50 H (BEAKER) (test code = 416) BASOPHILS ABSOLUTE COUNT (BEAKER) 0.05 K/ L 0.00-0.20 (test code = 417) 0.00CYTOLOGY [id number] 11:00:00 Test Item Value Reference Range Interpretation Comments CYTOLOGY RESULT POINTER See Separate Report (BEAKER) (test code = 2629) [id number] 06:18:00 Test Item Value Reference Range Interpretation Comments MAGNESIUM (BEAKER) (test code = 1.6 mg/dL 1.6-2.6 627) BASIC METABOLIC [id number] 06:18:00 Test Item Value Reference Range Interpretation Comments SODIUM (BEAKER) 140 meq/L 136-145 (test code = 381) POTASSIUM (BEAKER) 4.1 meq/L 3.5-5.1 (test code = 379) CHLORIDE (BEAKER) 107 meq/L 98-107 (test code = 382) CO2 (BEAKER) (test 25 meq/L 22-29 code = 355) BLOOD UREA NITROGEN 6 mg/dL 7-21 L (BEAKER) (test code = 354) CREATININE (BEAKER) 0.72 mg/dL 0.57-1.25 (test code = 358) GLUCOSE RANDOM 78 mg/dL 70-105 (BEAKER) (test code = 652) CALCIUM (BEAKER) 8.0 mg/dL 8.4-10.2 L (test code = 697) EGFR (BEAKER) (test 83 mL/min/1.73 ESTIMA IVY GFR IS code = 1092) sq m NOT ACCURATE CREATININE CLEARANCE IN PREDICTING GLOMERULAR FILTRATION RATE . ESTIMATED GFR I S NOT APPLICABLE FOR DIALYSIS PATIEN TS. HEPATIC FUNCTION [id number] 06:18:00 Test Item Value Reference Range Interpretation Comments TOTAL PROTEIN (BEAKER) (test code = 6.0 gm/dL 6.0-8.3 770) ALBUMIN (BEAKER) (test code = 1145) 3.2 g/dL 3.5-5.0 L BILIRUBIN TOTAL (BEAKER) (test code 0.5 mg/dL 0.2-1.2 = 377) BILIRUBIN DIRECT (BEAKER) (test 0.3 mg/dL 0.1-0.5 code = 706) ALKALINE PHOSPHATASE (BEAKER) (test 71 U/L 40-150 code = 346) AST (SGOT) (BEAKER) (test code = 23 U/L 5-34 353) ALT (SGPT) (BEAKER) (test code = 20 U/L 6-55 347) CBC W/PLT COUNT & AUTO [id number] 06:04:00 Test Item Value Reference Range Interpretation Comments WHITE BLOOD CELL COUNT (BEAKER) 7.9 K/ L 4.0-10.0 (test code = 775) RED BLOOD CELL COUNT (BEAKER) 3.60 M/ L 4.00-5.00 L (test code = 761) HEMOGLOBIN (BEAKER) (test code = 11.3 GM/DL 12.0-15.0 L 410) HEMATOCRIT (BEAKER) (test code = 32.6 % 36.0-45.0 L 411) MEAN CORPUSCULAR VOLUME (BEAKER) 90.7 fL 82.0-99.0 (test code = 753) MEAN CORPUSCULAR HEMOGLOBIN 31.4 pg 27.0-33.0 (BEAKER) (test code = 751) MEAN CORPUSCULAR HEMOGLOBIN CONC 34.6 GM/DL 32.0-36.0 (BEAKER) (test code = 752) RED CELL DISTRIBUTION WIDTH 12.9 % 10.3-14.2 (BEAKER) (test code = 412) PLATELET COUNT (BEAKER) (test 175 K/CU MM 150-430 code = 756) MEAN PLATELET VOLUME (BEAKER) 7.9 fL 6.5-10.5 (test code = 754) NUCLEATED RED BLOOD CELLS 0 /100 WBC 0-0 (BEAKER) (test code = 413) NEUTROPHILS RELATIVE PERCENT 65 % (BEAKER) (test code = 429) LYMPHOCYTES RELATIVE PERCENT 26 % (BEAKER) (test code = 430) MONOCYTES RELATIVE PERCENT 7 % (BEAKER) (test code = 431) EOSINOPHILS RELATIVE PERCENT 2 % (BEAKER) (test code = 432) BASOPHILS RELATIVE PERCENT 1 % (BEAKER) (test code = 437) NEUTROPHILS ABSOLUTE COUNT 5.11 K/ L 1.80-8.00 (BEAKER) (test code = 670) LYMPHOCYTES ABSOLUTE COUNT 2.04 K/ L 1.48-4.50 (BEAKER) (test code = 414) MONOCYTES ABSOLUTE COUNT (BEAKER) 0.52 K/ L 0.00-1.30 (test code = 415) EOSINOPHILS ABSOLUTE COUNT 0.13 K/ L 0.00-0.50 (BEAKER) (test code = 416) BASOPHILS ABSOLUTE COUNT (BEAKER) 0.06 K/ L 0.00-0.20 (test code = 417) 0.00CBC W/PLT COUNT & AUTO [id number] 07:11:00 Test Item Value Reference Range Interpretation Comments WHITE BLOOD CELL COUNT (BEAKER) 4.7 K/ L 4.0-10.0 (test code = 775) RED BLOOD CELL COUNT (BEAKER) 4.03 M/ L 4.00-5.00 (test code = 761) HEMOGLOBIN (BEAKER) (test code = 12.0 GM/DL 12.0-15.0 410) HEMATOCRIT (BEAKER) (test code = 37.2 % 36.0-45.0 411) MEAN CORPUSCULAR VOLUME (BEAKER) 92.4 fL 82.0-99.0 (test code = 753) MEAN CORPUSCULAR HEMOGLOBIN 29.7 pg 27.0-33.0 (BEAKER) (test code = 751) MEAN CORPUSCULAR HEMOGLOBIN CONC 32.1 GM/DL 32.0-36.0 (BEAKER) (test code = 752) RED CELL DISTRIBUTION WIDTH 12.0 % 10.3-14.2 (BEAKER) (test code = 412) PLATELET COUNT (BEAKER) (test 197 K/CU MM 150-430 code = 756) MEAN PLATELET VOLUME (BEAKER) 8.0 fL 6.5-10.5 (test code = 754) NUCLEATED RED BLOOD CELLS 0 /100 WBC 0-0 (BEAKER) (test code = 413) NEUTROPHILS RELATIVE PERCENT 31 % (BEAKER) (test code = 429) LYMPHOCYTES RELATIVE PERCENT 50 % (BEAKER) (test code = 430) MONOCYTES RELATIVE PERCENT 11 % (BEAKER) (test code = 431) EOSINOPHILS RELATIVE PERCENT 6 % (BEAKER) (test code = 432) BASOPHILS RELATIVE PERCENT 2 % (BEAKER) (test code = 437) NEUTROPHILS ABSOLUTE COUNT 1.45 K/ L 1.80-8.00 L (BEAKER) (test code = 670) LYMPHOCYTES ABSOLUTE COUNT 2.33 K/ L 1.48-4.50 (BEAKER) (test code = 414) MONOCYTES ABSOLUTE COUNT (BEAKER) 0.50 K/ L 0.00-1.30 (test code = 415) EOSINOPHILS ABSOLUTE COUNT 0.28 K/ L 0.00-0.50 (BEAKER) (test code = 416) BASOPHILS ABSOLUTE COUNT (BEAKER) 0.09 K/ L 0.00-0.20 (test code = 417) 0.00(MANUAL DIFFERENTIAL)2017-01-29 07:11:00 Test Item Value Reference Range Interpretation Comments TOTAL COUNTED (BEAKER) (test code = 1351) [id number] 05:47:00 Test Item Value Reference Range Interpretation Comments MAGNESIUM (BEAKER) (test code = 1.7 mg/dL 1.6-2.6 627) BASIC METABOLIC [id number] 05:47:00 Test Item Value Reference Range Interpretation Comments SODIUM (BEAKER) 141 meq/L 136-145 (test code = 381) POTASSIUM (BEAKER) 4.0 meq/L 3.5-5.1 (test code = 379) CHLORIDE (BEAKER) 104 meq/L 98-107 (test code = 382) CO2 (BEAKER) (test 31 meq/L 22-29 H code = 355) BLOOD UREA NITROGEN 4 mg/dL 7-21 L (BEAKER) (test code = 354) CREATININE (BEAKER) 0.79 mg/dL 0.57-1.25 (test code = 358) GLUCOSE RANDOM 83 mg/dL 70-105 (BEAKER) (test code = 652) CALCIUM (BEAKER) 8.8 mg/dL 8.4-10.2 (test code = 697) EGFR (BEAKER) (test 75 mL/min/1.73 ESTIMA IVY GFR IS code = 1092) sq m NOT ACCURATE CREATININE CLEARANCE IN PREDICTING GLOMERULAR FILTRATION RATE . ESTIMATED GFR I S NOT APPLICABLE FOR DIALYSIS PATIEN TS. HEPATIC FUNCTION [id number] 05:47:00 Test Item Value Reference Range Interpretation Comments TOTAL PROTEIN (BEAKER) (test code = 6.4 gm/dL 6.0-8.3 770) ALBUMIN (BEAKER) (test code = 1145) 3.5 g/dL 3.5-5.0 BILIRUBIN TOTAL (BEAKER) (test code 0.4 mg/dL 0.2-1.2 = 377) BILIRUBIN DIRECT (BEAKER) (test 0.2 mg/dL 0.1-0.5 code = 706) ALKALINE PHOSPHATASE (BEAKER) (test 80 U/L 40-150 code = 346) AST (SGOT) (BEAKER) (test code = 26 U/L 5-34 353) ALT (SGPT) (BEAKER) (test code = 24 U/L 6-55 347) CBC W/PLT COUNT & AUTO [id number] 10:53:00 Test Item Value Reference Range Interpretation Comments WHITE BLOOD CELL COUNT (BEAKER) 5.2 K/ L 4.0-10.0 (test code = 775) RED BLOOD CELL COUNT (BEAKER) 3.86 M/ L 4.00-5.00 L (test code = 761) HEMOGLOBIN (BEAKER) (test code = 11.8 GM/DL 12.0-15.0 L 410) HEMATOCRIT (BEAKER) (test code = 35.1 % 36.0-45.0 L 411) MEAN CORPUSCULAR VOLUME (BEAKER) 91.0 fL 82.0-99.0 (test code = 753) MEAN CORPUSCULAR HEMOGLOBIN 30.6 pg 27.0-33.0 (BEAKER) (test code = 751) MEAN CORPUSCULAR HEMOGLOBIN CONC 33.7 GM/DL 32.0-36.0 (BEAKER) (test code = 752) RED CELL DISTRIBUTION WIDTH 13.2 % 10.3-14.2 (BEAKER) (test code = 412) PLATELET COUNT (BEAKER) (test 189 K/CU MM 150-430 code = 756) MEAN PLATELET VOLUME (BEAKER) 8.3 fL 6.5-10.5 (test code = 754) NUCLEATED RED BLOOD CELLS 0 /100 WBC 0-0 (BEAKER) (test code = 413) NEUTROPHILS RELATIVE PERCENT 36 % (BEAKER) (test code = 429) LYMPHOCYTES RELATIVE PERCENT 44 % (BEAKER) (test code = 430) MONOCYTES RELATIVE PERCENT 12 % (BEAKER) (test code = 431) EOSINOPHILS RELATIVE PERCENT 7 % (BEAKER) (test code = 432) BASOPHILS RELATIVE PERCENT 1 % (BEAKER) (test code = 437) NEUTROPHILS ABSOLUTE COUNT 1.88 K/ L 1.80-8.00 (BEAKER) (test code = 670) LYMPHOCYTES ABSOLUTE COUNT 2.27 K/ L 1.48-4.50 (BEAKER) (test code = 414) MONOCYTES ABSOLUTE COUNT (BEAKER) 0.60 K/ L 0.00-1.30 (test code = 415) EOSINOPHILS ABSOLUTE COUNT 0.37 K/ L 0.00-0.50 (BEAKER) (test code = 416) BASOPHILS ABSOLUTE COUNT (BEAKER) 0.06 K/ L 0.00-0.20 (test code = 417) 0.00(MANUAL DIFFERENTIAL)2017-01-28 10:53:00 Test Item Value Reference Range Interpretation Comments TOTAL COUNTED (BEAKER) (test code = 1351) WBC MORPHOLOGY (BEAKER) (test code = Normal 487) PLT MORPHOLOGY (BEAKER) (test code = Normal 486) RBC MORPHOLOGY (BEAKER) (test code = Normal 762) [id number] 06:40:00 Test Item Value Reference Range Interpretation Comments MAGNESIUM (BEAKER) (test code = 1.7 mg/dL 1.6-2.6 627) BASIC METABOLIC [id number] 06:40:00 Test Item Value Reference Range Interpretation Comments SODIUM (BEAKER) 140 meq/L 136-145 (test code = 381) POTASSIUM (BEAKER) 4.1 meq/L 3.5-5.1 (test code = 379) CHLORIDE (BEAKER) 104 meq/L 98-107 (test code = 382) CO2 (BEAKER) (test 29 meq/L 22-29 code = 355) BLOOD UREA NITROGEN 6 mg/dL 7-21 L (BEAKER) (test code = 354) CREATININE (BEAKER) 0.81 mg/dL 0.57-1.25 (test code = 358) GLUCOSE RANDOM 95 mg/dL 70-105 (BEAKER) (test code = 652) CALCIUM (BEAKER) 8.2 mg/dL 8.4-10.2 L (test code = 697) EGFR (BEAKER) (test 73 mL/min/1.73 ESTIMA IVY GFR IS code = 1092) sq m NOT ACCURATE CREATININE CLEARANCE IN PREDICTING GLOMERULAR FILTRATION RATE . ESTIMATED GFR I S NOT APPLICABLE FOR DIALYSIS PATIEN TS. HEPATIC FUNCTION [id number] 06:40:00 Test Item Value Reference Range Interpretation Comments TOTAL PROTEIN (BEAKER) (test code = 6.1 gm/dL 6.0-8.3 770) ALBUMIN (BEAKER) (test code = 1145) 3.4 g/dL 3.5-5.0 L BILIRUBIN TOTAL (BEAKER) (test code 0.4 mg/dL 0.2-1.2 = 377) BILIRUBIN DIRECT (BEAKER) (test 0.2 mg/dL 0.1-0.5 code = 706) ALKALINE PHOSPHATASE (BEAKER) (test 80 U/L 40-150 code = 346) AST (SGOT) (BEAKER) (test code = 25 U/L 5-34 353) ALT (SGPT) (BEAKER) (test code = 22 U/L 6-55 347) CBC W/PLT COUNT & AUTO [id number] 10:14:00 Test Item Value Reference Range Interpretation Comments WHITE BLOOD CELL COUNT (BEAKER) 5.8 K/ L 4.0-10.0 (test code = 775) RED BLOOD CELL COUNT (BEAKER) 4.06 M/ L 4.00-5.00 (test code = 761) HEMOGLOBIN (BEAKER) (test code = 12.8 GM/DL 12.0-15.0 410) HEMATOCRIT (BEAKER) (test code = 37.7 % 36.0-45.0 411) MEAN CORPUSCULAR VOLUME (BEAKER) 93.0 fL 82.0-99.0 (test code = 753) MEAN CORPUSCULAR HEMOGLOBIN 31.5 pg 27.0-33.0 (BEAKER) (test code = 751) MEAN CORPUSCULAR HEMOGLOBIN CONC 33.8 GM/DL 32.0-36.0 (BEAKER) (test code = 752) RED CELL DISTRIBUTION WIDTH 12.1 % 10.3-14.2 (BEAKER) (test code = 412) PLATELET COUNT (BEAKER) (test 185 K/CU MM 150-430 code = 756) MEAN PLATELET VOLUME (BEAKER) 8.6 fL 6.5-10.5 (test code = 754) NUCLEATED RED BLOOD CELLS 0 /100 WBC 0-0 (BEAKER) (test code = 413) NEUTROPHILS RELATIVE PERCENT 35 % (BEAKER) (test code = 429) LYMPHOCYTES RELATIVE PERCENT 48 % (BEAKER) (test code = 430) MONOCYTES RELATIVE PERCENT 10 % (BEAKER) (test code = 431) EOSINOPHILS RELATIVE PERCENT 5 % (BEAKER) (test code = 432) BASOPHILS RELATIVE PERCENT 1 % (BEAKER) (test code = 437) NEUTROPHILS ABSOLUTE COUNT 2.06 K/ L 1.80-8.00 (BEAKER) (test code = 670) LYMPHOCYTES ABSOLUTE COUNT 2.80 K/ L 1.48-4.50 (BEAKER) (test code = 414) MONOCYTES ABSOLUTE COUNT (BEAKER) 0.58 K/ L 0.00-1.30 (test code = 415) EOSINOPHILS ABSOLUTE COUNT 0.32 K/ L 0.00-0.50 (BEAKER) (test code = 416) BASOPHILS ABSOLUTE COUNT (BEAKER) 0.07 K/ L 0.00-0.20 (test code = 417) 0.00(MANUAL DIFFERENTIAL)[id number] 10:14:00 Test Item Value Reference Range Interpretation Comments TOTAL COUNTED (BEAKER) (test code = 1351) WBC MORPHOLOGY (BEAKER) (test code = Normal 487) PLT MORPHOLOGY (BEAKER) (test code = Normal 486) RBC MORPHOLOGY (BEAKER) (test code = Normal 762) [id number] 06:02:00 Test Item Value Reference Range Interpretation Comments MAGNESIUM (BEAKER) (test code = 1.7 mg/dL 1.6-2.6 627) BASIC METABOLIC [id number] 06:02:00 Test Item Value Reference Range Interpretation Comments SODIUM (BEAKER) 140 meq/L 136-145 (test code = 381) POTASSIUM (BEAKER) 4.2 meq/L 3.5-5.1 (test code = 379) CHLORIDE (BEAKER) 103 meq/L 98-107 (test code = 382) CO2 (BEAKER) (test 28 meq/L 22-29 code = 355) BLOOD UREA NITROGEN 6 mg/dL 7-21 L (BEAKER) (test code = 354) CREATININE (BEAKER) 0.79 mg/dL 0.57-1.25 (test code = 358) GLUCOSE RANDOM 76 mg/dL 70-105 (BEAKER) (test code = 652) CALCIUM (BEAKER) 8.9 mg/dL 8.4-10.2 (test code = 697) EGFR (BEAKER) (test 75 mL/min/1.73 ESTIMA IVY GFR IS code = 1092) sq m NOT ACCURATE CREATININE CLEARANCE IN PREDICTING GLOMERULAR FILTRATION RATE . ESTIMATED GFR I S NOT APPLICABLE FOR DIALYSIS PATIEN TS. HEPATIC FUNCTION [id number] 06:02:00 Test Item Value Reference Range Interpretation Comments TOTAL PROTEIN (BEAKER) (test code = 6.9 gm/dL 6.0-8.3 770) ALBUMIN (BEAKER) (test code = 1145) 3.8 g/dL 3.5-5.0 BILIRUBIN TOTAL (BEAKER) (test code 0.5 mg/dL 0.2-1.2 = 377) BILIRUBIN DIRECT (BEAKER) (test 0.2 mg/dL 0.1-0.5 code = 706) ALKALINE PHOSPHATASE (BEAKER) (test 92 U/L 40-150 code = 346) AST (SGOT) (BEAKER) (test code = 29 U/L 5-34 353) ALT (SGPT) (BEAKER) (test code = 24 U/L 6-55 347) CBC W/PLT COUNT & AUTO [id number] 12:42:00 Test Item Value Reference Range Interpretation Comments WHITE BLOOD CELL COUNT (BEAKER) 6.0 K/ L 4.0-10.0 (test code = 775) RED BLOOD CELL COUNT (BEAKER) 3.88 M/ L 4.00-5.00 L (test code = 761) HEMOGLOBIN (BEAKER) (test code = 12.3 GM/DL 12.0-15.0 410) HEMATOCRIT (BEAKER) (test code = 36.3 % 36.0-45.0 411) MEAN CORPUSCULAR VOLUME (BEAKER) 93.6 fL 82.0-99.0 (test code = 753) MEAN CORPUSCULAR HEMOGLOBIN 31.8 pg 27.0-33.0 (BEAKER) (test code = 751) MEAN CORPUSCULAR HEMOGLOBIN CONC 34.0 GM/DL 32.0-36.0 (BEAKER) (test code = 752) RED CELL DISTRIBUTION WIDTH 12.3 % 10.3-14.2 (BEAKER) (test code = 412) PLATELET COUNT (BEAKER) (test 180 K/CU MM 150-430 code = 756) MEAN PLATELET VOLUME (BEAKER) 9.0 fL 6.5-10.5 (test code = 754) NUCLEATED RED BLOOD CELLS 0 /100 WBC 0-0 (BEAKER) (test code = 413) NEUTROPHILS RELATIVE PERCENT 42 % (BEAKER) (test code = 429) LYMPHOCYTES RELATIVE PERCENT 42 % (BEAKER) (test code = 430) MONOCYTES RELATIVE PERCENT 9 % (BEAKER) (test code = 431) EOSINOPHILS RELATIVE PERCENT 6 % (BEAKER) (test code = 432) BASOPHILS RELATIVE PERCENT 1 % (BEAKER) (test code = 437) NEUTROPHILS ABSOLUTE COUNT 2.50 K/ L 1.80-8.00 (BEAKER) (test code = 670) LYMPHOCYTES ABSOLUTE COUNT 2.56 K/ L 1.48-4.50 (BEAKER) (test code = 414) MONOCYTES ABSOLUTE COUNT (BEAKER) 0.55 K/ L 0.00-1.30 (test code = 415) EOSINOPHILS ABSOLUTE COUNT 0.34 K/ L 0.00-0.50 (BEAKER) (test code = 416) BASOPHILS ABSOLUTE COUNT (BEAKER) 0.08 K/ L 0.00-0.20 (test code = 417) [id number] 08:48:00 Test Item Value Reference Range Interpretation Comments MAGNESIUM (BEAKER) (test code = 1.7 mg/dL 1.6-2.6 627) BASIC METABOLIC [id number] 08:48:00 Test Item Value Reference Range Interpretation Comments SODIUM (BEAKER) 139 meq/L 136-145 (test code = 381) POTASSIUM (BEAKER) 4.1 meq/L 3.5-5.1 (test code = 379) CHLORIDE (BEAKER) 105 meq/L 98-107 (test code = 382) CO2 (BEAKER) (test 25 meq/L 22-29 code = 355) BLOOD UREA NITROGEN 9 mg/dL 7-21 (BEAKER) (test code = 354) CREATININE (BEAKER) 0.81 mg/dL 0.57-1.25 (test code = 358) GLUCOSE RANDOM 72 mg/dL 70-105 (BEAKER) (test code = 652) CALCIUM (BEAKER) 8.3 mg/dL 8.4-10.2 L (test code = 697) EGFR (BEAKER) (test 73 mL/min/1.73 ESTIMA IVY GFR IS code = 1092) sq m NOT ACCURATE CREATININE CLEARANCE IN PREDICTING GLOMERULAR FILTRATION RATE . ESTIMATED GFR I S NOT APPLICABLE FOR DIALYSIS PATIEN TS. HEPATIC FUNCTION [id number] 08:48:00 Test Item Value Reference Range Interpretation Comments TOTAL PROTEIN (BEAKER) (test code = 6.3 gm/dL 6.0-8.3 770) ALBUMIN (BEAKER) (test code = 1145) 3.4 g/dL 3.5-5.0 L BILIRUBIN TOTAL (BEAKER) (test code 0.5 mg/dL 0.2-1.2 = 377) BILIRUBIN DIRECT (BEAKER) (test 0.2 mg/dL 0.1-0.5 code = 706) ALKALINE PHOSPHATASE (BEAKER) (test 88 U/L 40-150 code = 346) AST (SGOT) (BEAKER) (test code = 22 U/L 5-34 353) ALT (SGPT) (BEAKER) (test code = 21 U/L 6-55 347) [id number] 22:30:00 Test Item Value Reference Range Interpretation Comments LIPASE (BEAKER) (test code = 749) 11 U/L 8-78 [id number] 22:30:00 Test Item Value Reference Range Interpretation Comments AMYLASE (BEAKER) (test code = 349) 10 U/L 25-125 L CBC W/PLT COUNT & AUTO [id number] 07:25:00 Test Item Value Reference Range Interpretation Comments WHITE BLOOD CELL COUNT (BEAKER) 6.3 K/ L 4.0-10.0 (test code = 775) RED BLOOD CELL COUNT (BEAKER) 3.90 M/ L 4.00-5.00 L (test code = 761) HEMOGLOBIN (BEAKER) (test code = 11.3 GM/DL 12.0-15.0 L 410) HEMATOCRIT (BEAKER) (test code = 36.3 % 36.0-45.0 411) MEAN CORPUSCULAR VOLUME (BEAKER) 93.3 fL 82.0-99.0 (test code = 753) MEAN CORPUSCULAR HEMOGLOBIN 29.0 pg 27.0-33.0 (BEAKER) (test code = 751) MEAN CORPUSCULAR HEMOGLOBIN CONC 31.1 GM/DL 32.0-36.0 L (BEAKER) (test code = 752) RED CELL DISTRIBUTION WIDTH 12.2 % 10.3-14.2 (BEAKER) (test code = 412) PLATELET COUNT (BEAKER) (test 187 K/CU MM 150-430 code = 756) MEAN PLATELET VOLUME (BEAKER) 8.6 fL 6.5-10.5 (test code = 754) NUCLEATED RED BLOOD CELLS 0 /100 WBC 0-0 (BEAKER) (test code = 413) NEUTROPHILS RELATIVE PERCENT 61 % (BEAKER) (test code = 429) LYMPHOCYTES RELATIVE PERCENT 29 % (BEAKER) (test code = 430) MONOCYTES RELATIVE PERCENT 6 % (BEAKER) (test code = 431) EOSINOPHILS RELATIVE PERCENT 2 % (BEAKER) (test code = 432) BASOPHILS RELATIVE PERCENT 1 % (BEAKER) (test code = 437) NEUTROPHILS ABSOLUTE COUNT 3.90 K/ L 1.80-8.00 (BEAKER) (test code = 670) LYMPHOCYTES ABSOLUTE COUNT 1.85 K/ L 1.48-4.50 (BEAKER) (test code = 414) MONOCYTES ABSOLUTE COUNT (BEAKER) 0.40 K/ L 0.00-1.30 (test code = 415) EOSINOPHILS ABSOLUTE COUNT 0.13 K/ L 0.00-0.50 (BEAKER) (test code = 416) BASOPHILS ABSOLUTE COUNT (BEAKER) 0.06 K/ L 0.00-0.20 (test code = 417) [id number] 06:51:00 Test Item Value Reference Range Interpretation Comments PHOSPHORUS (BEAKER) (test code = 5.0 mg/dL 2.3-4.7 H 604) [id number] 06:51:00 Test Item Value Reference Range Interpretation Comments MAGNESIUM (BEAKER) (test code = 1.8 mg/dL 1.6-2.6 627) BASIC METABOLIC [id number] 06:51:00 Test Item Value Reference Range Interpretation Comments SODIUM (BEAKER) 142 meq/L 136-145 (test code = 381) POTASSIUM (BEAKER) 4.4 meq/L 3.5-5.1 (test code = 379) CHLORIDE (BEAKER) 105 meq/L 98-107 (test code = 382) CO2 (BEAKER) (test 30 meq/L 22-29 H code = 355) BLOOD UREA NITROGEN 8 mg/dL 7-21 (BEAKER) (test code = 354) CREATININE (BEAKER) 0.83 mg/dL 0.57-1.25 (test code = 358) GLUCOSE RANDOM 86 mg/dL 70-105 (BEAKER) (test code = 652) CALCIUM (BEAKER) 8.4 mg/dL 8.4-10.2 (test code = 697) EGFR (BEAKER) (test 71 mL/min/1.73 ESTIMA IVY GFR IS code = 1092) sq m NOT ACCURATE CREATININE CLEARANCE IN PREDICTING GLOMERULAR FILTRATION RATE . ESTIMATED GFR I S NOT APPLICABLE FOR DIALYSIS PATIEN TS. HEPATIC FUNCTION [id number] 06:51:00 Test Item Value Reference Range Interpretation Comments TOTAL PROTEIN (BEAKER) (test code = 6.3 gm/dL 6.0-8.3 770) ALBUMIN (BEAKER) (test code = 1145) 3.5 g/dL 3.5-5.0 BILIRUBIN TOTAL (BEAKER) (test code 0.5 mg/dL 0.2-1.2 = 377) BILIRUBIN DIRECT (BEAKER) (test 0.2 mg/dL 0.1-0.5 code = 706) ALKALINE PHOSPHATASE (BEAKER) (test 94 U/L 40-150 code = 346) AST (SGOT) (BEAKER) (test code = 23 U/L 5-34 353) ALT (SGPT) (BEAKER) (test code = 24 U/L 6-55 347) BASIC METABOLIC [id number] 12:27:00 Test Item Value Reference Range Interpretation Comments SODIUM (BEAKER) 139 meq/L 136-145 (test code = 381) POTASSIUM (BEAKER) 4.1 meq/L 3.5-5.1 (test code = 379) CHLORIDE (BEAKER) 103 meq/L 98-107 (test code = 382) CO2 (BEAKER) (test 26 meq/L 22-29 code = 355) BLOOD UREA NITROGEN 7 mg/dL 7-21 (BEAKER) (test code = 354) CREATININE (BEAKER) 0.81 mg/dL 0.57-1.25 (test code = 358) GLUCOSE RANDOM 82 mg/dL 70-105 (BEAKER) (test code = 652) CALCIUM (BEAKER) 8.4 mg/dL 8.4-10.2 (test code = 697) EGFR (BEAKER) (test 73 mL/min/1.73 ESTIMA IVY GFR IS code = 1092) sq m NOT ACCURATE CREATININE CLEARANCE IN PREDICTING GLOMERULAR FILTRATION RATE . ESTIMATED GFR I S NOT APPLICABLE FOR DIALYSIS PATIEN TS. CALCIUM, [id number] 11:57:00 Test Item Value Reference Range Interpretation Comments CALCIUM IONIZED (BEAKER) (test 1.03 mmol/L 1.12-1.27 L code = 698) PH, BLOOD (BEAKER) (test code = 7.47 1810) [id number] 11:31:00 Test Item Value Reference Range Interpretation Comments PHOSPHORUS (BEAKER) (test code = 4.7 mg/dL 2.3-4.7 604) [id number] 11:31:00 Test Item Value Reference Range Interpretation Comments MAGNESIUM (BEAKER) (test code = 1.8 mg/dL 1.6-2.6 627) HEPATIC FUNCTION [id number] 11:31:00 Test Item Value Reference Range Interpretation Comments TOTAL PROTEIN (BEAKER) (test code = 6.3 gm/dL 6.0-8.3 770) ALBUMIN (BEAKER) (test code = 1145) 3.6 g/dL 3.5-5.0 BILIRUBIN TOTAL (BEAKER) (test code 0.5 mg/dL 0.2-1.2 = 377) BILIRUBIN DIRECT (BEAKER) (test 0.2 mg/dL 0.1-0.5 code = 706) ALKALINE PHOSPHATASE (BEAKER) (test 103 U/L 40-150 code = 346) AST (SGOT) (BEAKER) (test code = 23 U/L 5-34 353) ALT (SGPT) (BEAKER) (test code = 24 U/L 6-55 347) CBC W/PLT COUNT & AUTO [id number] 11:18:00 Test Item Value Reference Range Interpretation Comments WHITE BLOOD CELL COUNT (BEAKER) 5.4 K/ L 4.0-10.0 (test code = 775) RED BLOOD CELL COUNT (BEAKER) 3.98 M/ L 4.00-5.00 L (test code = 761) HEMOGLOBIN (BEAKER) (test code = 12.1 GM/DL 12.0-15.0 410) HEMATOCRIT (BEAKER) (test code = 36.2 % 36.0-45.0 411) MEAN CORPUSCULAR VOLUME (BEAKER) 90.9 fL 82.0-99.0 (test code = 753) MEAN CORPUSCULAR HEMOGLOBIN 30.5 pg 27.0-33.0 (BEAKER) (test code = 751) MEAN CORPUSCULAR HEMOGLOBIN CONC 33.5 GM/DL 32.0-36.0 (BEAKER) (test code = 752) RED CELL DISTRIBUTION WIDTH 13.0 % 10.3-14.2 (BEAKER) (test code = 412) PLATELET COUNT (BEAKER) (test 182 K/CU MM 150-430 code = 756) MEAN PLATELET VOLUME (BEAKER) 8.3 fL 6.5-10.5 (test code = 754) NUCLEATED RED BLOOD CELLS 0 /100 WBC 0-0 (BEAKER) (test code = 413) NEUTROPHILS RELATIVE PERCENT 54 % (BEAKER) (test code = 429) LYMPHOCYTES RELATIVE PERCENT 32 % (BEAKER) (test code = 430) MONOCYTES RELATIVE PERCENT 8 % (BEAKER) (test code = 431) EOSINOPHILS RELATIVE PERCENT 5 % (BEAKER) (test code = 432) BASOPHILS RELATIVE PERCENT 2 % (BEAKER) (test code = 437) NEUTROPHILS ABSOLUTE COUNT 2.92 K/ L 1.80-8.00 (BEAKER) (test code = 670) LYMPHOCYTES ABSOLUTE COUNT 1.73 K/ L 1.48-4.50 (BEAKER) (test code = 414) MONOCYTES ABSOLUTE COUNT (BEAKER) 0.41 K/ L 0.00-1.30 (test code = 415) EOSINOPHILS ABSOLUTE COUNT 0.28 K/ L 0.00-0.50 (BEAKER) (test code = 416) BASOPHILS ABSOLUTE COUNT (BEAKER) 0.08 K/ L 0.00-0.20 (test code = 417) 0.00
[2020-05-28] MEDS ORDERED: HYDROMORPHONE HCL 0.5 MG/0.5 ML INJ ONE ×2 (00:17→01:14)
[2020-05-28] MEDS ORDERED: ONDANSETRON 4 MG/2 ML VIAL ONE (00:17)
[2020-05-28 00:21] LABS: Absolute Lymphocytes (CBC) 1.9 K/uL (0.7-4.9); Basophils % 1.2 % (0-1.3); Lymphocytes % 20.7 % (15.3-44.8); MPV 8.2 fL (7.6-11.3); RBC Red Blood Cell Count 4.52 M/uL (3.86-4.86)
[2020-05-28 00:46] LABS: Albumin 3.8 g/dL (3.4-5.0); Bilirubin Direct 0.1 mg/dL (0-0.2); Bilirubin Total 0.5 mg/dL (0.2-1.0); Potassium 4.7 mmol/L (3.5-5.1); Protein, Total 7.4 g/dL (6.4-8.2)
--- NOTE | 2020-05-28 03:16 | EDPHYS ---
Physician Documentation [facility] Name: Jillian Borden Age: 59 yrs Sex: Female : 1960 Arrival Date: 05/27/2020 Time: 23:14 Bed 14 Private MD: ED Physician Jd Gomez HPI: 05/28 03:41 This 59 yrs old Female presents to ER via Ambulatory with complaints of tw4 Pancreatic Pain, Pancreatic Attack. 03:41 The patient presents with abdominal pain. Onset: The symptoms/episode began/occurred tw4 yesterday. The symptoms do not radiate. Associated signs and symptoms: none. The symptoms are described as sharp. Modifying factors: The symptoms are alleviated by nothing, the symptoms are aggravated by nothing. Severity of pain: At its worst the pain was moderate in the emergency department the pain is unchanged. The patient has not experienced similar symptoms in the past. Historical: - Allergies: 05/27 23:48 Cipro; fc 23:48 Fentanyl Patch; fc 23:48 Hydrocodone-Acetaminophen; fc 23:48 Keflex; fc 23:48 lidocaine patch; fc 23:48 Morphine; fc 23:48 Neurontin; fc 23:48 PENICILLINS; fc 23:48 Stadol; fc 23:48 Sulfa (Sulfonamide Antibiotics); fc 23:48 Codeine; fc 23:48 tramadol; fc 23:48 Tylenol; fc 23:48 Talwin; fc - Home Meds: 23:48 amlodipine 2.5 mg oral tab 1 tab once daily [Active]; hydromorphone 2 mg Oral tab 1 tab fc twice a day [Active]; omeprazole 40 mg Oral cpDR 1 cap 2 times per day [Active]; calcitriol 0.5 mcg Oral cap 2 caps twice a day [Active]; Caltrate Gummy Bites 250-400 mg-unit Oral susp [Active]; Iron CR Oral daily [Active]; vit B 12 1000mcg inj monthly [Active]; Zenpep oral oral 2 with each meal and 1 with each snack [Active]; hydroxyzine HCl 10 mg Oral tab as needed [Active]; calcium carbonate 500 mg calcium (1,250 mg) Oral tab 8 tabs daily [Active]; proair as needed [Active]; - PMHx: 23:48 Asthma; Pancreatitis; Hypertension; hyperparathyroidism; calcium deficiency; fc - PSHx: 23:48 Tubal ligation; Hysterectomy; Cholecystectomy; Appendectomy; Lumpectomy; pancreatic fc stent; Carpal Tunnel Repair; Hernia repair; Bladder suspension; URETHRA STRETCHED; COLONOSCOPY; Gastric Bypass; - Immunization history:: Last tetanus immunization: up to date Pneumococcal vaccine is up to date, Flu vaccine is up to date. - Social history:: Smoking status: Patient denies any tobacco usage or history of. Patient/guardian denies using alcohol, street drugs. ROS: 05/28 03:41 Constitutional: Negative for fever, chills, and weight loss, Eyes: Negative for injury, tw4 pain, redness, and discharge, Cardiovascular: Negative for chest pain, palpitations, and edema, Respiratory: Negative for shortness of breath, cough, wheezing, and pleuritic chest pain, Back: Negative for injury and pain, MS/Extremity: Negative for injury and deformity, Skin: Negative for injury, rash, and discoloration, Neuro: Negative for headache, weakness, numbness, tingling, and seizure. Abdomen/GI: Positive for abdominal pain, Negative for nausea and vomiting, nausea, vomiting, and diarrhea, nausea, abdominal cramps, abdominal distension, anorexia, dysphagia, black/tarry stool, rectal pain. Exam: 03:41 Constitutional: This is a well developed, well nourished patient who is awake, alert, tw4 and in no acute distress. Head/Face: Normocephalic, atraumatic. Chest/axilla: Normal chest wall appearance and motion. Nontender with no deformity. No lesions are appreciated. Cardiovascular: Regular rate and rhythm with a normal S1 and S2. No gallops, murmurs, or rubs. Normal PMI, no JVD. No pulse deficits. Respiratory: Lungs have equal breath sounds bilaterally, clear to auscultation and percussion. No rales, rhonchi or wheezes noted. No increased work of breathing, no retractions or nasal flaring. Back: No spinal tenderness. No costovertebral tenderness. Full range of motion. Skin: Warm, dry with normal turgor. Normal color with no rashes, no lesions, and no evidence of cellulitis. MS/ Extremity: Pulses equal, no cyanosis. Neurovascular intact. Full, normal range of motion. Neuro: Awake and alert, GCS 15, oriented to person, place, time, and situation. Cranial nerves II-XII grossly intact. Motor strength 5/5 in all extremities. Sensory grossly intact. Cerebellar exam normal. Normal gait. 03:41 Abdomen/GI: Inspection: abdomen appears normal, Bowel sounds: diminished, Palpation: moderate abdominal tenderness, in the right upper quadrant. Vital Signs: 05/27 23:25 BP 158 / 88; Pulse 63; Resp 18; Temp 98.6(O); Pulse Ox 100% on R/A; Weight 48.53 kg fc (R); Height 5 ft. 3 in. (160.02 cm) (R); Pain 10/10; 05/28 00:30 BP 110 / 65; Pulse 54; Resp 20; Temp 98.1; Pulse Ox 98% ; Pain 8/10; eb1 02:30 BP 122 / 73; Pulse 54; Resp 16; Pulse Ox 99% ; Pain 7/10; eb1 04:13 BP 112 / 59; Pulse 52; Resp 19; Pulse Ox 98% ; Pain 7/10; eb1 05/27 23:25 Body Mass Index 18.95 (48.53 kg, 160.02 cm) fc MDM: 03:16 Patient medically screened. snw 03:41 Data reviewed: vital signs, nurses notes. Data interpreted: Pulse oximetry: tw4 Interpretation: normal. Test interpretation: by ED physician or midlevel provider: not applicable. Counseling: I had a detailed discussion with the patient and/or guardian regarding: the historical points, exam findings, and any diagnostic results supporting the discharge/admit diagnosis. Medication response: Dilaudid. Response to treatment: the patient's symptoms have markedly improved after treatment, and as a result, I will discharge patient. Special discussion: Based on the patient's Hx, exam, and Dx evaluation, there is no indication for emergent surgery or inpatient Tx. It is understood by the patient/guardian that if the Sx's persist or worsen they need to return immediately for re-evaluation. I discussed with the patient/guardian in detail that at this point there is no indication for admission to the hospital. It is understood, however, that if the symptoms persist or worsen the patient needs to return immediately for re-evaluation. 04:13 Differential diagnosis: appendicitis, cholecystitis, Cholelithiasis, diverticulitis, tw4 gastritis, GI Bleed, Hepatitis, pancreatitis, Peptic Ulcer Disease, Perf. Duodenal Ulcer, Perf. Gastric Ulcer, Peritonitis. 05/27 23:57 Order name: Basic Metabolic Panel tw 05/27 23:57 Order name: CBC with Diff; Complete Time: 03:03 tw 05/27 23:57 Order name: Hepatic Function tw 05/27 23:57 Order name: Lipase; Complete Time: 03:03 [facility] 05/27 23:58 Order name: Basic Metabolic Panel; Complete Time: 03:03 [facility] 05/27 23:58 Order name: Liver (Hepatic) Function; Complete Time: 03:03 [facility] 05/27 23:57 Order name: IV Saline Lock; Complete Time: 00:15 [facility] 05/27 23:57 Order name: Labs collected and sent tw 05/28 00:00 Order name: CT Abd/Pelvis - IV Contrast Only tw4 Administered Medications: 00:21 Drug: Dilaudid 0.5 mg Route: IVP; Site: left hand; eb1 02:41 Follow up: Response: Pain is unchanged, physician notified eb1 00:21 Drug: Zofran (Ondansetron) 4 mg Route: IVP; Site: left wrist; eb1 02:41 Follow up: Response: Nausea is decreased eb1 04:12 Drug: Dilaudid 1 mg Route: IVP; Site: right forearm; eb1 04:12 Drug: Phenergan 12.5 mg Route: IVP; Site: right forearm; eb1 Disposition: 05/28/20 03:16 Discharged to Home. Impression: Upper abdominal pain, unspecified. - Condition is Stable. - Discharge Instructions: Abdominal Pain, Adult, Fat and Cholesterol Restricted Diet, Rehydration, Adult. - Prescriptions for Bentyl 20 mg Oral Tablet - take 1 tablet by ORAL route every 6 hours As needed; 20 tablet. Zofran 4 mg Oral Tablet - take 1 tablet by ORAL route every 12 hours As needed; 6 tablet. - Medication Reconciliation Form, Thank You Letter, Antibiotic Education, Prescription Opioid Use form. - Follow up: Emergency Department; When: As needed; Reason: Worsening of condition. Follow up: Private Physician; When: 2 - 3 days; Reason: Recheck today's complaints, Continuance of care, Re-evaluation by your physician. Signatures: Dispatcher [employer] EDCorinna Caballero, [employer]-C [employer] Viky Rico, RN RN Jd Gomez MD MD tw4 Danette Gotti RN RN eb1 Corrections: (The following items were deleted from the chart) 04:25 03:16 05/28/2020 03:16 Discharged to Home. Impression: Upper abdominal pain, eb1 unspecified. Condition is Stable. Forms are Medication Reconciliation Form, Thank You Letter, Antibiotic Education, Prescription Opioid Use. Follow up: Emergency Department; When: As needed; Reason: Worsening of condition. Follow up: Private Physician; When: 2 - 3 days; Reason: Recheck today's complaints, Continuance of care, Re-evaluation by your physician. snw
--- NOTE | 2020-05-28 03:16 | ER ---
Nurse's Notes [facility] Name: Jillian Borden Age: 59 yrs Sex: Female : 1960 Arrival Date: 05/27/2020 Time: 23:14 Bed 14 Private MD: Diagnosis: Upper abdominal pain, unspecified Presentation: 05/27 23:25 Chief complaint: Patient states: that she is here with complaints of upper abd pain and fc thinks she may have pancreatitis. Was told by here dr to come here. was tested for Covid today for pending ERCP at [facility] in [place] on the . Coronavirus screen: Proceed with normal triage. Patient denies a cough. Patient denies shortness of breath or difficulty breathing. Patient denies measured and/or subjective temperature greater than 100.4F prior to today's visit. Patient denies travel on a cruise ship or to a country the [facility] currently lists as an affected area. Patient denies contact with known and/or suspected case of COVID-19. Ebola Screen: Patient negative for fever greater than or equal to 101.5 degrees Fahrenheit, and additional compatible Ebola Virus Disease symptoms Patient denies exposure to infectious person. Patient denies travel to an Ebola-affected area in the 21 days before illness onset. Initial Sepsis Screen: Does the patient meet any 2 criteria? No. Patient's initial sepsis screen is negative. Does the patient have a suspected source of infection? No. Patient's initial sepsis screen is negative. Risk Assessment: Do you want to hurt yourself or someone else? Patient reports no desire to harm self or others. Onset of symptoms was May 27, 2020. Care prior to arrival: Medication(s) given: zofran at 1430 Hydromorphone 2 mg at 1730. Transition of care: patient was not received from another setting of care. 23:25 Method Of Arrival: Ambulatory 23:25 Acuity: JESSICA 3 fc Triage Assessment: 05/28 03:11 General: Appears in no apparent distress. uncomfortable, well groomed, Behavior is eb1 calm, cooperative, appropriate for age. 03:12 Pain: Complains of pain in left upper quadrant Pain radiates to back Pain began 1 day eb1 ago. Historical: - Allergies: 05/27 23:48 Cipro; fc 23:48 Fentanyl Patch; fc 23:48 Hydrocodone-Acetaminophen; fc 23:48 Keflex; fc 23:48 lidocaine patch; fc 23:48 Morphine; fc 23:48 Neurontin; fc 23:48 PENICILLINS; fc 23:48 Stadol; fc 23:48 Sulfa (Sulfonamide Antibiotics); fc 23:48 Codeine; fc 23:48 tramadol; fc 23:48 Tylenol; fc 23:48 Talwin; fc - Home Meds: 23:48 amlodipine 2.5 mg oral tab 1 tab once daily [Active]; hydromorphone 2 mg Oral tab 1 tab fc twice a day [Active]; omeprazole 40 mg Oral cpDR 1 cap 2 times per day [Active]; calcitriol 0.5 mcg Oral cap 2 caps twice a day [Active]; Caltrate Gummy Bites 250-400 mg-unit Oral susp [Active]; Iron CR Oral daily [Active]; vit B 12 1000mcg inj monthly [Active]; Zenpep oral oral 2 with each meal and 1 with each snack [Active]; hydroxyzine HCl 10 mg Oral tab as needed [Active]; calcium carbonate 500 mg calcium (1,250 mg) Oral tab 8 tabs daily [Active]; proair as needed [Active]; - PMHx: 23:48 Asthma; Pancreatitis; Hypertension; hyperparathyroidism; calcium deficiency; fc - PSHx: 23:48 Tubal ligation; Hysterectomy; Cholecystectomy; Appendectomy; Lumpectomy; pancreatic fc stent; Carpal Tunnel Repair; Hernia repair; Bladder suspension; URETHRA STRETCHED; COLONOSCOPY; Gastric Bypass; - Immunization history:: Last tetanus immunization: up to date Pneumococcal vaccine is up to date, Flu vaccine is up to date. - Social history:: Smoking status: Patient denies any tobacco usage or history of. Patient/guardian denies using alcohol, street drugs. Screenin:25 Abuse screen: Denies threats or abuse. Nutritional screening: No deficits noted. fc Tuberculosis screening: No symptoms or risk factors identified. Fall Risk None identified. Assessment: 05/28 01:00 General: Appears in no apparent distress. uncomfortable, well groomed, Behavior is eb1 calm, cooperative, appropriate for age. Pain: Complains of pain in left upper quadrant Pain radiates to back. Neuro: No deficits noted. Cardiovascular: No deficits noted. Respiratory: No deficits noted. GI: Bowel sounds present X 4 quads. Abd is soft and non tender X 4 quads. Reports nausea, vomiting. : No deficits noted. No signs and/or symptoms were reported regarding the genitourinary system. EENT: No deficits noted. No signs and/or symptoms were reported regarding the EENT system. Derm: No deficits noted. No signs and/or symptoms reported regarding the dermatologic system. Musculoskeletal: No deficits noted. No signs and/or symptoms reported regarding the musculoskeletal system. 02:00 Reassessment: Patient appears in no apparent distress at this time. No changes from eb1 previously documented assessment. Patient and/or family updated on plan of care and expected duration. Pain level reassessed. 03:00 Reassessment: Patient appears in no apparent distress at this time. No changes from eb1 previously documented assessment. Patient and/or family updated on plan of care and expected duration. Pain level reassessed. 04:13 Reassessment: Patient appears in no apparent distress at this time. No changes from eb1 previously documented assessment. Patient and/or family updated on plan of care and expected duration. Pain level reassessed. Vital Signs: 05/27 23:25 BP 158 / 88; Pulse 63; Resp 18; Temp 98.6(O); Pulse Ox 100% on R/A; Weight 48.53 kg fc (R); Height 5 ft. 3 in. (160.02 cm) (R); Pain 10/10; 0703 00:30 BP 110 / 65; Pulse 54; Resp 20; Temp 98.1; Pulse Ox 98% ; Pain 8/10; eb1 02:30 BP 122 / 73; Pulse 54; Resp 16; Pulse Ox 99% ; Pain 7/10; eb1 04:13 BP 112 / 59; Pulse 52; Resp 19; Pulse Ox 98% ; Pain 7/10; eb1 05/27 23:25 Body Mass Index 18.95 (48.53 kg, 160.02 cm) ED Course: 05/27 23:14 Patient arrived in ED. bp1 23:25 Arm band placed on Patient placed in an exam room, on a stretcher. fc 23:25 Patient has correct armband on for positive identification. Placed in gown. Bed in low fc position. Call light in reach. Pulse ox on. NIBP on. 23:41 Triage completed. fc 23:57 [place], Jd, MD is Attending Physician. tw4 05/28 00:05 Inserted saline lock: 20 gauge in right antecubital area, using aseptic technique. mg2 Blood collected. 00:26 Radiology exam delayed due to lab results not completed at this time. (BUN/Creatinine). kw1 02:15 CT Abd/Pelvis - IV Contrast Only In Process Unspecified. EDMS 04:11 No provider procedures requiring assistance completed. IV discontinued, intact, eb1 bleeding controlled, No redness/swelling at site. Administered Medications: 00:21 Drug: Dilaudid 0.5 mg Route: IVP; Site: left hand; eb1 02:41 Follow up: Response: Pain is unchanged, physician notified eb1 00:21 Drug: Zofran (Ondansetron) 4 mg Route: IVP; Site: left wrist; eb1 02:41 Follow up: Response: Nausea is decreased eb1 04:12 Drug: Dilaudid 1 mg Route: IVP; Site: right forearm; eb1 04:12 Drug: Phenergan 12.5 mg Route: IVP; Site: right forearm; eb1 Outcome: 03:16 Discharge ordered by . snw 04:11 Condition: good eb1 04:25 Discharge instructions given to patient, Instructed on discharge instructions, follow eb1 up and referral plans. Demonstrated understanding of instructions, follow-up care, Prescriptions given X 2. 04:25 Discharged to home via wheelchair, with family. eb1 04:25 Patient left the ED. eb1 Signatures: Dispatcher [employer] EDNV Corinna Denis, LIGHT RAIL SIGNAL TECHNICIAN-C LIGHT RAIL SIGNAL TECHNICIAN-Csnw Viky Rico, CURT ELIAS Melva Reyes kw1 Jd Gomez MD MD tw4 Thom Rao RN RN mg2 Danette Gotti RN RN eb1 Katie Becerra bp1
[2020-05-28] MEDS ORDERED: PROMETHAZINE INJ 25 MG/ML AMP ONE (04:00)
[2020-05-28] MEDS ORDERED: HYDROMORPHONE HCL 1 MG/ML INJ ONE (04:01)
[2020-05-28 04:37] VITALS: TEMP 98.1
[2020-05-28 04:40] VITALS: BP 112/59; O2SAT 98
--- NOTE | 2020-05-28 20:08 | RAD REPORT ---
EXAM DESCRIPTION: CT Abdomen and Pelvis With Intravenous Contrast CLINICAL HISTORY: The patient is 59 years old and is Female; ABD PAIN TECHNIQUE: Axial computed tomography images of the abdomen and pelvis with intravenous contrast. Sagittal an d coronal reformatted images were created and reviewed. This CT exam was performed using one or mor e of the following dose reduction techniques: automated exposure control, adjustment of the mA and/ or kV according to patient size, and/or use of iterative reconstruction technique. COMPARISON: No relevant prior studies available. FINDINGS: LUNG BASES: Unremarkable. No mass. No consolidation. ABDOMEN: LIVER: Unremarkable. No mass. GALLBLADDER AND BILE DUCTS: Surgical clips are present in the right upper quadrant, consistent wi th previous cholecystectomy. PANCREAS: No ductal dilation. No mass. SPLEEN: Unremarkable. ADRENALS: Unremarkable. No mass. KIDNEYS AND URETERS: Unremarkable. The kidneys enhance symmetrically. No obstructing renal or ure teral calculus is seen. No hydronephrosis or hydroureter. No perinephric fluid or stranding. STOMACH AND BOWEL: Postsurgical change of the stomach is present. The small bowel is relatively normal in caliber. Stool is noted throughout the colon. No dilated loops of bowel are seen. Scattered colonic diverticula are noted without surrounding inflammation. Postsurgical change of the small bow el is noted. There is no bowel obstruction. PELVIS: APPENDIX: No findings to suggest acute appendicitis. BLADDER: Bladder is well distended. REPRODUCTIVE: Unremarkable as visualized. ABDOMEN and PELVIS: INTRAPERITONEAL SPACE: Trace free fluid is present within the pelvis which is likely physiologic . No free air. BONES/JOINTS: Bilateral hip prostheses are present. These cause streak artifact limiting evaluat ion of the pelvis. SOFT TISSUES: The soft tissues are normal. VASCULATURE: Atherosclerosis of the aorta is present. No abdominal aortic aneurysm. LYMPH NODES: Unremarkable. No enlarged lymph nodes. OTHER FINDINGS: Evidence of an anterior wall mesh is noted within the lower chest. IMPRESSION: Colonic diverticulosis. Electronically signed by: Rosa Kent MD 05/28/2020 2:29 AM CDT Due to temporary technical issues with the PACS/Fluency reporting system, reports are being signed by the in house radiologist without review as a courtesy to ensure prompt reporting. The interpreting r adiologist is fully responsible for the content of the report.
== END 2020-05-28 04:25 | disposition home or self-care (01) ==
LOC: ER 23:11
DX: R10.10 Upper abdominal pain, unspecified (principal); K85.90 Acute pancreatitis without necrosis or infection, unspecified; I10 Essential (primary) hypertension; E21.3 Hyperparathyroidism, unspecified; J45.909 Unspecified asthma, uncomplicated; Z88.0 Allergy status to penicillin; Z88.1 Allergy status to other antibiotic agents; Z88.2 Allergy status to sulfonamides; Z88.5 Allergy status to narcotic agent; Z88.8 Allergy status to other drugs, medicaments and biological substances; Z88.6 Allergy status to analgesic agent
CPT/HCPCS: 85025; 80048; 36415; 80076; 83690; 74177; 96375; 96374; 99284; Q9967; J2550; J1170 ×3; J2405